=== PATIENT | male | born 1940 | race Caucasian/White ===

== ENCOUNTER 2022-03-28 17:33 | Emergency (ER) | payer MEDICAID, SELFPAY ==
--- NOTE | ~2022-03-28 | CT_ITS ---
EXAMINATION: CT HEAD WITHOUT CONTRAST (STROKE PROTOCOL) CLINICAL INFORMATION: Aphasia COMPARISON: None. TECHNIQUE: Contiguous axial imaging was performed from the skull base to vertex without intravenous administration of contrast. Coronal and sagittal reformatted images are performed at the CT scanner. [This CT examination was performed using dose optimization techniques as appropriate, variously including the following: *Automated exposure control *Adjustment of mA and/or kV according to patient size (this includes techniques or standardized protocols for targeted exams where dose is matched to indication/reason for exam; i.e. extremities or head) *Use of iterative reconstruction technique] DLP: 772 mGy-cm. FINDINGS: There is no evidence of acute intracranial hemorrhage or territorial infarction. No abnormal mass-effect or midline shift is seen. Quintanilla to white matter differentiation is well preserved. No extra-axial fluid collections are identified. There is generalized global volume loss. There is mild prominence of the ventricles and the sulci . There is mild hypodensity of the periventricular white matter due to chronic small vessel ischemic disease. There are vascular calcifications of the internal carotid arteries bilaterally. There is no osseous abnormality. The mastoid air cells and visualized portions of the paranasal sinuses are well-aerated. CT/CT head for stroke IMPRESSION: No acute intracranial pathology. This critical result was discussed with Dr Vero Cohen at 1748 hours on 03/28/2022. It was ascertained that the content and urgency of the report was understood at the time of direct communication.
--- NOTE | ~2022-03-28 | CT_ITS ---
EXAMINATION: CT ANGIOGRAM NECK WITH CONTRAST CT ANGIOGRAM BRAIN WITH CONTRAST CT CERVICAL SPINE WITHOUT CONTRAST CLINICAL INFORMATION: Stroke. Trauma. COMPARISON: None. TECHNIQUE: CT cervical spine was performed without contrast. Test bolus sequences followed by intravenous administration 100 mL of Omnipaque 350. Helical imaging was performed in the axial plane from the thoracic inlet to the skull vertex. Delayed postcontrast imaging of the head was also performed. The data was processed at the vascular technologist sonographer workstation for generation of MIP sequences. Angled MIPs and volume rendered reformatted images were also generated at an offline 3D workstation. Stenoses are assessed in accordance with NASCET criteria unless otherwise indicated. This CT examination was performed using dose optimization techniques as appropriate, variously including the following: *Automated exposure control *Adjustment of mA and/or kV according to patient size (this includes techniques or standardized protocols for targeted exams where dose is matched to indication/reason for exam; i.e. extremities or head) *Use of iterative reconstruction technique DLP: 2129 mGy-cm FINDINGS: Head CT: There is no intracranial hemorrhage, large acute infarction, or mass lesion. The ventricles are normal in size and configuration without evidence of hydrocephalus. No abnormal enhancement is seen. The dural venous sinuses are normally opacified. The visualized paranasal sinuses and mastoid air cells are clear. Neck CTA: Atheromatous changes are seen involving the aortic arch but without associated stenosis of the great vessel origins. The bilateral common carotid arteries are patent. There is intraluminal thrombus within the proximal left internal carotid artery as well as in the proximal left external carotid artery. Intraluminal clot results in severe stenosis of the proximal left internal carotid artery. More distally the cervical left ICA is patent. Mild atheromatous changes are seen at the right carotid bifurcation without significant stenosis. Both cervical ICAs demonstrate mildly beaded morphology which may represent underlying fibromuscular dysplasia. There is focal stenosis of the right and left vertebral artery origins. Atheromatous changes are seen along the cervical segment of left vertebral artery without high-grade narrowing. Head CTA: The intracranial ICAs are patent. There is focal occlusion of the proximal left M2 MCA segment the left-sided MCA collaterals are decreased compared with the contralateral side. The ACAs are patent. The right MCA is patent. The intradural vertebral arteries demonstrate significant atheromatous changes distally with moderate stenosis at the left vertebral basilar junction. There is origin of the right APPLE SORTER. Both hi lift operator are patent. No definite aneurysm is seen. Non-vascular findings: The cervical soft tissues are within normal limits. No consolidation is seen within the lungs. Cervical spine: The cervical vertebral bodies maintain normal heights and alignment. No fractures seen. The craniovertebral junction is intact. There is no significant osseous narrowing of the spinal canal. There is uncovertebral hypertrophy mildly narrowing the neural foramina. CT/CT angio head neck stroke IMPRESSION: CT HEAD: No intracranial hemorrhage or large acute infarction. 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 Intraluminal thrombus also seen within the proximal left external carotid artery. CTA HEAD: 1. Occlusion of the proximal left M2 MCA segment with decreased left MCA collaterals. Cervical spine: No fracture or malalignment. This critical result was discussed with Dr. Pham on 03/28/2022 6:24 PM, and it was ascertained that the content and urgency of the report was understood at the time of direct communication.
--- NOTE | ~2022-03-28 | CT_ITS ---
EXAMINATION: CT ANGIOGRAM NECK WITH CONTRAST CT ANGIOGRAM BRAIN WITH CONTRAST CT CERVICAL SPINE WITHOUT CONTRAST CLINICAL INFORMATION: Stroke. Trauma. COMPARISON: None. TECHNIQUE: CT cervical spine was performed without contrast. Test bolus sequences followed by intravenous administration 100 mL of Omnipaque 350. Helical imaging was performed in the axial plane from the thoracic inlet to the skull vertex. Delayed postcontrast imaging of the head was also performed. The data was processed at the fish technologist workstation for generation of MIP sequences. Angled MIPs and volume rendered reformatted images were also generated at an offline 3D workstation. Stenoses are assessed in accordance with NASCET criteria unless otherwise indicated. This CT examination was performed using dose optimization techniques as appropriate, variously including the following: *Automated exposure control *Adjustment of mA and/or kV according to patient size (this includes techniques or standardized protocols for targeted exams where dose is matched to indication/reason for exam; i.e. extremities or head) *Use of iterative reconstruction technique DLP: 2129 mGy-cm FINDINGS: Head CT: There is no intracranial hemorrhage, large acute infarction, or mass lesion. The ventricles are normal in size and configuration without evidence of hydrocephalus. No abnormal enhancement is seen. The dural venous sinuses are normally opacified. The visualized paranasal sinuses and mastoid air cells are clear. Neck CTA: Atheromatous changes are seen involving the aortic arch but without associated stenosis of the great vessel origins. The bilateral common carotid arteries are patent. There is intraluminal thrombus within the proximal left internal carotid artery as well as in the proximal left external carotid artery. Intraluminal clot results in severe stenosis of the proximal left internal carotid artery. More distally the cervical left ICA is patent. Mild atheromatous changes are seen at the right carotid bifurcation without significant stenosis. Both cervical ICAs demonstrate mildly beaded morphology which may represent underlying fibromuscular dysplasia. There is focal stenosis of the right and left vertebral artery origins. Atheromatous changes are seen along the cervical segment of left vertebral artery without high-grade narrowing. Head CTA: The intracranial ICAs are patent. There is focal occlusion of the proximal left M2 MCA segment the left-sided MCA collaterals are decreased compared with the contralateral side. The ACAs are patent. The right MCA is patent. The intradural vertebral arteries demonstrate significant atheromatous changes distally with moderate stenosis at the left vertebral basilar junction. There is origin of the right OPERATIONS SECTION MANAGER. Both emu farm worker are patent. No definite aneurysm is seen. Non-vascular findings: The cervical soft tissues are within normal limits. No consolidation is seen within the lungs. Cervical spine: The cervical vertebral bodies maintain normal heights and alignment. No fractures seen. The craniovertebral junction is intact. There is no significant osseous narrowing of the spinal canal. There is uncovertebral hypertrophy mildly narrowing the neural foramina. CT/CT cervical spine wo IV con IMPRESSION: CT HEAD: No intracranial hemorrhage or large acute infarction. 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 Intraluminal thrombus also seen within the proximal left external carotid artery. CTA HEAD: 1. Occlusion of the proximal left M2 MCA segment with decreased left MCA collaterals. Cervical spine: No fracture or malalignment. This critical result was discussed with Dr. Pham on 03/28/2022 6:24 PM, and it was ascertained that the content and urgency of the report was understood at the time of direct communication.
--- NOTE | 2022-03-28 17:37 | ECG_ITS ---
Test Reason : AMS Blood Pressure : / mmHG Vent. Rate : 069 BPM Atrial Rate : 069 BPM P-R Int : 152 ms QRS Dur : 104 ms QT Int : 440 ms P-R-T Axes : 064 000 137 degrees QTc Int : 471 ms Normal sinus rhythm with sinus arrhythmia Left ventricular hypertrophy with repolarization abnormality ( R in aVL , Sokolow-Lopez , Christiano product ) Inferior infarct , age undetermined Abnormal ECG No previous ECGs available Referred By: Noel Pahm Electronically Signed By:ELIZABETH SLOAN
[2022-03-28 17:43] VITALS: BMI 25.0
[2022-03-28 17:50] VITALS: BP 190/90; PULSE 54; RESP 16; O2SAT 96
[2022-03-28 17:50] LABS: MANUAL DIFF FLAG NO
--- NOTE | 2022-03-28 17:51 | ED.NEUROSD ---
HPI - Neuro Symptoms/Deficit General Chief Complaint: Stroke Stated Complaint: stroke alert Time Seen by Provider: 03/28/22 17:35 Source: family and EMS Mode of arrival: EMS History of Present Illness HPI Narrative: Pt was seen at arrival,hx taken by son with financial aid advisor (Socrates) per son since noon pt has been complaining of rt side numbness the fell 1/2 h ago sustaine head injury and frontal abrasion,he arrive with Ccollar aphasic at thsi time directed to ct Onset (ago): hour(s) (6 h ago (this was confermed by son)) Timing confirmed by: other (son ) Location: speech Severity: moderate Related Data Allergies Allergy/AdvReac Type Severity Reaction Status Date / Time Unable to Assess Allergy Unverified 03/28/22 17:35 Review of Systems Review of Systems: Yes Unobtainable due to mental condition PMFSH Past Medical History [facility] Narrative: HTN/CAD Social History Social History Advance Directives: No Advance Directives Information Provided: Yes Physical Exam Vital Signs: Vital Signs: Last Vital Signs Pulse 54 03/28/22 17:50 Resp 16 03/28/22 17:50 BP 201/86 H 03/28/22 18:26 Pulse Ox 96 03/28/22 17:50 O2 Del Method 03/28/22 17:50 BMI result Body Mass Index 25.0 Const: Other: aphasic ,abrasion in the nose Nutritional Appearance: average body habitus Orientation/consciousness: Other orientation findings (aphasic) HEENT: Head: Yes other (abrasion nose) Mouth: Normal oral and palatal mucosa present Eyes: General: appearance normal, both eyes and all related structures Neck: Other: c-collar on Chest: Chest palpation & inspection: normal inspection of the chest Resp: Effort & Inspection: normal respiratory effort Auscultation: clear to auscultation bilaterally Cardio: Jugular venous distension: no JVD Rate: regular rate Rhythm: regular rhythm GI: Inspection: Yes normal to inspection Palpation (GI): Soft to palpation, not firm and nontender Auscultation: normal bowel sounds Neuro: Other: He is aphasic he has a dense hemyplegia in the right side he moves the left side of the body okay unable to follow command fully he has a stroke scale calculated of about 23 Course Reevaluation(s) Reevaluation #1: spoke with neurologist Dr Wallace no TPA out of window Time: 18:00 Reevaluation #2: called to [facility] requested to speak to stroke team they will calll me back,cta showed MCA occlusion ,I was just notified by neuroradiologist Time: 18:32 Reevaluation #3: Spoke with [facility] accepted in transfer Medications Administered Discontinued Medications Generic Name Dose Route Start Last Admin Trade Name Kathy PRN Reason Stop Dose Admin Iohexol 100 ml 03/28/22 18:53 03/28/22 18:53 Iohexol 350 Mg/Ml 100 Ml Infus..Btl IV 03/28/22 18:54 70 ml ONCE ONE Administration Labetalol HCl 5 mg 03/28/22 18:41 03/28/22 18:52 Labetalol Hcl 100 Mg/20 Ml Vial IVPUSH 03/28/22 18:42 5 mg ONCE ONE Administration Medical Decision Making Medical Decision Making [facility] Narrative: This is a 81 years old man who presented with right hemispheric stroke, according to the son and the onset was 6 hours ago he was numb weak in the right side but got worse fell out of the bed. Because symptoms started and noon according to the son I do not think tPA is indicated, also there is a fall with an abrasion in the face. I did CT angiography if he has a large vessel occlusion will consider transfer to tertiary center Consult Healthcare Provider Management of the patient was discussed with: Keymodule Assembly Supervisor (neurologist Dr Mckinley) Lab Data Result Diagrams: 03/28/22 17:45 03/28/22 18:27 Labs: Lab Results 03/28/22 03/28/22 03/28/22 Range/Units 17:44 17:44 17:45 WBC 7.2 (4.8-10.8) X10*3/uL RBC 4.58 L (4.60-5.80) X10*6/uL Hgb 14.2 (14.0-18.0) g/dl Hct 41.0 L (42.0-52.0) % MCV 89.5 (80.0-98.0) fL MCH 31.0 (27.0-33.0) pg MCHC 34.6 (31.0-36.0) g/dl RDW 12.7 (11.0-16.0) % Plt Count 214 (160-400) X10*3/uL MPV 11.1 (9.4-12.4) fL Immature Gran % (Auto) 0.3 (0.0-0.4) % Neut % (Auto) 59.4 (45-73) % Lymph % (Auto) 29.2 (20-40) % Teller % (Auto) 6.5 (2-11) % Eos % (Auto) 4.3 H (0-4) % Baso % (Auto) 0.3 (0-2) % Lymph # (Auto) 2.1 (1.2-4.9) X10*3/uL Teller # (Auto) 0.5 (0.1-1.2) X10*3/uL Eos # (Auto) 0.3 (0.0-0.4) X10*3/uL Baso # (Auto) 0.0 (0.0-0.2) X10*3/uL Abs Immat Gran (auto) 0.02 (0.00-0.03) X10*3/uL Absolute Neuts (auto) 4.3 (2.0-8.3) x10*3/uL Absolute Nucleated RBC 0.000 (0.0-0.012) X10*3/uL Nucleated RBC % (auto) 0.0 (0.0-0.2) /100WBC PT (10.0-13.1) SEC Whole Blood PT 12.5 (11.1-13.5) sec INR (0.9-1.1) Whole Blood INR 1.0 (0.9-1.1) APTT (26.0-36.4) SEC Sodium (135-145) mmol/L Potassium (3.3-5.1) mmol/L Chloride (96-108) mmol/L Carbon Dioxide (22-29) mmol/L Anion Gap (12-20) BUN (9-16) mg/dL Creatinine (0.5-1.4) mg/dL Estim Creat Clear Calc Estimated GFR POC Glucose 146 H (60-115) mg/dL Random Glucose (60-115) mg/dL Calcium (8.4-10.2) mg/dL Total Bilirubin (0.0-1.0) mg/dL AST (5-37) U/L ALT (0-40) U/L Alkaline Phosphatase (39-117) U/L Troponin I High Sens (<3.5-35.0) ng/L Total Protein (6.5-8.0) g/dL Albumin (3.5-5.0) g/dL COVID-19 (CHARLES) (Negative) COVID-19 Clin Com 03/28/22 03/28/22 03/28/22 Range/Units 17:45 17:45 17:45 WBC (4.8-10.8) X10*3/uL RBC (4.60-5.80) X10*6/uL Hgb (14.0-18.0) g/dl Hct (42.0-52.0) % MCV (80.0-98.0) fL MCH (27.0-33.0) pg MCHC (31.0-36.0) g/dl RDW (11.0-16.0) % Plt Count (160-400) X10*3/uL MPV (9.4-12.4) fL Immature Gran % (Auto) (0.0-0.4) % Neut % (Auto) (45-73) % Lymph % (Auto) (20-40) % Teller % (Auto) (2-11) % Eos % (Auto) (0-4) % Baso % (Auto) (0-2) % Lymph # (Auto) (1.2-4.9) X10*3/uL Teller # (Auto) (0.1-1.2) X10*3/uL Eos # (Auto) (0.0-0.4) X10*3/uL Baso # (Auto) (0.0-0.2) X10*3/uL Abs Immat Gran (auto) (0.00-0.03) X10*3/uL Absolute Neuts (auto) (2.0-8.3) x10*3/uL Absolute Nucleated RBC (0.0-0.012) X10*3/uL Nucleated RBC % (auto) (0.0-0.2) /100WBC PT 11.9 (10.0-13.1) SEC Whole Blood PT (11.1-13.5) sec INR 1.0 (0.9-1.1) Whole Blood INR (0.9-1.1) APTT 29.2 Cancelled (26.0-36.4) SEC Sodium (135-145) mmol/L Potassium (3.3-5.1) mmol/L Chloride (96-108) mmol/L Carbon Dioxide (22-29) mmol/L Anion Gap (12-20) BUN (9-16) mg/dL Creatinine (0.5-1.4) mg/dL Estim Creat Clear Calc Estimated GFR POC Glucose (60-115) mg/dL Random Glucose (60-115) mg/dL Calcium (8.4-10.2) mg/dL Total Bilirubin (0.0-1.0) mg/dL AST (5-37) U/L ALT (0-40) U/L Alkaline Phosphatase (39-117) U/L Troponin I High Sens 232.0 H* (<3.5-35.0) ng/L Total Protein (6.5-8.0) g/dL Albumin (3.5-5.0) g/dL COVID-19 (CHARLES) (Negative) COVID-19 Clin Com 03/28/22 03/28/22 Range/Units 18:27 18:32 WBC (4.8-10.8) X10*3/uL RBC (4.60-5.80) X10*6/uL Hgb (14.0-18.0) g/dl Hct (42.0-52.0) % MCV (80.0-98.0) fL MCH (27.0-33.0) pg MCHC (31.0-36.0) g/dl RDW (11.0-16.0) % Plt Count (160-400) X10*3/uL MPV (9.4-12.4) fL Immature Gran % (Auto) (0.0-0.4) % Neut % (Auto) (45-73) % Lymph % (Auto) (20-40) % Teller % (Auto) (2-11) % Eos % (Auto) (0-4) % Baso % (Auto) (0-2) % Lymph # (Auto) (1.2-4.9) X10*3/uL Teller # (Auto) (0.1-1.2) X10*3/uL Eos # (Auto) (0.0-0.4) X10*3/uL Baso # (Auto) (0.0-0.2) X10*3/uL Abs Immat Gran (auto) (0.00-0.03) X10*3/uL Absolute Neuts (auto) (2.0-8.3) x10*3/uL Absolute Nucleated RBC (0.0-0.012) X10*3/uL Nucleated RBC % (auto) (0.0-0.2) /100WBC PT (10.0-13.1) SEC Whole Blood PT (11.1-13.5) sec INR (0.9-1.1) Whole Blood INR (0.9-1.1) APTT (26.0-36.4) SEC Sodium 135 (135-145) mmol/L Potassium 3.0 L (3.3-5.1) mmol/L Chloride 99 (96-108) mmol/L Carbon Dioxide 29 (22-29) mmol/L Anion Gap 10 L (12-20) BUN 19 H (9-16) mg/dL Creatinine 1.33 (0.5-1.4) mg/dL Estim Creat Clear Calc 42.1 Estimated GFR 52 POC Glucose (60-115) mg/dL Random Glucose 152 H (60-115) mg/dL Calcium 9.0 (8.4-10.2) mg/dL Total Bilirubin 1.4 H (0.0-1.0) mg/dL AST 17 (5-37) U/L ALT 16 (0-40) U/L Alkaline Phosphatase 81 (39-117) U/L Troponin I High Sens (<3.5-35.0) ng/L Total Protein 7.1 (6.5-8.0) g/dL Albumin 4.1 (3.5-5.0) g/dL COVID-19 (CHARLES) Negative (Negative) COVID-19 Clin Com See Note Critical Care Time Critical Care Time Critical Care Time: Yes Total Critical Care Time: 60 Attestation: Taking care of the patient, speaking with the family, speaking with our Neurology, speaking with the neurology a [facility] and the neuroradiologist [facility], arranging transfer Discharge Plan Discharge Clinical Impression: Cerebrovascular accident Patient Disposition: Xfer Acute Care Hospital Transfer Details: Transfer [facility] Interventions: Acute Care Transfer Worksheet (ED) Last Done: 03/28/22 19:12 Discharge Date/Time: 03/28/22 19:13
[2022-03-28 17:53] LABS: Basophils Percent Auto 0.3 % (0-2); Eosinophils Absolute Auto 0.3 X10*3/uL (0.0-0.4); Eosinophils Percent Auto 4.3 % (0-4); Hemoglobin 14.2 g/dl (14.0-18.0); Imm Gran Abs Auto 0.02 X10*3/uL (0.00-0.03); Imm Gran Pct Auto 0.3 % (0.0-0.4); Lymphocytes Absolute Auto 2.1 X10*3/uL (1.2-4.9); Lymphocytes Percent Auto 29.2 % (20-40); Mean Corpuscular HGB Conc 34.6 g/dl (31.0-36.0); Mean Corpuscular Volume 89.5 fL (80.0-98.0); Mean Platelet Volume 11.1 fL (9.4-12.4); Monocytes Absolute Auto 0.5 X10*3/uL (0.1-1.2); Monocytes Percent Auto 6.5 % (2-11); Neutrophils Absolute Auto 4.3 x10*3/uL (2.0-8.3); Neutrophils Percent Auto 59.4 % (45-73); Platelet Count 214 X10*3/uL (160-400); Red Blood Count 4.58 X10*6/uL (4.60-5.80); Red Cell Distribution Width 12.7 % (11.0-16.0); White Blood Count 7.2 X10*3/uL (4.8-10.8)
[2022-03-28 17:59] LABS: Prothrombin Time 11.9 SEC (10.0-13.1)
[2022-03-28 18:01] LABS: Partial Thromboplastin Time 29.2 SEC (26.0-36.4)
--- NOTE | 2022-03-28 18:06 | PC.NURSE ---
After talking with son Pt started having symptoms at 10am and noon. Symptoms worsened at 1730.
[2022-03-28 18:26] VITALS: BP 201/86
[2022-03-28 18:32] LABS: Prothrombin Time Whole Bld POC 12.5 sec (11.1-13.5)
[2022-03-28 18:33] LABS: Glucose, Whole Blood 146 mg/dL (60-115)
[2022-03-28 18:48] LABS: Alanine Aminotransferase 16 U/L (0-40); Albumin Level 4.1 g/dL (3.5-5.0); Alkaline Phosphatase 81 U/L (39-117); Anion Gap 10 (12-20); Aspartate Amino Transferase 17 U/L (5-37); Bilirubin Total 1.4 mg/dL (0.0-1.0); Blood Urea Nitrogen 19 mg/dL (9-16); Carbon Dioxide 29 mmol/L (22-29); Chloride 99 mmol/L (96-108); Creatinine Clr Calc Pharmacy 42.1; Estimated Glomerular Filt Rate 52; Glucose Random 152 mg/dL (60-115); Sodium 135 mmol/L (135-145); Total Protein 7.1 g/dL (6.5-8.0)
[2022-03-28] MEDS: Labetalol HCL 100 MG/20 ML VIAL IVPUSH (18:52)
[2022-03-28] MEDS: iohexoL 350 MG/ML 100 ML INFUS..BTL IV (18:53)
[2022-03-28 18:59] LABS: COVID-19 Test Negative (Negative)
--- NOTE | 2022-03-28 19:06 | MHC.EDTECH ---
At 183 was making a call to the Stroke transfer line. At 184 [facility] called and accepted the patient, to the ER.Radha called for a stat ALS at 1842 per .[facility] arrived at 1900 to transport patient.Davin green
== END 2022-03-28 19:13 | disposition short-term general hospital (02) ==
PROVIDERS: Emergency Provider Emergency Medicine; PCP Internal Medicine
DX: I63.9 Cerebral infarction, unspecified (principal); R20.0 Anesthesia of skin; Z20.822 Contact with and (suspected) exposure to COVID-19; Z79.899 Other long term (current) drug therapy
CPT/HCPCS: 36415; 70450; 70496; 70498; 72125; 80053; 82947; 84484; 85025; 85610; 85730; 87635; 93005; 96374; 99285; Q9967

== ENCOUNTER 2022-07-03 20:53 | Emergency (ER) | payer OTHER, SELFPAY ==
--- NOTE | ~2022-07-03 | XR_ITS ---
EXAMINATION: XR CHEST CLINICAL INFORMATION: Chest pain COMPARISON: None available. TECHNIQUE: Frontal view of the chest was obtained. FINDINGS: The lungs are hyperinflated but clear of acute process. Heart size is normal. Battery operated hardware likely recorder is noted overlying the left mid chest. Pulmonary vascularity is prominent suspicious of mild congestion. There is mild levoscoliosis of dorsal spine. XR/XR chest 1V IMPRESSION: Suspect mild pulmonary vascular congestion. No acute pneumonic process seen.
--- NOTE | 2022-07-03 20:57 | ECG_ITS ---
Test Reason : CP Blood Pressure : / mmHG Vent. Rate : 074 BPM Atrial Rate : 074 BPM P-R Int : 148 ms QRS Dur : 094 ms QT Int : 408 ms P-R-T Axes : 079 015 105 degrees QTc Int : 452 ms Poor data quality Normal sinus rhythm ST & T wave abnormality, consider lateral ischemia Possible Inferior infarct Abnormal ECG When compared to the previous EKG of No significant changes seen Referred By: Sarbjit Pitts Electronically Signed By:KARY STAFFORD MD
[2022-07-03 20:59] VITALS: BP 146/68; PULSE 70; RESP 18; TEMP 36.7; O2SAT 99; BMI 19.3
--- NOTE | 2022-07-03 21:01 | ED_ITS ---
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 comes here for sharp chest pain started at 20:00 lasted for 2 hours patient had cardiogram and 2 sets of troponin done prior to my evaluation which were normal no delta change in troponin pain was sharp in character lasting for few seconds no radiation of the pain no diaphoresis no shortness of breath <Kurtis Rojas MD - Last Filed: 07/04/22 01:08> Related Data Allergies/adverse reactions: Allergies Allergy/AdvReac Type Severity Reaction Status Date / Time No Known Allergies Allergy Verified 07/03/22 21:03 <Sarbjit Pitts - Last Filed: 07/03/22 21:03> Review of Systems Review of Systems: Yes all other systems are reviewed and are negative <Kurtis Rojas MD - Last Filed: 07/04/22 01:08> [facility] Social History Social History: Social History Advance Directives: No <Sarbjit Pitts - Last Filed: 07/03/22 21:03> Physical Exam ED Vital Signs: Vital Signs - 24 hr 07/03/22 20:59 07/04/22 00:35 Temperature 98.0 F 98.4 F Pulse Rate 70 78 Respiratory Rate 18 12 Blood Pressure 146/68 H 151/70 H Pulse Oximetry 99 99 Oxygen Delivery Method Room Air Room Air BMI result Body Mass Index 19.3 <Sarbjit Pitts - Last Filed: 07/03/22 21:03> Vital Signs - 24 hr 07/03/22 20:59 07/04/22 00:35 Temperature 98.0 F 98.4 F Pulse Rate 70 78 Respiratory Rate 18 12 Blood Pressure 146/68 H 151/70 H Pulse Oximetry 99 99 Oxygen Delivery Method Room Air Room Air BMI result Body Mass Index 19.3 <Kurtis Rojas MD - Last Filed: 07/04/22 01:08> Appearance: Alert. Oriented X3. No acute distress. ENT: Pharynx normal. Oral Mucosa moist Neck: Normal inspection. Neck supple. CVS: Normal heart rate and rhythm. Pulses normal. Respiratory: No respiratory distress. Equal air entry bilateral, no wheezing/rales/rhonchi Abdomen: Soft and nontender. Bowel sounds are present, Skin: Skin warm and dry. Normal skin color. Normal skin turgor. Extremities: No lower extremity edema. No calf tenderness Neuro: Oriented X 3. Expressive aphasia right hemiparesis <Kurtis Rojas MD - Last Filed: 07/04/22 01:08> Course Course Course Narrative: 81-year-old male who is primarily Serbian-speaking presents for evaluation of chest pain. He has a history of previous CVA. He has expressive aphasia at baseline that is unchanged per family. He has decreased range of motion of the right upper extremity which is also at baseline. The patient has had chest pain for the last 20 or 30 minutes. EKG, labs ordered. Chest x-ray also ordered. <Sarbjit Pitts - Last Filed: 07/03/22 21:03> Medical Decision Making Medical Decision Making [facility] Narrative: Patient with atypical chest pain and normal EKG no change in delta troponin patient has event monitor placed on his left chest which she pressed at the time of chest pain did not notice any palpitations will discharge patient home advised to follow up with lithographic proofer <Kurtis Rojas MD - Last Filed: 07/04/22 01:08> Lab Data [facility] Lab Attestation statement: I reviewed the patient's lab results. <Kurtis Rojas MD - Last Filed: 07/04/22 01:08> Result Diagrams: 07/03/22 21:17 07/03/22 21:17 <Sarbjit Pitts - Last Filed: 07/03/22 21:03> Labs: Lab Results 07/03/22 07/03/22 07/03/22 Range/Units 21:07 21:17 21:17 WBC 7.7 (4.8-10.8) X10*3/uL RBC 3.44 L D (4.60-5.80) X10*6/uL Hgb 10.9 L D (14.0-18.0) g/dl Hct 32.6 L D (42.0-52.0) % MCV 94.8 (80.0-98.0) fL MCH 31.7 (27.0-33.0) pg MCHC 33.4 (31.0-36.0) g/dl RDW 13.2 (11.0-16.0) % Plt Count 272 D (160-400) X10*3/uL MPV 10.8 (9.4-12.4) fL Immature Gran % (Auto) 0.3 (0.0-0.4) % Neut % (Auto) 60.4 (45-73) % Lymph % (Auto) 22.4 (20-40) % [place] % (Auto) 7.8 (2-11) % Eos % (Auto) 8.7 H (0-4) % Baso % (Auto) 0.4 (0-2) % Lymph # (Auto) 1.7 (1.2-4.9) X10*3/uL [place] # (Auto) 0.6 (0.1-1.2) X10*3/uL Eos # (Auto) 0.7 H (0.0-0.4) X10*3/uL Baso # (Auto) 0.0 (0.0-0.2) X10*3/uL Abs Immat Gran (auto) 0.02 (0.00-0.03) X10*3/uL Absolute Neuts (auto) 4.7 (2.0-8.3) x10*3/uL Absolute Nucleated RBC 0.000 (0.0-0.012) X10*3/uL Nucleated RBC % (auto) 0.0 (0.0-0.2) /100WBC PT 11.7 (10.0-13.1) SEC INR 1.0 (0.9-1.1) APTT 30.7 (26.0-36.4) SEC Sodium (135-145) mmol/L Potassium (3.3-5.1) mmol/L Chloride (96-108) mmol/L Carbon Dioxide (22-29) mmol/L Anion Gap (12-20) BUN (9-16) mg/dL Creatinine (0.5-1.4) mg/dL Estim Creat Clear Calc Estimated GFR Random Glucose (60-115) mg/dL Calcium (8.4-10.2) mg/dL Magnesium (1.6-2.6) mg/dL Total Bilirubin (0.0-1.0) mg/dL AST (5-37) U/L ALT (0-40) U/L Alkaline Phosphatase (39-117) U/L Troponin I High Sens (<3.5-35.0) ng/L Total Protein (6.5-8.0) g/dL Albumin (3.5-5.0) g/dL Lipase (8-78) U/L Influenza Type A (PCR) NEGATIVE (Negative) Influenza Type B (PCR) NEGATIVE (Negative) RSV RNA Qual (PCR) NEGATIVE (Negative) SARS-CoV-2 RNA (RT-PCR) NEGATIVE (Negative) 07/03/22 07/03/22 07/04/22 Range/Units 21:17 21:17 00:27 WBC (4.8-10.8) X10*3/uL RBC (4.60-5.80) X10*6/uL Hgb (14.0-18.0) g/dl Hct (42.0-52.0) % MCV (80.0-98.0) fL MCH (27.0-33.0) pg MCHC (31.0-36.0) g/dl RDW (11.0-16.0) % Plt Count (160-400) X10*3/uL MPV (9.4-12.4) fL Immature Gran % (Auto) (0.0-0.4) % Neut % (Auto) (45-73) % Lymph % (Auto) (20-40) % [place] % (Auto) (2-11) % Eos % (Auto) (0-4) % Baso % (Auto) (0-2) % Lymph # (Auto) (1.2-4.9) X10*3/uL [place] # (Auto) (0.1-1.2) X10*3/uL Eos # (Auto) (0.0-0.4) X10*3/uL Baso # (Auto) (0.0-0.2) X10*3/uL Abs Immat Gran (auto) (0.00-0.03) X10*3/uL Absolute Neuts (auto) (2.0-8.3) x10*3/uL Absolute Nucleated RBC (0.0-0.012) X10*3/uL Nucleated RBC % (auto) (0.0-0.2) /100WBC PT (10.0-13.1) SEC INR (0.9-1.1) APTT (26.0-36.4) SEC Sodium 138 (135-145) mmol/L Potassium 4.6 D (3.3-5.1) mmol/L Chloride 105 (96-108) mmol/L Carbon Dioxide 24 (22-29) mmol/L Anion Gap 14 (12-20) BUN 18 H (9-16) mg/dL Creatinine 1.22 (0.5-1.4) mg/dL Estim Creat Clear Calc 43.7 Estimated GFR 57 Random Glucose 144 H (60-115) mg/dL Calcium 9.1 (8.4-10.2) mg/dL Magnesium 1.9 (1.6-2.6) mg/dL Total Bilirubin 0.6 (0.0-1.0) mg/dL AST 19 (5-37) U/L ALT 20 (0-40) U/L Alkaline Phosphatase 87 (39-117) U/L Troponin I High Sens 6.4 D 6.7 (<3.5-35.0) ng/L Total Protein 7.3 (6.5-8.0) g/dL Albumin 4.2 (3.5-5.0) g/dL Lipase 72 (8-78) U/L Influenza Type A (PCR) (Negative) Influenza Type B (PCR) (Negative) RSV RNA Qual (PCR) (Negative) SARS-CoV-2 RNA (RT-PCR) (Negative) <Sarbjit Pitts - Last Filed: 07/03/22 21:03> Lab Results 07/03/22 07/03/22 07/03/22 Range/Units 21:07 21:17 21:17 WBC 7.7 (4.8-10.8) X10*3/uL RBC 3.44 L D (4.60-5.80) X10*6/uL Hgb 10.9 L D (14.0-18.0) g/dl Hct 32.6 L D (42.0-52.0) % MCV 94.8 (80.0-98.0) fL MCH 31.7 (27.0-33.0) pg MCHC 33.4 (31.0-36.0) g/dl RDW 13.2 (11.0-16.0) % Plt Count 272 D (160-400) X10*3/uL MPV 10.8 (9.4-12.4) fL Immature Gran % (Auto) 0.3 (0.0-0.4) % Neut % (Auto) 60.4 (45-73) % Lymph % (Auto) 22.4 (20-40) % [place] % (Auto) 7.8 (2-11) % Eos % (Auto) 8.7 H (0-4) % Baso % (Auto) 0.4 (0-2) % Lymph # (Auto) 1.7 (1.2-4.9) X10*3/uL [place] # (Auto) 0.6 (0.1-1.2) X10*3/uL Eos # (Auto) 0.7 H (0.0-0.4) X10*3/uL Baso # (Auto) 0.0 (0.0-0.2) X10*3/uL Abs Immat Gran (auto) 0.02 (0.00-0.03) X10*3/uL Absolute Neuts (auto) 4.7 (2.0-8.3) x10*3/uL Absolute Nucleated RBC 0.000 (0.0-0.012) X10*3/uL Nucleated RBC % (auto) 0.0 (0.0-0.2) /100WBC PT 11.7 (10.0-13.1) SEC INR 1.0 (0.9-1.1) APTT 30.7 (26.0-36.4) SEC Sodium (135-145) mmol/L Potassium (3.3-5.1) mmol/L Chloride (96-108) mmol/L Carbon Dioxide (22-29) mmol/L Anion Gap (12-20) BUN (9-16) mg/dL Creatinine (0.5-1.4) mg/dL Estim Creat Clear Calc Estimated GFR Random Glucose (60-115) mg/dL Calcium (8.4-10.2) mg/dL Magnesium (1.6-2.6) mg/dL Total Bilirubin (0.0-1.0) mg/dL AST (5-37) U/L ALT (0-40) U/L Alkaline Phosphatase (39-117) U/L Troponin I High Sens (<3.5-35.0) ng/L Total Protein (6.5-8.0) g/dL Albumin (3.5-5.0) g/dL Lipase (8-78) U/L Influenza Type A (PCR) NEGATIVE (Negative) Influenza Type B (PCR) NEGATIVE (Negative) RSV RNA Qual (PCR) NEGATIVE (Negative) SARS-CoV-2 RNA (RT-PCR) NEGATIVE (Negative) 07/03/22 07/03/22 07/04/22 Range/Units 21:17 21:17 00:27 WBC (4.8-10.8) X10*3/uL RBC (4.60-5.80) X10*6/uL Hgb (14.0-18.0) g/dl Hct (42.0-52.0) % MCV (80.0-98.0) fL MCH (27.0-33.0) pg MCHC (31.0-36.0) g/dl RDW (11.0-16.0) % Plt Count (160-400) X10*3/uL MPV (9.4-12.4) fL Immature Gran % (Auto) (0.0-0.4) % Neut % (Auto) (45-73) % Lymph % (Auto) (20-40) % [place] % (Auto) (2-11) % Eos % (Auto) (0-4) % Baso % (Auto) (0-2) % Lymph # (Auto) (1.2-4.9) X10*3/uL [place] # (Auto) (0.1-1.2) X10*3/uL Eos # (Auto) (0.0-0.4) X10*3/uL Baso # (Auto) (0.0-0.2) X10*3/uL Abs Immat Gran (auto) (0.00-0.03) X10*3/uL Absolute Neuts (auto) (2.0-8.3) x10*3/uL Absolute Nucleated RBC (0.0-0.012) X10*3/uL Nucleated RBC % (auto) (0.0-0.2) /100WBC PT (10.0-13.1) SEC INR (0.9-1.1) APTT (26.0-36.4) SEC Sodium 138 (135-145) mmol/L Potassium 4.6 D (3.3-5.1) mmol/L Chloride 105 (96-108) mmol/L Carbon Dioxide 24 (22-29) mmol/L Anion Gap 14 (12-20) BUN 18 H (9-16) mg/dL Creatinine 1.22 (0.5-1.4) mg/dL Estim Creat Clear Calc 43.7 Estimated GFR 57 Random Glucose 144 H (60-115) mg/dL Calcium 9.1 (8.4-10.2) mg/dL Magnesium 1.9 (1.6-2.6) mg/dL Total Bilirubin 0.6 (0.0-1.0) mg/dL AST 19 (5-37) U/L ALT 20 (0-40) U/L Alkaline Phosphatase 87 (39-117) U/L Troponin I High Sens 6.4 D 6.7 (<3.5-35.0) ng/L Total Protein 7.3 (6.5-8.0) g/dL Albumin 4.2 (3.5-5.0) g/dL Lipase 72 (8-78) U/L Influenza Type A (PCR) (Negative) Influenza Type B (PCR) (Negative) RSV RNA Qual (PCR) (Negative) SARS-CoV-2 RNA (RT-PCR) (Negative) <Kurtis Rojas MD - Last Filed: 07/04/22 01:08> Independent Interpretation I performed an independent interpretation of an: EKG <Kurtis Rojas MD - Last Filed: 07/04/22 01:08> Interpretation: Normal sinus rhythm LVH heart rate 74 beats per minute LV strain changes in the lateral leads as in the past EKG 04/04 no acute ischemia <Kurtis Rojas MD - Last Filed: 07/04/22 01:08> Discharge Plan Discharge Clinical Impression: Chest pain <Sarbjit Pitts - Last Filed: 07/03/22 21:03> Patient Disposition: Home, Self-Care <Sarbjit Pitts - Last Filed: 07/03/22 21:03> Instructions: Chest Pain (ED) <Sarbjit Pitts - Last Filed: 07/03/22 21:03> Additional Instructions: Continue aspirin and follow with lithographic proofer At this time there is no evidence of heart damage <Sarbjit Pitts - Last Filed: 07/03/22 21:03>
[2022-07-03 21:22] LABS: MANUAL DIFF FLAG NO
[2022-07-03 21:30] LABS: Basophils Percent Auto 0.4 % (0-2); Eosinophils Absolute Auto 0.7 X10*3/uL (0.0-0.4); Eosinophils Percent Auto 8.7 % (0-4); Hematocrit 32.6 % (42.0-52.0); Hemoglobin 10.9 g/dl (14.0-18.0); Imm Gran Abs Auto 0.02 X10*3/uL (0.00-0.03); Imm Gran Pct Auto 0.3 % (0.0-0.4); Lymphocytes Absolute Auto 1.7 X10*3/uL (1.2-4.9); Lymphocytes Percent Auto 22.4 % (20-40); Mean Corpuscular HGB Conc 33.4 g/dl (31.0-36.0); Mean Corpuscular Hemoglobin 31.7 pg (27.0-33.0); Mean Corpuscular Volume 94.8 fL (80.0-98.0); Mean Platelet Volume 10.8 fL (9.4-12.4); Monocytes Absolute Auto 0.6 X10*3/uL (0.1-1.2); Monocytes Percent Auto 7.8 % (2-11); Neutrophils Absolute Auto 4.7 x10*3/uL (2.0-8.3); Neutrophils Percent Auto 60.4 % (45-73); Platelet Count 272 X10*3/uL (160-400); Red Blood Count 3.44 X10*6/uL (4.60-5.80); Red Cell Distribution Width 13.2 % (11.0-16.0); White Blood Count 7.7 X10*3/uL (4.8-10.8)
[2022-07-03 21:31] LABS: Prothrombin Time 11.7 SEC (10.0-13.1)
[2022-07-03 21:34] LABS: Partial Thromboplastin Time 30.7 SEC (26.0-36.4)
[2022-07-03 21:42] LABS: Alanine Aminotransferase 20 U/L (0-40); Albumin Level 4.2 g/dL (3.5-5.0); Alkaline Phosphatase 87 U/L (39-117); Anion Gap 14 (12-20); Aspartate Amino Transferase 19 U/L (5-37); Bilirubin Total 0.6 mg/dL (0.0-1.0); Blood Urea Nitrogen 18 mg/dL (9-16); Calcium 9.1 mg/dL (8.4-10.2); Carbon Dioxide 24 mmol/L (22-29); Chloride 105 mmol/L (96-108); Creatinine Clr Calc Pharmacy 43.7; Estimated Glomerular Filt Rate 57; Glucose Random 144 mg/dL (60-115); Lipase 72 U/L (8-78); Magnesium 1.9 mg/dL (1.6-2.6); Potassium 4.6 mmol/L (3.3-5.1); Sodium 138 mmol/L (135-145); Total Protein 7.3 g/dL (6.5-8.0)
[2022-07-03 21:55] LABS: Troponin-I High Sensitivity 6.4 ng/L (<3.5-35.0)
[2022-07-03 22:03] LABS: Influenza A PCR NEGATIVE (Negative); Influenza B PCR NEGATIVE (Negative); Resp Syncy Virus RNA Qual PCR NEGATIVE (Negative); SARS COV2 PCR INHOUSE NEGATIVE (Negative)
[2022-07-04 00:35] VITALS: BP 151/70; PULSE 78; RESP 12; TEMP 36.9; O2SAT 99
--- NOTE | 2022-07-04 00:37 | PC.NURSE ---
Pt aox3 resting at the bedside in no apparent distress. Breaths are even, regular, and unlabored. Reports chest pain has resolved. Pending lab results. Pt aware of plan of care.
[2022-07-04 00:53] LABS: Troponin-I High Sensitivity 6.7 ng/L (<3.5-35.0)
--- NOTE | 2022-07-04 01:08 | PC.NURSE ---
Pt aox3 resting at the bedside. Report no pain. No apparent distress noted. Discharge instructions reviewed with pt. Pt verbalizes understanding. Wheelchair provided at discharge. Pt left with family member.
== END 2022-07-04 01:10 | disposition home or self-care (01) ==
PROVIDERS: Physician Assistant; Emergency Provider Internal Medicine
DX: R07.9 Chest pain, unspecified (principal); I69.951 Hemiplegia and hemiparesis following unspecified cerebrovascular disease affecting right dominant side; I69.920 Aphasia following unspecified cerebrovascular disease; Z20.822 Contact with and (suspected) exposure to COVID-19; Z20.828 Contact with and (suspected) exposure to other viral communicable diseases
CPT/HCPCS: 0241U; 36415; 71045; 80053; 83690; 83735; 84484; 85025; 85610; 85730; 93005; 99283; 99284

== ENCOUNTER 2022-08-15 12:59 | Outpatient (RCR) | payer OTHER, SELFPAY ==
[2022-08-15 13:11] VITALS: BP 133/67; PULSE 68
== END 2022-08-22 13:03 | disposition home or self-care (01) ==
LOC: HO.PT 12:59
PROVIDERS: PCP Pediatrics; Visit Provider Pediatrics
DX: I63.9 Cerebral infarction, unspecified (principal)
CPT/HCPCS: 97162

== ENCOUNTER 2022-10-01 16:59 | Emergency (ER) | payer OTHER, SELFPAY ==
--- NOTE | ~2022-10-01 | XR_ITS ---
EXAMINATION: XR CHEST CLINICAL INFORMATION: Chest pain. COMPARISON: Chest x-ray 07/03/2022 TECHNIQUE: 2 views of the chest were obtained. FINDINGS: Smooth bordered rounded 1 cm density over the right lower chest may be a nipple shadow or summation density versus a lung nodule. On chest x-ray 07/03/2022 in retrospect a suggestion of a similar nodular opacity over this area. Calcified right hilar lymph nodes. No acute airspace disease. No pulmonary vascular congestion. Heart size is normal. Cardiac mediastinal contours are normal. No pleural effusion. No pneumothorax. No acute osseous abnormality. XR/XR chest 2V IMPRESSION: 1. No acute airspace disease. 2. 1 cm smooth bordered rounded density over the right lower chest. Recommend a CT chest for follow-up.
--- NOTE | 2022-10-01 17:00 | ECG_ITS ---
Test Reason : pain Blood Pressure : / mmHG Vent. Rate : 079 BPM Atrial Rate : 079 BPM P-R Int : 140 ms QRS Dur : 088 ms QT Int : 378 ms P-R-T Axes : 071 034 115 degrees QTc Int : 433 ms Normal sinus rhythm Possible Left atrial enlargement Left ventricular hypertrophy with repolarization abnormality ( Sokolow-Lopez ) Possible Inferior infarct , age undetermined Abnormal ECG When compared with ECG of 03-JUL-2022 21:10, Borderline criteria for Inferior infarct are now Present Referred By: Sarbjit Pitts Electronically Signed By:ELIZABETH SLOAN
[2022-10-01 17:15] VITALS: BP 125/74; PULSE 81; RESP 16; TEMP 36.8; O2SAT 98; BMI 19.1
[2022-10-01 17:50] LABS: MANUAL DIFF FLAG NO
[2022-10-01 18:02] LABS: Basophils Percent Auto 0.2 % (0-2); Eosinophils Absolute Auto 0.2 X10*3/uL (0.0-0.4); Eosinophils Percent Auto 2.9 % (0-4); Hematocrit 37.7 % (42.0-52.0); Hemoglobin 12.7 g/dl (14.0-18.0); Imm Gran Abs Auto 0.01 X10*3/uL (0.00-0.03); Imm Gran Pct Auto 0.2 % (0.0-0.4); Lymphocytes Absolute Auto 0.6 X10*3/uL (1.2-4.9); Lymphocytes Percent Auto 8.7 % (20-40); Mean Corpuscular HGB Conc 33.7 g/dl (31.0-36.0); Mean Corpuscular Hemoglobin 30.2 pg (27.0-33.0); Mean Corpuscular Volume 89.8 fL (80.0-98.0); Mean Platelet Volume 11.2 fL (9.4-12.4); Monocytes Absolute Auto 0.3 X10*3/uL (0.1-1.2); Monocytes Percent Auto 3.9 % (2-11); Neutrophils Absolute Auto 5.6 x10*3/uL (2.0-8.3); Neutrophils Percent Auto 84.1 % (45-73); Platelet Count 212 X10*3/uL (160-400); Red Cell Distribution Width 13.8 % (11.0-16.0); White Blood Count 6.6 X10*3/uL (4.8-10.8)
[2022-10-01 18:07] LABS: Alanine Aminotransferase 20 U/L (0-40); Albumin Level 4.1 g/dL (3.5-5.0); Alkaline Phosphatase 92 U/L (39-117); Anion Gap 15 (12-20); Aspartate Amino Transferase 16 U/L (5-37); Bilirubin Total 1.5 mg/dL (0.0-1.0); Blood Urea Nitrogen 13 mg/dL (9-16); Calcium 9.7 mg/dL (8.4-10.2); Carbon Dioxide 24 mmol/L (22-29); Chloride 104 mmol/L (96-108); Estimated Glomerular Filt Rate > 60; Glucose Random 215 mg/dL (60-115); Lipase 36 U/L (8-78); Potassium 3.8 mmol/L (3.3-5.1); Sodium 139 mmol/L (135-145); Total Protein 7.8 g/dL (6.5-8.0)
[2022-10-01 18:10] LABS: Prothrombin Time 11.8 SEC (10.0-13.1)
[2022-10-01 18:13] LABS: Partial Thromboplastin Time 28.4 SEC (26.0-36.4)
[2022-10-01 18:15] LABS: Troponin-I High Sensitivity 4.4 ng/L (<3.5-35.0)
--- NOTE | 2022-10-01 19:55 | PC.NURSE ---
assumed care of patient at 1900 - ekg, labs, xray done. pt resting on stretcher on monitoring engineer. waiting to be seen by ED provider. ricardo contreras within reach. will CTM
[2022-10-01 20:00] VITALS: BP 142/70; PULSE 86; RESP 17; TEMP 38; O2SAT 98
[2022-10-01 20:56] VITALS: BP 157/76; PULSE 83; RESP 17; TEMP 38.1; O2SAT 96
[2022-10-01 21:15] LABS: Appearance Urine Clear; Color Urine Yellow; Glucose Urine UA Negative (Negative); Leukocyte Esterase Urine Moderate (2+) (Negative); Nitrite Urine Negative (Negative); Specific Gravity - Urine 1.015 (1.005-1.025); UMIC TRIGGER UACC YES; Urine Blood Negative (Negative); Urine Ketones Negative (Negative); Urine Protein 30 (1+) mg/dL (Neg-Trace)
--- NOTE | 2022-10-01 21:19 | PC.NURSE ---
vital signs updated. family at bedside. family and patient updated that we are still waiting for pt to be seen by ED provider. repeat troponin ordered, urinalysis sent, covid swab done as pt is now warm to touch, febrile at 100.6 . will alert ED provider. call contreras within reach. will CTM.
[2022-10-01 21:20] LABS: Bacteria Urine 4+ (None Seen); Hyaline Casts Urine 0-2 /LPF (0-2); RBC Urine 0-2 /HPF (0-2); Squamous Epithelial Cell Urine 0-2 /HPF (0-2); UACC Culture Trigger YES; WBC Urine >50 /HPF (0-5)
[2022-10-01 21:21] LABS: COVID-19 Test Negative (Negative); IDNOW Serial# BCCEAD1C
[2022-10-01 21:33] LABS: Troponin-I High Sensitivity 6.8 ng/L (<3.5-35.0)
[2022-10-01 22:00] VITALS: BP 149/72; PULSE 82; RESP 12; TEMP 38.1; O2SAT 96
--- NOTE | 2022-10-01 22:03 | ECG_ITS ---
Test Reason : REPEAT Blood Pressure : / mmHG Vent. Rate : 085 BPM Atrial Rate : 085 BPM P-R Int : 158 ms QRS Dur : 094 ms QT Int : 368 ms P-R-T Axes : 070 032 123 degrees QTc Int : 437 ms Sinus rhythm with frequent Premature ventricular complexes Possible Left atrial enlargement Left ventricular hypertrophy with repolarization abnormality ( Sokolow-Lopez ) Abnormal ECG When compared with ECG of 01-OCT-2022 17:02, Premature ventricular complexes are now Present Referred By: Kurtis Rojas Electronically Signed By:ELIZABETH SLOAN
--- NOTE | 2022-10-01 22:03 | ED.CHESTPAIN ---
HPI - Chest Pain General Chief Complaint: Chest Pain Stated Complaint: Chest pain/Dizziness Time Seen by Provider: 10/01/22 21:35 Source: patient Mode of arrival: ambulatory Limitations: no limitations History of Present Illness HPI narrative: Patient with history of stent placement 3 years ago had a stress test about 5 months ago which was negative and had Holter monitoring for frequent PVCs. Came here as he had left-sided chest pain started about 45 minutes prior to arrival by the time patient reach hospital pain was gone also patient complained of dizziness which was nonspecific. No chest pain at time of evaluation. Patient at 2 sets of cardiac enzyme which was negative EKG without any ischemic changes chest pain was pressure-like feeling in the left side of the chest lasted for about 45 minutes no diaphoresis no nausea no vomiting no palpitation Related Data Previous Rx's Medication Instructions Recorded cefuroxime axetil 250 mg tablet 250 mg PO BID 7 days #14 tabs 10/02/22 Allergies Allergy/AdvReac Type Severity Reaction Status Date / Time No Known Allergies Allergy Verified 10/01/22 17:17 Review of Systems Review of Systems: Yes all other systems are reviewed and are negative [facility] Social History Social History Advance Directives: No Advance Directives Information Provided: No Physical Exam Vital Signs: Vital Signs: Last Vital Signs Temp 101.7 F H 10/02/22 00:30 Pulse 86 10/01/22 23:50 Resp 15 10/01/22 23:50 BP 148/72 H 10/01/22 23:50 Pulse Ox 95 10/01/22 23:50 O2 Del Method Room Air 10/01/22 23:50 BMI result Body Mass Index 19.1 Appearance: Alert. Oriented X3. No acute distress. Eyes: No pallor or icterus ENT: Pharynx normal. Oral Mucosa moist Neck: Normal inspection. Neck supple. CVS: Normal heart rate and rhythm. Pulses normal. Respiratory: No respiratory distress. Equal air entry bilateral, no wheezing/rales/rhonchi Abdomen: Soft and nontender. Bowel sounds are present, no mass palpable, no CVA tenderness rectal: Nontender prostate normal size Skin: Skin warm and dry. Normal skin color. Normal skin turgor. Extremities: No lower extremity edema. No calf tenderness Neuro: Oriented X 3. Right arm in contracted posture No sensory deficit. Medications Administered Discontinued Medications Generic Name Dose Route Start Last Admin Trade Name Kathy PRN Reason Stop Dose Admin Cefuroxime Axetil 250 mg 10/01/22 23:35 10/01/22 23:48 Cefuroxime Axetil 250 Mg Tablet PO 10/01/22 23:36 250 mg ONCE ONE Administration Tramadol HCl 50 mg 10/01/22 23:45 10/01/22 23:48 Tramadol Hcl 50 Mg Tablet PO 10/01/22 23:46 50 mg ONCE ONE Administration Medical Decision Making Medical Decision Making [facility] Narrative: Patient's chest pain which lasted for about 45 minutes EKG without any ischemic change the 2 sets of cardiac enzymes negative patient did not have any chest pain since he had the stent placed 3 years ago will check the 3rd cardiac enzymes just to be sure to rule out ACS patient urine showed wbc's and leuko esterase positive with 4+ bacteria although patient is symptomatic will keep him Ceftin Third set of troponin I also without any significant delta change discharge patient home advised follow up with tax associate patient had aspirin which he took today Patient spiked temperature after arriving to the ER to 101.7 workup showed only UTI no signs of prostatitis labs are stable will give a dose of IV Rocephin Lab Data [facility] Lab Attestation statement: I reviewed the patient's lab results. 10/01/22 17:46 10/01/22 17:46 Labs: Lab Results 10/01/22 10/01/22 10/01/22 Range/Units 17:46 17:46 17:46 WBC 6.6 (4.8-10.8) X10*3/uL RBC 4.20 L D (4.60-5.80) X10*6/uL Hgb 12.7 L (14.0-18.0) g/dl Hct 37.7 L (42.0-52.0) % MCV 89.8 (80.0-98.0) fL MCH 30.2 (27.0-33.0) pg MCHC 33.7 (31.0-36.0) g/dl RDW 13.8 (11.0-16.0) % Plt Count 212 (160-400) X10*3/uL MPV 11.2 (9.4-12.4) fL Immature Gran % (Auto) 0.2 (0.0-0.4) % Neut % (Auto) 84.1 H (45-73) % Lymph % (Auto) 8.7 L (20-40) % [place] % (Auto) 3.9 (2-11) % Eos % (Auto) 2.9 (0-4) % Baso % (Auto) 0.2 (0-2) % Lymph # (Auto) 0.6 L (1.2-4.9) X10*3/uL [place] # (Auto) 0.3 (0.1-1.2) X10*3/uL Eos # (Auto) 0.2 (0.0-0.4) X10*3/uL Baso # (Auto) 0.0 (0.0-0.2) X10*3/uL Abs Immat Gran (auto) 0.01 (0.00-0.03) X10*3/uL Absolute Neuts (auto) 5.6 (2.0-8.3) x10*3/uL Absolute Nucleated RBC 0.000 (0.0-0.012) X10*3/uL Nucleated RBC % (auto) 0.0 (0.0-0.2) /100WBC PT 11.8 (10.0-13.1) SEC INR 1.0 (0.9-1.1) APTT 28.4 (26.0-36.4) SEC Sodium 139 (135-145) mmol/L Potassium 3.8 (3.3-5.1) mmol/L Chloride 104 (96-108) mmol/L Carbon Dioxide 24 (22-29) mmol/L Anion Gap 15 (12-20) BUN 13 (9-16) mg/dL Creatinine 1.16 (0.5-1.4) mg/dL Estim Creat Clear Calc 44.0 Estimated GFR > 60 Random Glucose 215 H (60-115) mg/dL Calcium 9.7 D (8.4-10.2) mg/dL Total Bilirubin 1.5 H (0.0-1.0) mg/dL AST 16 (5-37) U/L ALT 20 (0-40) U/L Alkaline Phosphatase 92 (39-117) U/L Troponin I High Sens (<3.5-35.0) ng/L Total Protein 7.8 (6.5-8.0) g/dL Albumin 4.1 (3.5-5.0) g/dL Lipase 36 (8-78) U/L Urine Color Urine Appearance Urine pH (5.0-9.0) Ur Specific [place] (1.005-1.025) Urine Protein (Neg-Trace) mg/dL Urine Glucose (UA) (Negative) mg/dL Urine Ketones (Negative) mg/dL Urine Blood (Negative) Urine Nitrite (Negative) Ur Leukocyte Esterase (Negative) Urine RBC (0-2) /HPF Urine WBC (0-5) /HPF Ur Squamous Epith Cells (0-2) /HPF Urine Bacteria (None Seen) Hyaline Casts (0-2) /LPF COVID-19 (CHARLES) (Negative) COVID-19 Clin Com 10/01/22 10/01/22 10/01/22 Range/Units 17:46 20:59 21:00 WBC (4.8-10.8) X10*3/uL RBC (4.60-5.80) X10*6/uL Hgb (14.0-18.0) g/dl Hct (42.0-52.0) % MCV (80.0-98.0) fL MCH (27.0-33.0) pg MCHC (31.0-36.0) g/dl RDW (11.0-16.0) % Plt Count (160-400) X10*3/uL MPV (9.4-12.4) fL Immature Gran % (Auto) (0.0-0.4) % Neut % (Auto) (45-73) % Lymph % (Auto) (20-40) % [place] % (Auto) (2-11) % Eos % (Auto) (0-4) % Baso % (Auto) (0-2) % Lymph # (Auto) (1.2-4.9) X10*3/uL [place] # (Auto) (0.1-1.2) X10*3/uL Eos # (Auto) (0.0-0.4) X10*3/uL Baso # (Auto) (0.0-0.2) X10*3/uL Abs Immat Gran (auto) (0.00-0.03) X10*3/uL Absolute Neuts (auto) (2.0-8.3) x10*3/uL Absolute Nucleated RBC (0.0-0.012) X10*3/uL Nucleated RBC % (auto) (0.0-0.2) /100WBC PT (10.0-13.1) SEC INR (0.9-1.1) APTT (26.0-36.4) SEC Sodium (135-145) mmol/L Potassium (3.3-5.1) mmol/L Chloride (96-108) mmol/L Carbon Dioxide (22-29) mmol/L Anion Gap (12-20) BUN (9-16) mg/dL Creatinine (0.5-1.4) mg/dL Estim Creat Clear Calc Estimated GFR Random Glucose (60-115) mg/dL Calcium (8.4-10.2) mg/dL Total Bilirubin (0.0-1.0) mg/dL AST (5-37) U/L ALT (0-40) U/L Alkaline Phosphatase (39-117) U/L Troponin I High Sens 4.4 6.8 D (<3.5-35.0) ng/L Total Protein (6.5-8.0) g/dL Albumin (3.5-5.0) g/dL Lipase (8-78) U/L Urine Color Urine Appearance Urine pH (5.0-9.0) Ur Specific [place] (1.005-1.025) Urine Protein (Neg-Trace) mg/dL Urine Glucose (UA) (Negative) mg/dL Urine Ketones (Negative) mg/dL Urine Blood (Negative) Urine Nitrite (Negative) Ur Leukocyte Esterase (Negative) Urine RBC (0-2) /HPF Urine WBC (0-5) /HPF Ur Squamous Epith Cells (0-2) /HPF Urine Bacteria (None Seen) Hyaline Casts (0-2) /LPF COVID-19 (CHARLES) Negative (Negative) COVID-19 Clin Com See Note 10/01/22 10/02/22 Range/Units 21:03 00:04 WBC (4.8-10.8) X10*3/uL RBC (4.60-5.80) X10*6/uL Hgb (14.0-18.0) g/dl Hct (42.0-52.0) % MCV (80.0-98.0) fL MCH (27.0-33.0) pg MCHC (31.0-36.0) g/dl RDW (11.0-16.0) % Plt Count (160-400) X10*3/uL MPV (9.4-12.4) fL Immature Gran % (Auto) (0.0-0.4) % Neut % (Auto) (45-73) % Lymph % (Auto) (20-40) % [place] % (Auto) (2-11) % Eos % (Auto) (0-4) % Baso % (Auto) (0-2) % Lymph # (Auto) (1.2-4.9) X10*3/uL [place] # (Auto) (0.1-1.2) X10*3/uL Eos # (Auto) (0.0-0.4) X10*3/uL Baso # (Auto) (0.0-0.2) X10*3/uL Abs Immat Gran (auto) (0.00-0.03) X10*3/uL Absolute Neuts (auto) (2.0-8.3) x10*3/uL Absolute Nucleated RBC (0.0-0.012) X10*3/uL Nucleated RBC % (auto) (0.0-0.2) /100WBC PT (10.0-13.1) SEC INR (0.9-1.1) APTT (26.0-36.4) SEC Sodium (135-145) mmol/L Potassium (3.3-5.1) mmol/L Chloride (96-108) mmol/L Carbon Dioxide (22-29) mmol/L Anion Gap (12-20) BUN (9-16) mg/dL Creatinine (0.5-1.4) mg/dL Estim Creat Clear Calc Estimated GFR Random Glucose (60-115) mg/dL Calcium (8.4-10.2) mg/dL Total Bilirubin (0.0-1.0) mg/dL AST (5-37) U/L ALT (0-40) U/L Alkaline Phosphatase (39-117) U/L Troponin I High Sens 7.8 (<3.5-35.0) ng/L Total Protein (6.5-8.0) g/dL Albumin (3.5-5.0) g/dL Lipase (8-78) U/L Urine Color Yellow Urine Appearance Clear Urine pH 6.0 (5.0-9.0) Ur Specific [place] 1.015 (1.005-1.025) Urine Protein 30 (1+) H (Neg-Trace) mg/dL Urine Glucose (UA) Negative (Negative) mg/dL Urine Ketones Negative (Negative) mg/dL Urine Blood Negative (Negative) Urine Nitrite Negative (Negative) Ur Leukocyte Esterase Moderate (2+) H (Negative) Urine RBC 0-2 (0-2) /HPF Urine WBC >50 H (0-5) /HPF Ur Squamous Epith Cells 0-2 (0-2) /HPF Urine Bacteria 4+ (None Seen) Hyaline Casts 0-2 (0-2) /LPF COVID-19 ([facility]) (Negative) COVID-19 Clin Com Independent Interpretation I performed an independent interpretation of an: EKG Interpretation: Normal sinus rhythm heart rate 85 beats per minute unifocal PVCs LVH no acute ST T wave changes no acute ischemia Discharge Plan Discharge Clinical Impression: Chest pain, Acute UTI Patient Disposition: Home, Self-Care Instructions: Chest Pain (ED), Urinary Tract Infection in Men (ED) Additional Instructions: Continue taking medication as prescribed by your PCP Antibiotic as advised for UTI Drink plenty of fluids Follow-up with PCP/tax associate for further evaluation Contin?e tomando los medicamentos seg?n lo prescrito por olivo PCP Antibi?vishnu seg?n lo recomendado para UTI Beber mucho l?quido Seguimiento con PCP/cardi?logo para evaluaci?n adicional Prescriptions: New cefuroxime axetil 250 mg tablet 250 mg PO BID 7 Days Qty: 14 0RF Print Language: French
[2022-10-01] MEDS: traMADoL HCL 50 MG TABLET PO (23:48)
[2022-10-01 23:50] VITALS: BP 148/72; PULSE 86; RESP 15; O2SAT 95
[2022-10-02 00:30] VITALS: TEMP 38.7
[2022-10-02 00:30] LABS: Troponin-I High Sensitivity 7.8 ng/L (<3.5-35.0)
[2022-10-02] MEDS: Acetaminophen 325 MG TABLET 650 MG PO (01:01)
[2022-10-02] MEDS: cefTRIAXone sodium 1 GM in 0.9 % Sodium Chloride 50 ML IV (01:01)
--- NOTE | 2022-10-02 01:09 | PC.NURSE ---
pt receiving iv rocephin for uti causing fevers. pt fever from 100.6 to 101.7. tylenol po administered. pt resting comfortably on stretcher. will D/C home after abx administration. sustainable systems analyst utilized and pt and son aware of plan.
== END 2022-10-02 01:31 | disposition home or self-care (01) ==
PROVIDERS: Physician Assistant; Emergency Provider Internal Medicine; PCP Pediatrics
DX: R07.89 Other chest pain (principal); N39.0 Urinary tract infection, site not specified; Z79.899 Other long term (current) drug therapy; Z20.822 Contact with and (suspected) exposure to COVID-19; Z20.828 Contact with and (suspected) exposure to other viral communicable diseases
CPT/HCPCS: 36415; 71046; 80053; 81001; 83690; 84484; 85025; 85610; 85730; 87086; 87088; 87186; 87635; 93005; 96365; 99284; 99285; J0696

== ENCOUNTER 2022-11-04 11:30 | Outpatient (RCR) | payer OTHER, SELFPAY | END 2022-11-04 14:15 | disposition home or self-care (01) | LOC: HO.OT 11:30 | PROVIDERS: PCP Pediatrics; Visit Provider Pediatrics | DX: I63.9 Cerebral infarction, unspecified (principal) | CPT/HCPCS: 97110; 97112; 97167; 97530 ==

== ENCOUNTER 2022-11-08 19:42 | Emergency (ER) | payer OTHER, SELFPAY ==
--- NOTE | ~2022-11-08 | XR_ITS ---
EXAMINATION: XR chest 2V CLINICAL INFORMATION: Reason for Exam chest pain COMPARISON: Prior chest x-ray 10/01/2022 TECHNIQUE: XR chest 2V Lungs and Dina: Hyperinflated lungs with flattening of the left hemidiaphragm suggesting air trapping disease COPD. Density projecting over the right parahilar region could be a lung nodule unchanged. This could be evaluated further with follow-up low-dose chest CT. Pleura: Normal. Costophrenic angles are sharp. No pneumothorax. Heart: The heart is normal in size. Mediastinum: The mediastinum is within normal limits.. Bones: Skeletal structures included are normal for patient's age. XR/XR chest 2V IMPRESSION: * Hyperinflated lungs suggesting air trapping disease COPD. * Redemonstration of Density projecting over the right parahilar region could be a lung nodule versus vascular unchanged. Consider follow-up further evaluation with low-dose chest CT.
--- NOTE | 2022-11-08 19:44 | ECG_ITS ---
Test Reason : chest pain Blood Pressure : / mmHG Vent. Rate : 062 BPM Atrial Rate : 062 BPM P-R Int : 162 ms QRS Dur : 096 ms QT Int : 428 ms P-R-T Axes : 080 014 086 degrees QTc Int : 434 ms Normal sinus rhythm Left ventricular hypertrophy with repolarization abnormality ( Sokolow-Lopez ) Inferior infarct , age undetermined Abnormal ECG When compared with ECG of 01-OCT-2022 22:17, Premature ventricular complexes are no longer Present Nonspecific T wave abnormality no longer evident in Inferior leads Referred By: Juliana Mcfarlane Electronically Signed By:KARY STAFFORD MD
[2022-11-08 19:50] VITALS: BP 159/70; PULSE 66; RESP 18; TEMP 36.2; O2SAT 99; BMI 20.1
--- NOTE | 2022-11-08 19:50 | ED.GENADULT ---
HPI - General Adult General Chief complaint: Chest Pain Stated complaint: chest pain Time Seen by Provider: 11/08/22 22:30 Source: patient and family Mode of arrival: EMS Limitations: language barrier ( Cymraes-speaking district medical examiner utilized) History of Present Illness HPI narrative: patient is a 81-year-old male presents emergency department for evaluation of left anterior chest pain. He reports onset of pain at 1930 while at rest, Unable to describe quality of pain, lasted approximately 2.5 hours before self-resolving. vague report of generalized weakness today, intermittent dizziness at baseline. Currently denying any headache, vision changes, neck pain, shortness of breath, difficulty breathing, nausea, vomiting, abdominal pain, numbness or tingling of the extremities, fevers, chills. Patient has already taken asked Related Data Previous Rx's Medication Instructions Recorded cefuroxime axetil 250 mg tablet 250 mg PO BID 7 days #14 tabs 10/02/22 Allergies Allergy/AdvReac Type Severity Reaction Status Date / Time No Known Allergies Allergy Verified 11/08/22 19:57 Review of Systems Review of Systems: Constitutional : No Weight loss, No Fever, No Chills ENT/Mouth :? No sore throat, No Rhinorrhea Eyes: No Eye Pain, No Swelling Cardiovascular : pos Chest Pain, no SOB, no Dyspnea on Exertion, No Orthopnea, No Edema, No Palpitations Respiratory : No Cough, No Sputum Gastrointestinal : no Nausea, No Vomiting, No Diarrhea, No abdominal Pain, No Hematochezia, No Melena Genitourinary : No Dysuria, No Urinary Frequency Musculoskeletal : No joint pain, No Myalgias, No Joint Swelling Skin : No Skin Lesions, No rash Neuro : No Weakness, No Numbness, No Dizziness, No Headache Psych : No Anxiety/Panic, No Depression Heme/Lymph: No Bruising, No Lymphadenopathy Endocrine : No Polyuria, No Polydipsia Yes all other systems are reviewed and are negative [facility] Past Medical History Attestation statement: The following information was validated with the patient. Source: old records reviewed Social History Social History Advance Directives: No Advance Directives Information Provided: Yes Physical Exam ED Vital Signs: Vital Signs - 24 hr 11/08/22 19:50 11/08/22 22:53 11/08/22 23:32 Temperature 97.2 F 98.4 F 97.8 F Pulse Rate 66 58 60 Respiratory Rate 18 12 15 Blood Pressure 159/70 H 155/70 H 149/70 H Pulse Oximetry 99 97 98 Oxygen Delivery Method Room Air Room Air Room Air BMI result Body Mass Index 20.1 Appearance: Alert.?Oriented to person, place and time. No acute distress.?Normal affect. Eyes: Pupils equal, round and reactive to light.? ENT: Pharynx normal.?? Neck: Normal inspection.? Neck supple.?? CVS: Heart sounds normal. Normal heart rate and rhythm.? Pulses normal.?? Respiratory: No respiratory distress.? Lung sounds clear to auscultation bilaterally?? Abdomen: Soft and non-tender. Normoactive bowel sounds. ?? Skin: Skin warm and dry.? Normal skin color.? Extremities: No lower extremity edema.? No calf ttp? Neuro: Moves all extremities spontaneously. Sensation intact bilaterally. CN II-XII intact. No focal neuro deficits. Ambulates with normal steady gait. Course Course Course Narrative: This is a rapid medical exam: Additional HPI, ROS, PE not included below will be deferred to primary provider. Patient is a 81-year-old male with history of HTN, CVA presenting to the emergency department with complaint of left chest pain for approximately 30 minutes as well as weakness since today. Reports dizziness at times. Denies blurred vision. Denies fevers. Plan: EKG, labs, CXR Medical Decision Making Medical Decision Making MDM Narrative: Patient is a 81-year-old male with reported past medical history of cardiac stenting 3 years ago, Hypertension, hyperlipidemia presenting to emergency department for evaluation of chest pain generalized weakness as per HPI. At this time he is asymptomatic. Upon review of medical record patient had a similar presentation to the emergency department September of 2022; ACS rule out with no significant delta change to troponin and he was discharged home advised outpatient follow-up with his project administrator. PERC Negative, unlikely pulmonary embolism. chest x-rays without evidence of acute cardiopulmonary abnormality, No pneumonia or pneumothorax.. reviewed serum labs obtained from rapid medical examination provider, no leukocytosis, baseline normocytic anemia, overall unremarkable CMP. Initial troponin 3.0, EKG revealing normal sinus rhythm with LVH, ventricular rate of 62, QTC 434, no ST elevation, ST depression, T-wave inversions in V5 - V6 which is seen on prior EKG. Delta troponin negative; 2.7, at this time low suspicion for ACS. at this time feel the patient stable for discharge home family, reviewed worrisome signs and symptoms that would warrant re-evaluation in the emergency department, advised outpatient follow-up with PCP/ Cardiology. Differential Diagnosis Differential Diagnoses: The differential diagnosis associated with the presentation includes Admission/Observation Consideration of admission/observation: Escalation of care including admission/observation considered ( I considered admission for chest pain, see narrative above for further detail) Lab Data MDM Lab Attestation statement: I reviewed the patient's lab results. ( as noted above) 11/08/22 20:06 11/08/22 20:07 Labs: Lab Results 11/08/22 11/08/22 11/08/22 Range/Units 20:06 20:06 20:07 WBC 5.9 (4.8-10.8) X10*3/uL RBC 3.97 L (4.60-5.80) X10*6/uL Hgb 12.1 L (14.0-18.0) g/dl Hct 36.3 L (42.0-52.0) % MCV 91.4 (80.0-98.0) fL MCH 30.5 (27.0-33.0) pg MCHC 33.3 (31.0-36.0) g/dl RDW 14.6 (11.0-16.0) % Plt Count 206 (160-400) X10*3/uL MPV 10.9 (9.4-12.4) fL Immature Gran % (Auto) 0.3 (0.0-0.4) % Neut % (Auto) 48.9 (45-73) % Lymph % (Auto) 33.1 (20-40) % [place] % (Auto) 8.0 (2-11) % Eos % (Auto) 9.4 H (0-4) % Baso % (Auto) 0.3 (0-2) % Lymph # (Auto) 1.9 (1.2-4.9) X10*3/uL [place] # (Auto) 0.5 (0.1-1.2) X10*3/uL Eos # (Auto) 0.6 H (0.0-0.4) X10*3/uL Baso # (Auto) 0.0 (0.0-0.2) X10*3/uL Abs Immat Gran (auto) 0.02 (0.00-0.03) X10*3/uL Absolute Neuts (auto) 2.9 (2.0-8.3) x10*3/uL Absolute Nucleated RBC 0.000 (0.0-0.012) X10*3/uL Nucleated RBC % (auto) 0.0 (0.0-0.2) /100WBC Sodium 137 (135-145) mmol/L Potassium 3.6 (3.3-5.1) mmol/L Chloride 105 (96-108) mmol/L Carbon Dioxide 22 (22-29) mmol/L Anion Gap 14 (12-20) BUN 14 (9-16) mg/dL Creatinine 1.16 (0.5-1.4) mg/dL Estim Creat Clear Calc 44.9 Estimated GFR > 60 Random Glucose 131 H (60-115) mg/dL Calcium 9.2 (8.4-10.2) mg/dL Total Bilirubin 1.1 H (0.0-1.0) mg/dL AST 27 (5-37) U/L ALT 38 (0-40) U/L Alkaline Phosphatase 89 (39-117) U/L Troponin I High Sens 3.0 D (<3.5-35.0) ng/L Total Protein 7.9 (6.5-8.0) g/dL Albumin 4.3 (3.5-5.0) g/dL Urine Color Urine Appearance Urine pH (5.0-9.0) Ur Specific [place] (1.005-1.025) Urine Protein (Neg-Trace) mg/dL Urine Glucose (UA) (Negative) mg/dL Urine Ketones (Negative) mg/dL Urine Blood (Negative) Urine Nitrite (Negative) Ur Leukocyte Esterase (Negative) Urine RBC (0-2) /HPF Urine WBC (0-5) /HPF Ur Squamous Epith Cells (0-2) /HPF Urine Bacteria (None Seen) Hyaline Casts (0-2) /LPF 11/09/22 11/09/22 Range/Units 00:07 00:07 WBC (4.8-10.8) X10*3/uL RBC (4.60-5.80) X10*6/uL Hgb (14.0-18.0) g/dl Hct (42.0-52.0) % MCV (80.0-98.0) fL MCH (27.0-33.0) pg MCHC (31.0-36.0) g/dl RDW (11.0-16.0) % Plt Count (160-400) X10*3/uL MPV (9.4-12.4) fL Immature Gran % (Auto) (0.0-0.4) % Neut % (Auto) (45-73) % Lymph % (Auto) (20-40) % [place] % (Auto) (2-11) % Eos % (Auto) (0-4) % Baso % (Auto) (0-2) % Lymph # (Auto) (1.2-4.9) X10*3/uL [place] # (Auto) (0.1-1.2) X10*3/uL Eos # (Auto) (0.0-0.4) X10*3/uL Baso # (Auto) (0.0-0.2) X10*3/uL Abs Immat Gran (auto) (0.00-0.03) X10*3/uL Absolute Neuts (auto) (2.0-8.3) x10*3/uL Absolute Nucleated RBC (0.0-0.012) X10*3/uL Nucleated RBC % (auto) (0.0-0.2) /100WBC Sodium (135-145) mmol/L Potassium (3.3-5.1) mmol/L Chloride (96-108) mmol/L Carbon Dioxide (22-29) mmol/L Anion Gap (12-20) BUN (9-16) mg/dL Creatinine (0.5-1.4) mg/dL Estim Creat Clear Calc Estimated GFR Random Glucose (60-115) mg/dL Calcium (8.4-10.2) mg/dL Total Bilirubin (0.0-1.0) mg/dL AST (5-37) U/L ALT (0-40) U/L Alkaline Phosphatase (39-117) U/L Troponin I High Sens 2.7 (<3.5-35.0) ng/L Total Protein (6.5-8.0) g/dL Albumin (3.5-5.0) g/dL Urine Color Yellow Urine Appearance Clear Urine pH 6.5 (5.0-9.0) Ur Specific [place] <= 1.005 (1.005-1.025) Urine Protein Negative (Neg-Trace) mg/dL Urine Glucose (UA) Negative (Negative) mg/dL Urine Ketones Negative (Negative) mg/dL Urine Blood Negative (Negative) Urine Nitrite Negative (Negative) Ur Leukocyte Esterase Small (1+) H (Negative) Urine RBC 0-2 (0-2) /HPF Urine WBC 6-10 H (0-5) /HPF Ur Squamous Epith Cells 0-2 (0-2) /HPF Urine Bacteria 4+ (None Seen) Hyaline Casts 0-2 (0-2) /LPF Independent Interpretation I performed an independent interpretation of an: Plain X-Ray (I personally interpreted chest x-ray and agree with radiologist impression, no evidence of pneumonia, pneumothorax, pulmonary congestion) Radiology Impression Discussion of test interpretation with radiology: I have reviewed the radiologist's reading. Radiologist Impression: XR/XR chest 2V IMPRESSION: ? *? Hyperinflated lungs suggesting air trapping disease COPD. ? *? Redemonstration of Density projecting over the right parahilar region could be a lung nodule versus vascular unchanged. Consider follow-up further evaluation with low-dose chest CT. ? External Record Review External record reviewed: Prior outpatient labs Prescription Management I considered prescription management with: Pain Medication ( asymptomatic, would defer any pain medication at this time.) Discharge Plan Discharge Clinical Impression: Chest pain Patient Disposition: Home, Self-Care Instructions: Chest Pain (ED) Additional Instructions: Continue taking all of your medications as prescribed. Contact your primary care provider/ project administrator for follow-up within 1-3 days. Return back to emergency department with any new or worsening symptoms or concerns. Prescriptions: No Action cefuroxime axetil 250 mg tablet 250 mg PO BID 7 Days Qty: 14 0RF Referrals: Physician,Unknown J [Primary Care Provider] - Print Language: Cymraes
[2022-11-08 20:14] LABS: MANUAL DIFF FLAG NO
[2022-11-08 20:16] LABS: Basophils Percent Auto 0.3 % (0-2); Eosinophils Absolute Auto 0.6 X10*3/uL (0.0-0.4); Eosinophils Percent Auto 9.4 % (0-4); Hematocrit 36.3 % (42.0-52.0); Hemoglobin 12.1 g/dl (14.0-18.0); Imm Gran Abs Auto 0.02 X10*3/uL (0.00-0.03); Imm Gran Pct Auto 0.3 % (0.0-0.4); Lymphocytes Absolute Auto 1.9 X10*3/uL (1.2-4.9); Lymphocytes Percent Auto 33.1 % (20-40); Mean Corpuscular HGB Conc 33.3 g/dl (31.0-36.0); Mean Corpuscular Hemoglobin 30.5 pg (27.0-33.0); Mean Corpuscular Volume 91.4 fL (80.0-98.0); Mean Platelet Volume 10.9 fL (9.4-12.4); Monocytes Absolute Auto 0.5 X10*3/uL (0.1-1.2); Neutrophils Absolute Auto 2.9 x10*3/uL (2.0-8.3); Neutrophils Percent Auto 48.9 % (45-73); Platelet Count 206 X10*3/uL (160-400); Red Blood Count 3.97 X10*6/uL (4.60-5.80); Red Cell Distribution Width 14.6 % (11.0-16.0); White Blood Count 5.9 X10*3/uL (4.8-10.8)
[2022-11-08 20:33] LABS: Alanine Aminotransferase 38 U/L (0-40); Albumin Level 4.3 g/dL (3.5-5.0); Alkaline Phosphatase 89 U/L (39-117); Anion Gap 14 (12-20); Aspartate Amino Transferase 27 U/L (5-37); Bilirubin Total 1.1 mg/dL (0.0-1.0); Blood Urea Nitrogen 14 mg/dL (9-16); Calcium 9.2 mg/dL (8.4-10.2); Carbon Dioxide 22 mmol/L (22-29); Chloride 105 mmol/L (96-108); Creatinine Clr Calc Pharmacy 44.9; Estimated Glomerular Filt Rate > 60; Glucose Random 131 mg/dL (60-115); Potassium 3.6 mmol/L (3.3-5.1); Sodium 137 mmol/L (135-145); Total Protein 7.9 g/dL (6.5-8.0)
[2022-11-08 22:53] VITALS: BP 155/70; PULSE 58; RESP 12; TEMP 36.9; O2SAT 97
[2022-11-08 22:59] VITALS: PULSE 56
[2022-11-08 23:32] VITALS: BP 149/70; PULSE 60; RESP 15; TEMP 36.6; O2SAT 98
--- NOTE | 2022-11-09 00:13 | MHC.EDTECH ---
PATIENT REPEATED TROP DRAWN AND URINE SAMPLE COLLECTED AND SENT TO LAB .
[2022-11-09 00:34] LABS: Appearance Urine Clear; Color Urine Yellow; Glucose Urine UA Negative (Negative); Leukocyte Esterase Urine Small (1+) (Negative); Nitrite Urine Negative (Negative); PH 6.5 (5.0-9.0); Specific Gravity - Urine <= 1.005 (1.005-1.025); UMIC TRIGGER UACC YES; Urine Blood Negative (Negative); Urine Ketones Negative (Negative); Urine Protein Negative (Neg-Trace)
[2022-11-09 00:35] LABS: Troponin-I High Sensitivity 2.7 ng/L (<3.5-35.0)
[2022-11-09 00:45] LABS: Bacteria Urine 4+ (None Seen); Hyaline Casts Urine 0-2 /LPF (0-2); RBC Urine 0-2 /HPF (0-2); Squamous Epithelial Cell Urine 0-2 /HPF (0-2); UACC Culture Trigger YES
[2022-11-09 01:31] VITALS: BP 148/73; PULSE 57; RESP 16; TEMP 36.3; O2SAT 98
== END 2022-11-09 02:25 | disposition home or self-care (01) ==
PROVIDERS: Nurse Practitioner Family; Registered Nurse Emergency; Emergency Provider Emergency Medicine
DX: R07.89 Other chest pain (principal); Z79.899 Other long term (current) drug therapy
CPT/HCPCS: 36415; 71046; 80053; 81001; 84484; 85025; 87086; 87088; 87186; 93005; 99283; 99285

== ENCOUNTER → 2022-11-08 19:44 | Outpatient (BNV) | payer OTHER, SELFPAY | PROVIDERS: Emergency Provider Emergency Medicine; Visit Provider Internal Medicine Cardiovascular Disease | DX: R07.9 Chest pain, unspecified (principal) | CPT/HCPCS: 93010 ==

== ENCOUNTER 2023-01-30 12:38 | Emergency (ER) | payer OTHER, SELFPAY ==
--- NOTE | ~2023-01-30 | CT_ITS ---
EXAMINATION: CT HEAD WITHOUT CONTRAST CLINICAL INFORMATION: History of stroke with residual right-sided deficits. COMPARISON: CT brain 03/28/2022 TECHNIQUE: Contiguous axial imaging was performed from the skull base to vertex without intravenous administration of contrast. This CT examination was performed using dose optimization techniques as appropriate, variously including the following: *Automated exposure control *Adjustment of mA and/or kV according to patient size (this includes techniques or standardized protocols for targeted exams where dose is matched to indication/reason for exam; i.e. extremities or head) *Use of iterative reconstruction technique DLP: 772 mGy-cm FINDINGS: There is a large area of left posterior parietal and lateral occipital lobe encephalomalacia with mild dilatation of left occipital horn lateral ventricle. There is no acute intra-axial, extra-axial bleed, collection or masses. There is mild ipsilateral shift to the left. There is no acute infarction in evolution. The chapman to white matter difference is maintained normal. Bone windows reveal no calvarial abnormality. Bilateral paranasal sinuses are well-aerated and clear. The mastoid sinuses are clear. No scalp soft tissue abnormality seen. CT/CT head/brain wo IV con IMPRESSION: 1. No acute intracranial process seen. 2. Large left posterior parietal and lateral occipital lobe encephalomalacia from old infarct.
[2023-01-30 12:49] VITALS: BP 162/75; PULSE 68; RESP 16; TEMP 37.1; O2SAT 99; BMI 22.6
--- NOTE | 2023-01-30 12:57 | ECG_ITS ---
Test Reason : DIZINESS Blood Pressure : / mmHG Vent. Rate : 068 BPM Atrial Rate : 068 BPM P-R Int : 148 ms QRS Dur : 090 ms QT Int : 416 ms P-R-T Axes : 070 007 091 degrees QTc Int : 442 ms Normal sinus rhythm Intra-ventricular conduction delay T wave abnormality, consider lateral ischemia Abnormal ECG When compared with ECG of 08-NOV-2022 20:02, No significant change was found Referred By: Annie Decker Electronically Signed By:DEREK PALUMBO MD
[2023-01-30 13:16] VITALS: BP 152/70; PULSE 64
[2023-01-30 13:18] VITALS: BP 160/75; PULSE 66
[2023-01-30 13:19] VITALS: BP 155/69; PULSE 73
[2023-01-30 13:34] LABS: MANUAL DIFF FLAG NO
[2023-01-30 13:39] LABS: Basophils Percent Auto 0.5 % (0-2); Eosinophils Absolute Auto 0.6 X10*3/uL (0.0-0.4); Eosinophils Percent Auto 6.5 % (0-4); Hemoglobin 13.4 g/dl (14.0-18.0); Imm Gran Abs Auto 0.02 X10*3/uL (0.00-0.03); Imm Gran Pct Auto 0.2 % (0.0-0.4); Lymphocytes Percent Auto 23.9 % (20-40); Mean Corpuscular HGB Conc 33.5 g/dl (31.0-36.0); Mean Corpuscular Hemoglobin 31.2 pg (27.0-33.0); Mean Platelet Volume 10.9 fL (9.4-12.4); Monocytes Absolute Auto 0.6 X10*3/uL (0.1-1.2); Monocytes Percent Auto 6.9 % (2-11); Neutrophils Absolute Auto 5.3 x10*3/uL (2.0-8.3); Platelet Count 244 X10*3/uL (160-400); Red Cell Distribution Width 13.4 % (11.0-16.0); White Blood Count 8.5 X10*3/uL (4.8-10.8)
--- NOTE | 2023-01-30 13:47 | ED.DIZZY ---
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 Patient denies any current dizziness even on lifting his head and denies any shortness of breath/chest pain/palpitations. Patient typically takes his blood pressure medication in the morning and denies any other GI or symptoms. Related Data Previous Rx's Medication Instructions Recorded cefuroxime axetil 250 mg tablet 250 mg PO BID 7 days #14 tabs 10/02/22 Allergies Allergy/AdvReac Type Severity Reaction Status Date / Time No Known Allergies Allergy Verified 11/08/22 19:57 Review of Systems Review of Systems: Pertinent positives and negatives as stated in HPI PMFSH Past Medical History Source: nursing notes reviewed Social History Social History Advance Directives: No Advance Directives Information Provided: Yes Physical Exam Vital Signs: Vital Signs: Last Vital Signs Temp 98.7 F 01/30/23 12:49 Pulse 73 01/30/23 13:19 Resp 16 01/30/23 12:49 BP 155/69 H 01/30/23 13:19 Pulse Ox 99 01/30/23 12:49 O2 Del Method Room Air 01/30/23 12:49 BMI result Body Mass Index 22.6 VITAL SIGNS: Reviewed. GENERAL: Well developed, well nourished, in no acute distress. HEAD: Normocephalic/atraumatic EYES: PERRLA, EOMI EARS: Ext canals without abnormality NOSE: Nares patent bilateral OROPHARYNX: no oral lesions noted, posterior pharynx clear NECK: Supple, no adenopathy LUNGS: Normal breath sounds. No adventitious sounds or accessory muscle use. SpO2<99> CARDIOVASCULAR: Regular rate and rhythm without noted murmurs ABDOMEN: Soft, non-tender, non-distended with bowel sounds. MUSCULOSKELETAL: No tenderness, deformities, or effusions noted on gross inspection. EXTREMITIES: No cyanosis, clubbing or edema. SKIN: Inspection of the skin reveals no rashes NEUROLOGIC: Alert and oriented x 4. Strength and sensation to light touch were grossly intact x 2, patient has known motor deficits to the right side, there is noted facial asymmetry to the right, otherwise no deficits noted on exam. Medical Decision Making Medical Decision Making [facility] Narrative: 1351: 82-year-old male with history and clinical presentation, DDX: Intracranial hemorrhage, very low clinical suspicion for additional intracranial ischemia, will evaluate for infection/anemia/electrolyte abnormalities. Patient is completely asymptomatic at present. I reviewed all investigations hematologic indices are grossly and chronically stable without leukocytosis or left shift, there is a stable normocytic anemia and no thrombocytopenia. Coagulation studies are within normal limits. Chemistry indices are grossly within normal limits without ELVIA and no electrolyte or liver enzyme abnormalities. Viral testing for COVID and influenza as well as RSV are negative. CT scan of the head without contrast does not demonstrate any intracranial hemorrhage and no acute changes from prior imaging studies. It is my interpretation that patient did have a transient episode of dizziness that may have been multifactorial a combination of high blood pressure as well as not having eaten breakfast. Blood pressure has significantly improved and I discussed with the family that it might be worthwhile to adjust patient's blood pressure medication cell that he does not wake up with a high blood pressure. Patient continues to be asymptomatic, alert and is otherwise discharged home. Differential Diagnosis Differential Diagnoses: The differential diagnosis associated with the presentation includes Please see the discussion above Admission/Observation Consideration of admission/observation: Escalation of care including admission/observation considered Please see the discussion above Lab Data [facility] Lab Attestation statement: I reviewed the patient's lab results. Please see the discussion above 01/30/23 13:29 01/30/23 13:29 Labs: Lab Results 01/30/23 Range/Units 13:29 WBC 8.5 (4.8-10.8) X10*3/uL RBC 4.30 L (4.60-5.80) X10*6/uL Hgb 13.4 L (14.0-18.0) g/dl Hct 40.0 L (42.0-52.0) % MCV 93.0 (80.0-98.0) fL MCH 31.2 (27.0-33.0) pg MCHC 33.5 (31.0-36.0) g/dl RDW 13.4 (11.0-16.0) % Plt Count 244 (160-400) X10*3/uL MPV 10.9 (9.4-12.4) fL Immature Gran % (Auto) 0.2 (0.0-0.4) % Neut % (Auto) 62.0 (45-73) % Lymph % (Auto) 23.9 (20-40) % [place] % (Auto) 6.9 (2-11) % Eos % (Auto) 6.5 H (0-4) % Baso % (Auto) 0.5 (0-2) % Lymph # (Auto) 2.0 (1.2-4.9) X10*3/uL [place] # (Auto) 0.6 (0.1-1.2) X10*3/uL Eos # (Auto) 0.6 H (0.0-0.4) X10*3/uL Baso # (Auto) 0.0 (0.0-0.2) X10*3/uL Abs Immat Gran (auto) 0.02 (0.00-0.03) X10*3/uL Absolute Neuts (auto) 5.3 (2.0-8.3) x10*3/uL Absolute Nucleated RBC 0.000 (0.0-0.012) X10*3/uL Nucleated RBC % (auto) 0.0 (0.0-0.2) /100WBC PT 11.1 (11.1-13.3) SEC INR 0.9 (0.9-1.1) APTT 30.4 (26.0-36.4) SEC Sodium 139 (135-145) mmol/L Potassium 4.1 (3.3-5.1) mmol/L Chloride 107 (96-108) mmol/L Carbon Dioxide 24 (22-29) mmol/L Anion Gap 12 (12-20) BUN 14 (9-16) mg/dL Creatinine 0.92 (0.5-1.4) mg/dL Estim Creat Clear Calc 59.4 Estimated GFR > 60 Random Glucose 104 (60-115) mg/dL Calcium 10.1 D (8.4-10.2) mg/dL Magnesium 2.2 (1.6-2.6) mg/dL Total Bilirubin 0.9 (0.0-1.0) mg/dL AST 22 (5-37) U/L ALT 31 (0-40) U/L Alkaline Phosphatase 98 (39-117) U/L Troponin I High Sens 3.0 (<3.5-35.0) ng/L Total Protein 8.4 H (6.5-8.0) g/dL Albumin 4.6 (3.5-5.0) g/dL Influenza Type A (PCR) NEGATIVE (Negative) Influenza Type B (PCR) NEGATIVE (Negative) RSV RNA Qual (PCR) NEGATIVE (Negative) SARS-CoV-2 RNA (RT-PCR) NEGATIVE (Negative) Independent Interpretation I performed an independent interpretation of an: EKG Interpretation: Normal sinus rhythm, HR-68, no STEMI, WI/QRS/QTC is within normal limits, there are chronically stable ST-T abnormalities in the lateral leads. Radiology Impression Discussion of test interpretation with radiology: I have reviewed the radiologist's reading. Radiologist Impression: Please see the discussion above External Record Review External record reviewed: Outpatient record, Prior outpatient labs and Prior outpatient radiology Chronic Conditions Patient?s care impacted by: Diabetes and Hypertension Critical Care Time Critical Care Time Critical Care Time: Yes Total Critical Care Time: 30 Attestation: I personally attest to this time spent taking care of the patient. Discharge Plan Discharge Clinical Impression: Dizziness, Hypertension Patient Disposition: Home, Self-Care Instructions: Hypertension (ED), Lightheadedness (ED) Additional Instructions: 1. Reanudar todos los medicamentos caseros seg?n lo recetado. Le recomiendo encarecidamente que hable sobre c?mo cambiar el horario de los medicamentos para la presi?n arterial para no despertarse con presi?n arterial palak. 2. Declan un seguimiento con olivo proveedor de atenci?n primaria llamando al consultorio a primera hora de la ma?karyna y programando javy tiffanie para javy reevaluaci?n. Regrese a la dulce maria de emergencias si los s?ntomas empeoran. 1. Resume all home medications as prescribed. I highly recommend that you discuss changing the blood pressure medication timing so that you do not wake up with high blood pressure. 2. Follow-up with your primary care provider by calling the office 1st thing in the morning and setting up an appointment for re-evaluation. Return to the ER for any worsening symptoms. Prescriptions: No Action cefuroxime axetil 250 mg tablet 250 mg PO BID 7 Days Qty: 14 0RF Referrals: Maria Luisa Briseno MD [Primary Care Provider] - Print Language: Namibian
[2023-01-30 13:55] LABS: Alanine Aminotransferase 31 U/L (0-40); Albumin Level 4.6 g/dL (3.5-5.0); Alkaline Phosphatase 98 U/L (39-117); Anion Gap 12 (12-20); Aspartate Amino Transferase 22 U/L (5-37); Bilirubin Total 0.9 mg/dL (0.0-1.0); Blood Urea Nitrogen 14 mg/dL (9-16); Calcium 10.1 mg/dL (8.4-10.2); Carbon Dioxide 24 mmol/L (22-29); Chloride 107 mmol/L (96-108); Creatinine Clr Calc Pharmacy 59.4; Estimated Glomerular Filt Rate > 60; Glucose Random 104 mg/dL (60-115); Magnesium 2.2 mg/dL (1.6-2.6); Potassium 4.1 mmol/L (3.3-5.1); Sodium 139 mmol/L (135-145); Total Protein 8.4 g/dL (6.5-8.0)
[2023-01-30 14:15] LABS: INTERNATIONAL NORM RATIO 0.9 (0.9-1.1); Prothrombin Time 11.1 SEC (11.1-13.3)
[2023-01-30 14:16] LABS: Influenza A PCR NEGATIVE (Negative); Influenza B PCR NEGATIVE (Negative); Resp Syncy Virus RNA Qual PCR NEGATIVE (Negative); SARS COV2 PCR INHOUSE NEGATIVE (Negative)
[2023-01-30 14:17] LABS: Partial Thromboplastin Time 30.4 SEC (26.0-36.4)
[2023-01-30 16:40] VITALS: BP 152/75; PULSE 71; RESP 16; O2SAT 97
== END 2023-01-30 16:50 | disposition home or self-care (01) ==
PROVIDERS: Physician Assistant Medical; Emergency Provider Student in an Organized Health Care Education/Training Program; PCP Pediatrics
DX: R42 Dizziness and giddiness (principal); I10 Essential (primary) hypertension; E11.9 Type 2 diabetes mellitus without complications; I69.351 Hemiplegia and hemiparesis following cerebral infarction affecting right dominant side; I69.398 Other sequelae of cerebral infarction; G93.89 Other specified disorders of brain; D64.9 Anemia, unspecified; Z20.822 Contact with and (suspected) exposure to COVID-19; Z20.828 Contact with and (suspected) exposure to other viral communicable diseases; Z79.899 Other long term (current) drug therapy
CPT/HCPCS: 0241U; 70450; 80053; 83735; 84484; 85025; 85610; 85730; 93005; 99284

== ENCOUNTER 2023-03-24 14:01 | Outpatient (AMB) | payer OTHER, SELFPAY ==
--- NOTE | 2023-03-24 14:03 | A.OFFVIS_ITS ---
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 Somewhat of a history. It seems that he underwent PCI in [place] about 3-4 years ago and they really do not know what happened. No information available. In March 2022, he had a left MCA stroke and that context, echocardiogram was performed and that showed a symmetric septal hypertrophy. It seems that he came to [place] for some the transferred to [facility] and eventually discharged home. He is a [employer] once but then would like to switch to [place]. Overall, he states he feels fine. No cardiac symptoms. He still has some right arm weakness and keeping his arm resting on his thigh. Son is also here for the appointment. [facility] Medical History (Updated 03/24/23 @ 14:27 by Waqas Real MD) Atherosclerotic cardiovascular disease Essential hypertension Stroke Surgical History (Updated 03/24/23 @ 14:07 by Nena Seals) Hx of cardiac catheterization Family History (Updated 03/24/23 @ 14:08 by Nena Seals) Mother No problems noted. Father Heart problem Social History (Updated 03/24/23 @ 14:08 by Nena Seals) Alcohol intake: never Patient Tobacco Use Status: Never used Tobacco Review of Systems Const All systems reviewed & are unremarkable except as noted in HPI and below Reports as per HPI and Reports no additional complaints Eyes Reports as per HPI and Denies no additional complaints ENT Denies no additional complaints and Reports as per HPI Card Reports as per HPI, Reports no additional complaints, Denies acrocyanosis, Denies chest pain, Denies leg edema, Denies lightheadedness, Denies palpitations and Denies dyspnea Resp Reports as per HPI, Denies no additional complaints and Denies dyspnea GI Reports as per HPI and Denies no additional complaints Reports no additional complaints and Reports as per HPI Musc Reports no additional complaints and Reports as per HPI Skin/Breast Reports system reviewed and no additional complaints, except as documented Neuro Reports no additional complaints and Reports as per HPI Psych Reports no additional complaints and Reports as per HPI Endo Reports no additional complaints, Reports as per HPI and Denies palpitations Codey/Lymph Reports no additional complaints and Reports as per HPI Aller/Immun Reports no additional complaints and Reports as per HPI Physical Exam Vital Signs: Last Vital Signs Pulse 69 03/24/23 14:05 BP 150/66 H 03/24/23 14:05 BMI result Body Mass Index 23.5 Const General: comfortable and no acute distress Orientation/consciousness: patient oriented x3 HEENT Other: Unremarkable Head: Yes normal to inspection Neck Neck: Yes normal visual inspection Chest Chest palpation & inspection: normal inspection of the chest Resp Auscultation: clear to auscultation bilaterally Cardio Palpation: normal PMI Heart sounds: S1 normal heart sound present, S2 normal heart sound present, no gallops, no murmurs and no rubs GI Palpation (GI): Soft to palpation Back/Spine/Pelvis Other: unremarkable Skin General skin exam: no rashes or lesions noted Neuro General: patient oriented x3 Extrem General: Yes normal to inspection Psych Mental Status: mental status grossly normal Assessment & Plan Assessment & Plan (1) Asymmetric septal hypertrophy: Code(s): I42.2 - Other hypertrophic cardiomyopathy (2) Stroke: Code(s): I63.9 - Cerebral infarction, unspecified (3) Essential hypertension: Code(s): I10 - Essential (primary) hypertension (4) Atherosclerotic cardiovascular disease: Code(s): I25.10 - Atherosclerotic heart disease of [place] coronary artery without angina pectoris Plan Recent EKG shows sinus rhythm at 68/Min, nonspecific interventricular conduction delay and lateral T inversions. Overall, unchanged and similar to prior. Per [facility] notes, there is mention of a symmetric septal hypertrophy and possibility of hypertrophic cardiomyopathy. No records available regarding coronary disease/PCI at [place]. Suggest that we repeat his echocardiogram for reassessment. If necessary, we can proceed with cardiac MRI. Otherwise, do Holter to look for atrial fibrillation. Other records regarding stroke will need to be retrieved from [facility] and reviewed. Blood pressure seems to be on the higher side and may need more meds. Discussed with son. broom bundler used. Orders: Orders CA echo transthoracic complete Today I25.10 - Atherosclerotic heart disease of [place] coronary artery without angina pectoris, I42.2 - Other hypertrophic cardiomyopathy ECG 14 day holter monitor Today I48.0 - Paroxysmal atrial fibrillation, I63.9 - Cerebral infarction, unspecified Coding Level of Care Code New Pt Level 4 (46618) Diagnoses Asymmetric septal hypertrophy I42.2 Stroke I63.9 Essential hypertension I10 Atherosclerotic cardiovascular disease I25.10
[2023-03-24 14:05] VITALS: BP 150/66; PULSE 69; BMI 23.5
== END 2023-03-24 14:54 | disposition home or self-care (01) ==
PROVIDERS: PCP Internal Medicine; Visit Provider Internal Medicine
DX: I42.2 Other hypertrophic cardiomyopathy (principal); I63.9 Cerebral infarction, unspecified; I10 Essential (primary) hypertension; I25.10 Atherosclerotic heart disease of native coronary artery without angina pectoris
CPT/HCPCS: 99214

== ENCOUNTER → 2023-03-24 14:01 | Outpatient (BNVA) | payer OTHER, SELFPAY | PROVIDERS: PCP Internal Medicine; Visit Provider Internal Medicine | DX: I42.2 Other hypertrophic cardiomyopathy (principal); I25.10 Atherosclerotic heart disease of native coronary artery without angina pectoris; I10 Essential (primary) hypertension; Z86.73 Personal history of transient ischemic attack (TIA), and cerebral infarction without residual deficits | CPT/HCPCS: 99212 ==

== ENCOUNTER → 2023-04-24 12:59 | Outpatient (REF) | payer OTHER, SELFPAY ==
--- NOTE | 2023-04-24 13:17 | HM_ITS ---
Conclusion: 1. Patient was monitored for total period of 30 days 2. Baseline was normal sinus with average heart of 65 beats per minute 3. Rare PACs and PVCs noted 4. Infrequent supraventricular tachycardia episode noted with longest episode of 9 beats at 141 beats per minute 5. One 6 beat run of nonsustained VT noted at 125 beats per minute 6. 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
--- NOTE | 2023-04-24 13:17 | CA_ITS ---
Transthoracic Echocardiogram Amended Patient (Last, First, Middle): Shaheed Larkin, Gender: Male Date of : 1940 Age: 82 Procedure Date: 04/24/2023 Procedure Type: Transthoracic Echocardiogram Location: OP Height: 170.18 cm Weight: 68.04 kg BSA: 1.79 m2 Heart Rate: 67 bpm BP: 148 / 64 mmHg Content Architect: SB Referring MD: Waqas Real MD Signal Timer: Laci Underwood MD Symptoms: I25.10 - Atherosclerotic heart disease of [place] coronary artery without... Study Quality: Adequate w contrast ECG Rhythm: Sinus Conclusions: - 1. Hyperdynamic LV ejection fraction of greater than 70% with mild LVH with impaired relaxation filling pattern 2. Normal cardiac valvular Doppler 3. Normal RVSP Findings Procedure Information Contrast agent, definity, is being given per protocol without apparent complications. Left Ventricle Normal left ventricular cavity size. There is mildly increased left ventricular wall thickness. The left ventricular systolic function is hyperdynamic. The visually estimated ejection fraction is >70%. Spectral Doppler is indicative of an impaired relaxation filling pattern. E/E prime ratio is between 8 and 15 consistent with indeterminate filling pressures. Right Ventricle Normal right ventricular cavity size and systolic function. Atria The left atrium is normal in size. Interatrial shunt cannot be excluded. The right atrium is normal in size. Aortic Valve There is mild calcification of the aortic valve. There is mild thickening of the aortic valve. There is no aortic valve stenosis. There is no aortic valve regurgitation. Mitral Valve There is mild anterior and posterior mitral leaflet thickening. There is trace mitral valve regurgitation. There is no mitral valve stenosis. Pulmonic Valve The pulmonic valve is likely normal. There is trace to mild pulmonic valve regurgitation. Tricuspid Valve Normal tricuspid valve structure. There is mild tricuspid valve regurgitation. The right ventricular systolic pressure is normal. The right ventricular systolic pressure is 25 mmHg. Normal right atrial pressure. There is no evidence of pulmonary hypertension. Great Vessels All visible segments of the aorta are normal in size. The pulmonary artery was not well visualized. There is no dilatation of the ascending aorta. Venous The inferior vena cava is normal in size and collapses greater than 50% with inspiration. Pericardium/Pleural There is no evidence of pericardial effusion. Measurements 2D Linear Measurements IVSd: 1.44 0.6-0.9/0.6-1.0 cm LVIDd: 3.97 3.9-5.3/4.2-5.9 cm LVIDd Index: 2.22 2.4-3.2/2.2-3.1 cm/m2 LVIDs: 2.17 2.0-3.6 cm LVPWd: 1.13 0.7-1.1 cm LA Diam: 3.50 2.7-3.8/3.0-4.0 cm LAIDs Index: 1.96 1.5-2.3 cm/m2 LV Mass: 225.84 67-162/88-224 g LV Mass Index: 126.17 43-95/49-115 g/m2 LVOT Diam: 2.00 3.0+(-)1.3 cm 2D Volumes LA Vol: 20.40 2D Systolic Function EF 4C: 58.90 >55% EF 2C: 83.10 >55% EF BiP: 74.20 >55% Mitral Valve MV Pk E: 0.62 MV PK A: 0.72 MV Decel Time: 282.00 E/A: 0.90 E'Lateral: 5.22 E'Medial: 5.22 E/E' Med: 11.80 E/E' Lat: 11.80 PHT: 83.00 MVA PHT: 2.65 Decel [place]: 2.19 Aortic Valve AoV Pk [place]: 1.01 AoV Pk Grad: 4.00 GLENDY: 3.17 LVOT LVOT Pk [place]: 1.00 LVOT Mn [place]: 0.82 LVOT VTI: 0.26 LVOT Pk Grad: 4.00 LVOT Mn Grad: 3.00 LVOT Diam: 2.00 LVOT Area: 3.14 Diastolic Function MV Pk E: 0.62 MV Pk A: 0.72 E/A: 0.90 E'Medial: 5.22 E/E' Med: 11.80 E' Laterial: 5.22 E/E' Lat: 11.80 Right Ventricle TAPSE (mm): 25.40 TVS' [place]: 12.10 Tricuspid Valve TR Pk [place]: 2.35 TR Pk Grad: 22.00 RA Press: 3.00 RVSP: 25.00 Great Vessels Aorta Sinus of Valsalva: 3.10 2.0-3.5 cm Ao Asc: 3.20 2.1-3.4 cm Pulmonary Veins Pulm Vein S/D 1.80 Pulmonary Valve PV Pk Shel[place]: 0.78 Peak PV Grad: 2.00 SD Pk Shel[place]: 1.51 Updated in Other Vendor System with Status of Final Laci Underwood MD electronically signed on 04/29/2023 8:36:22 AM with status of Final
== END ==
LOC: HO.CARD 12:59
PROVIDERS: PCP Internal Medicine; Visit Provider Internal Medicine
DX: I25.10 Atherosclerotic heart disease of native coronary artery without angina pectoris (principal); I42.2 Other hypertrophic cardiomyopathy; I63.9 Cerebral infarction, unspecified; I48.0 Paroxysmal atrial fibrillation; I10 Essential (primary) hypertension
CPT/HCPCS: 93246; 93306; Q9957

== ENCOUNTER → 2023-04-24 13:17 | Outpatient (BNV) | payer OTHER, SELFPAY | PROVIDERS: PCP Internal Medicine; Visit Provider Internal Medicine Cardiovascular Disease | DX: R00.0 Tachycardia, unspecified (principal) | CPT/HCPCS: 93248; 93306 ==

== ENCOUNTER 2023-12-02 01:03 | Emergency (ER) | payer OTHER, SELFPAY ==
--- NOTE | ~2023-12-02 | XR_ITS ---
EXAMINATION: XR CHEST CLINICAL INFORMATION: Pain. COMPARISON: Chest radiograph 11/08/2022. CT angiography neck 03/28/2022 TECHNIQUE: Frontal view of the chest was obtained. FINDINGS: Normal appearance of the cardiomediastinal structures. No focal pulmonary consolidation visualized. No effusions or pneumothoraces identified. Grossly normal pattern of pulmonary vasculature is identified. No suspicious osseous lesions identified. XR/XR chest 1V IMPRESSION: No acute cardiopulmonary abnormalities identified.
[2023-12-02 01:06] VITALS: BP 165/82; PULSE 78; O2SAT 97
--- NOTE | 2023-12-02 01:11 | ECG_ITS ---
Test Reason : CHEST PAIN Blood Pressure : / mmHG Vent. Rate : 072 BPM Atrial Rate : 072 BPM P-R Int : 154 ms QRS Dur : 092 ms QT Int : 406 ms P-R-T Axes : 068 004 100 degrees QTc Int : 444 ms Normal sinus rhythm Possible Anterior infarct (cited on or before 02-DEC-2023) T wave abnormality, consider lateral ischemia Abnormal ECG When compared with ECG of 30-JAN-2023 13:02, No significant change was found Referred By: Generic ED Physician Electronically Signed By:ALYSHA PORTILLO
[2023-12-02 01:23] VITALS: BP 157/73; PULSE 76; RESP 16; TEMP 37.2; O2SAT 97; BMI 24.4
[2023-12-02 01:36] LABS: MANUAL DIFF FLAG NO
[2023-12-02 01:37] LABS: Basophils Percent Auto 0.5 % (0-2); Eosinophils Absolute Auto 0.6 X10*3/uL (0.0-0.4); Eosinophils Percent Auto 8.9 % (0-4); Hematocrit 39.3 % (42.0-52.0); Hemoglobin 13.6 g/dl (14.0-18.0); Imm Gran Abs Auto 0.02 X10*3/uL (0.00-0.03); Imm Gran Pct Auto 0.3 % (0.0-0.4); Lymphocytes Absolute Auto 2.3 X10*3/uL (1.2-4.9); Lymphocytes Percent Auto 37.4 % (20-40); Mean Corpuscular HGB Conc 34.6 g/dl (31.0-36.0); Mean Corpuscular Hemoglobin 30.9 pg (27.0-33.0); Mean Corpuscular Volume 89.3 fL (80.0-98.0); Mean Platelet Volume 10.8 fL (9.4-12.4); Monocytes Absolute Auto 0.5 X10*3/uL (0.1-1.2); Monocytes Percent Auto 8.7 % (2-11); Neutrophils Absolute Auto 2.8 x10*3/uL (2.0-8.3); Neutrophils Percent Auto 44.2 % (45-73); Platelet Count 227 X10*3/uL (160-400); Red Cell Distribution Width 13.9 % (11.0-16.0); White Blood Count 6.2 X10*3/uL (4.8-10.8)
[2023-12-02 01:50] LABS: Anion Gap 14 (12-20); Blood Urea Nitrogen 12 mg/dL (9-16); Calcium 9.8 mg/dL (8.4-10.2); Carbon Dioxide 22 mmol/L (22-29); Chloride 110 mmol/L (96-108); Creatinine Clr Calc Pharmacy 50.7; Estimated Glomerular Filt Rate > 60; Glucose Random 107 mg/dL (60-115); Potassium 3.8 mmol/L (3.3-5.1); Sodium 142 mmol/L (135-145)
--- NOTE | 2023-12-02 01:53 | ED_ITS ---
HPI - Chest Pain General Chief Complaint: Chest Pain Stated Complaint: CP Time Seen by Provider: 12/02/23 01:16 Source: patient Mode of arrival: ambulatory Limitations: no limitations History of Present Illness ED Provider: JASON MAGALLON narrative: 82 yo male with PMH of HTN, CAD, CVA with R sided deficits and dysarthria, GERD, HLD here chest pain starting at rest at 10pm he feels a little dizzy too. No cough, dyspnea, nausea. He denies anything that make it worse. He reports feeling well today. 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 He denies any recent episodes of chest pain MD complaint: chest pain Onset (ago): hour(s) (10pm) Timing of current episode: other (improved) Prior episodes: Yes Onset: during rest Pain location: left chest Pain radiation: none Severity: moderate Quality: aching Relieving factors: nothing Exacerbating factors: nothing Associated symptoms: other (dizziness) Treatment prior to arrival: none Related Data Home Medications ?Medication ?Instructions ?Recorded ?Confirmed amlodipine 10 mg tablet 10 mg PO DAILY 03/24/23 03/24/23 aspirin 81 mg tablet,delayed 81 mg PO DAILY 03/24/23 03/24/23 release atorvastatin 80 mg tablet 80 mg PO DAILY 03/24/23 03/24/23 carvedilol 6.25 mg tablet mg PO BID 03/24/23 03/24/23 hydralazine 25 mg tablet 25 mg PO TID 03/24/23 03/24/23 mirtazapine 15 mg tablet 15 mg PO BEDTIME 03/24/23 03/24/23 pantoprazole 40 mg tablet,delayed 40 mg PO BID 03/24/23 03/24/23 release Allergies Allergy/AdvReac Type Severity Reaction Status Date / Time No Known Allergies Allergy Verified 12/02/23 01:26 Review of Systems 2 Review of Systems: Constitutional : No Weight loss, No Fever, No Chills ENT/Mouth : No sore throat, No Rhinorrhea Eyes: No Eye Pain, No Swelling Cardiovascular : pos Chest Pain, no SOB, no Dyspnea on Exertion, No Orthopnea, No Edema, No Palpitations Respiratory : No Cough, No Sputum Gastrointestinal : pos Nausea, No Vomiting, No Diarrhea, No abdominal Pain, No Hematochezia, No Melena Genitourinary : No Dysuria, No Urinary Frequency Musculoskeletal : No joint pain, No Myalgias, No Joint Swelling Skin : No Skin Lesions, No rash Neuro : No Weakness, No Numbness, pos Dizziness, No Headache All other systems reviewed and are negative [facility] Past Medical History Attestation statement: The following information was validated with the patient. Source: old records reviewed Medical History Atherosclerotic cardiovascular disease Essential hypertension Stroke Surgical History Hx of cardiac catheterization Family History Family History (Updated 03/24/23 @ 14:08 by Nena Seals) Mother No problems noted. Father Heart problem Social History Social History Alcohol intake: never Patient Tobacco Use Status: Never used Tobacco Advance Directives: No Advance Directives Information Provided: Yes Do you have a plan to hurt others: No Plan Physical Exam 2 Vital Signs: Vital Signs: Last Vital Signs Temp 97.4 F 12/02/23 03:12 Pulse 66 12/02/23 03:12 Resp 16 12/02/23 03:12 BP 132/66 12/02/23 03:12 Pulse Ox 96 12/02/23 03:12 O2 Del Method Room Air 12/02/23 03:12 BMI result Body Mass Index 24.4 Appearance: Alert. Oriented X3. No acute distress. Eyes: Pupils equal, round and reactive to light. ENT: Pharynx normal. Neck: Normal inspection. Neck supple. CVS: Normal heart rate and rhythm. Pulses normal. Respiratory: No respiratory distress. Breath sounds normal. Abdomen: Soft and non-tender. Skin: Skin warm and dry. Normal skin color. Normal skin turgor. Extremities: No lower extremity edema. Neuro: Oriented X 3. R sided deficits. No sensory deficit. Medical Decision Making Medical Decision Making MDM Narrative: 82 yo male with PMH of HTN, CAD, CVA with R sided deficits and dysarthria, GERD, HLD here with chest pain starting at 10pm and feeling slightly dizzy while at rest no other symptoms reported states he feels better now at this time he has no new deficits declines pain medications. He was given ASA in the field. He denies recent illness, fevers, URI symptoms, falls, trauma. Labs, troponin x 2, CXR Differential Diagnosis Differential Diagnoses: The differential diagnosis associated with the presentation includes atypical chest pain, anemia, dehydration at this time he declines pain medications he has no tachycardia hypoxia not pleuritic seems atypical for VTE Admission/Observation Consideration of admission/observation: Escalation of care including admission/observation considered repeat trop flat at 6 hr baylee has no symptoms feels better EKG unchanged CXR negative at this time stable for DC Lab Data MDM Lab Attestation statement: I reviewed the patient's lab results. 12/02/23 01:32 12/02/23 01:32 Labs: Lab Results 12/02/23 12/02/23 Range/Units 01:32 04:03 WBC 6.2 (4.8-10.8) X10*3/uL RBC 4.40 L (4.60-5.80) X10*6/uL Hgb 13.6 L (14.0-18.0) g/dl Hct 39.3 L (42.0-52.0) % MCV 89.3 (80.0-98.0) fL MCH 30.9 (27.0-33.0) pg MCHC 34.6 (31.0-36.0) g/dl RDW 13.9 (11.0-16.0) % Plt Count 227 (160-400) X10*3/uL MPV 10.8 (9.4-12.4) fL Immature Gran % (Auto) 0.3 (0.0-0.4) % Neut % (Auto) 44.2 L (45-73) % Lymph % (Auto) 37.4 (20-40) % [place] % (Auto) 8.7 (2-11) % Eos % (Auto) 8.9 H (0-4) % Baso % (Auto) 0.5 (0-2) % Lymph # (Auto) 2.3 (1.2-4.9) X10*3/uL [place] # (Auto) 0.5 (0.1-1.2) X10*3/uL Eos # (Auto) 0.6 H (0.0-0.4) X10*3/uL Baso # (Auto) 0.0 (0.0-0.2) X10*3/uL Abs Immat Gran (auto) 0.02 (0.00-0.03) X10*3/uL Absolute Neuts (auto) 2.8 (2.0-8.3) x10*3/uL Absolute Nucleated RBC 0.000 (0.0-0.012) X10*3/uL Nucleated RBC % (auto) 0.0 (0.0-0.2) /100WBC Sodium 142 (135-145) mmol/L Potassium 3.8 (3.3-5.1) mmol/L Chloride 110 H (96-108) mmol/L Carbon Dioxide 22 (22-29) mmol/L Anion Gap 14 (12-20) BUN 12 (9-16) mg/dL Creatinine 1.16 (0.5-1.4) mg/dL Estim Creat Clear Calc 50.7 Estimated GFR > 60 Random Glucose 107 (60-115) mg/dL Calcium 9.8 (8.4-10.2) mg/dL Troponin I High Sens 4.3 4.8 (<3.5-35.0) ng/L B-Natriuretic Peptide 31 (<100) pg/mL Independent Interpretation I performed an independent interpretation of an: EKG and Plain X-Ray (normal ) Interpretation: Rate: 72 Rhythm: NSR Nelson: left Normal P waves. Normal DARWIN. Normal QRS complex. ST T wave : inverted t waves I and aVL, V5-V6, no EDGARD qTC: 444 prior studies: no sig change from priors The study has been interpreted contemporaneously by me. . Radiology Impression Discussion of test interpretation with radiology: I have reviewed the radiologist's reading. Independent Historian Clinical information obtained from an independent historian. History obtained from or confirmed by: EMS External Record Review External record reviewed: Inpatient record Discharge Plan Discharge Clinical Impression: Atypical chest pain Patient Disposition: Home, Self-Care Instructions: Chest Pain (ED) Additional Instructions: EKG at baseline repeat blood tests for heart normal hemoglobin at baseline Chest xray normal return for any worsening symptoms or concerns follow up with your doctor Prescriptions: No Action hydralazine 25 mg tablet 25 mg PO TID mirtazapine 15 mg tablet 15 mg PO BEDTIME pantoprazole 40 mg tablet,delayed release (DR/EC) 40 mg PO BID amlodipine 10 mg tablet 10 mg PO DAILY carvedilol 6.25 mg tablet PO BID atorvastatin 80 mg tablet 80 mg PO DAILY aspirin 81 mg tablet,delayed release (DR/EC) 81 mg PO DAILY Print Language: Belarusian
[2023-12-02 01:56] LABS: B Type Natriuretic Peptide 31 pg/mL (<100)
[2023-12-02 01:58] LABS: Troponin-I High Sensitivity 4.3 ng/L (<3.5-35.0)
[2023-12-02 03:12] VITALS: BP 132/66; PULSE 66; RESP 16; TEMP 36.3; O2SAT 96
--- NOTE | 2023-12-02 04:04 | PC.NURSE ---
repeat troponin obtained/sent to lab by tech.
[2023-12-02 04:35] LABS: Troponin-I High Sensitivity 4.8 ng/L (<3.5-35.0)
[2023-12-02 05:29] VITALS: BP 132/66; PULSE 66; RESP 16; TEMP 36.3; O2SAT 96
--- OUTSIDE RECORDS SUMMARY | 2023-12-03 08:01 | XMS_ITS | Continuity of Care Document ---
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 Role Phone Not on Staff, PCP Primary Care Physician Unavail able Encounter [facility] Date(s): 07/23/22 - 11/20/22 [facility] [address] [place] [id number] Attending Physician: Alexander Rock MD Admitting Physician: Alexander Rock MD Referring Physician: Not on Staff, Referring MD Allergies, Adverse Reactions, Alerts No Known Allergies Medications (Vitamin D3) Cholecalciferol 400 CUSTODIAL units/mL oral syringe 1 mL = 10 mcg, By Mouth, Daily, 0 Refills, Maintenance, 03/31/22 18:59:00 EST, Partial fill upon patientrequest if the prescription is for a schedule II opioid drug. Start Date: 03/31/22 Status: Ordered amLODIPine 10 mg oral tablet 10 mg, 1, tablet, By Mouth, Daily, Refills 0, Maintenance, 04/22/22 8:46:00 EST, Partial fill upon patient request if the prescription is for a schedule II opioid drug. Start Date: 04/22/22 Status: Ordered Artificial Tears 1.4% 1 drop, Eye, Left, 3 times a day, PRN Other, Dryness., 0 Refills, Maintenance, 04/22/22 8:47:00 EST, Ophth Solution, Partial fill upon patient request if the prescription is for a schedule II opioid drug. Start Date: 04/22/22 Status: Ordered aspirin 81 mg oral delayed release tablet 81 mg, 1, tablet, By Mouth, Daily, # 30 tablet, Refills 10, Tot. Refills 10, Maintenance, 06/03/22 11:08:00 EST, Route to Pharmacy Electronically, [facility]/pharmacy #[id number], Partial fill upon patient request if the prescription is for a schedule II opioid drSophia. Start Date: 06/03/22 Status: Ordered atorvastatin 80 mg oral tablet 1 tablet = 80 mg, By Mouth, Daily at bedtime, 0 Refills, Maintenance, 04/22/22 8:46:00 EST, Tablet,Partial fill upon patient request if the prescription is for a schedule II opioid drug. Start Date: 04/22/22 Status: Ordered Coreg 12.5 mg oral tablet 12.5 mg, 1, tablet, By Mouth, 2 times a day, Refills 0, Maintenance, 04/22/22 8:46:00 EST, Partial fill upon patient request if the prescription is for a schedule II opioid drug. Start Date: 04/22/22 Status: Ordered Docusate/Senna Tablet 2 tablet, By Mouth, Daily, PRN Constipation, 0 Refills, Maintenance, 04/22/22 8:47:00 EST, Tablet, Partial fill upon patient request if the prescription is for a schedule II opioid drug. Start Date: 04/22/22 Status: Ordered hydrALAZINE 25 mg oral tablet 100 mg, 4, tablet, By Mouth, 3 times a day, Refills 0, Maintenance, 04/22/22 8:46:00 EST, Partial fill upon patient request if the prescription is for a schedule II opioid drug. Start Date: 04/22/22 Status: Ordered mirtazapine 15 mg oral tablet 1 tablet = 15 mg, By Mouth, Daily at bedtime, 0 Refills, Maintenance, 04/22/22 8:46:00 EST, Tablet,Partial fill upon patient request if the prescription is for a schedule II opioid drug. Start Date: 04/22/22 Status: Ordered oral supplement oral supplement, See Instructions, # 30 each, Refills 0, Tot. Refills 0, Maintenance, 0.7 KCal/ml high protein 1 bottle TID with meals. vanilla, 04/22/22 9:13:00 EST, Supply Start Date: 04/22/22 Status: Ordered thiamine 100 mg oral tablet 100 mg, 1, tablet, By Mouth, Daily, Refills 0, Maintenance, 04/22/22 8:47:00 EST, Partial fill uponpatient request if the prescription is for a schedule II opioid drug. Start Date: 04/22/22 Status: Ordered Problem List Condition Confirmation Course Effective Dates Status [facility] Informant COVID-19 Confirmed Active Patient Care team information Care Team Personnel Name: Anthony Dozier RN Position: [facility] RN Member Role: Primary Care Nurse Name: Travon Armas RN Position: [facility] RN Member Role: Primary Care Nurse Name: Rylee Reyes RN Position: [facility] RN Member Role: Primary Care Nurse Name: Hernán Pettit RN Position: [facility] RN Member Role: Primary Care Nurse Name: Salas Chaudhari RN Position: [facility] RN Member Role: Primary Care Nurse Name: Not on Staff, PCP Position: [facility] Physician (General Medicine) Member Role: PCP Name: Waylon Garay RN Position: [facility] RN Member Role: Primary Care Nurse Care Team Related Persons Name: FAUZIA HASSAN Address: [address] [address]
--- OUTSIDE RECORDS SUMMARY | 2023-12-03 08:01 | XMS_ITS | Continuity of Care Document ---
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 Role Phone Not on Staff, PCP Primary Care Physician Unavail able Encounter [facility] [place] Date(s): 06/03/22 - 07/03/22 [facility] [address], [place] [address] Attending Physician: Rebeca Rosas Admitting Physician: AdmRebeca arzola Referring Physician: Admtr, Ar8 Allergies, Adverse Reactions, Alerts No Known Allergies Medications (Vitamin D3) Cholecalciferol 400 LONGTERM units/mL oral syringe 1 mL = 10 [...] 06/03/22 11:08:00 EST, Route to Pharmacy Electronically, [facility]/pharmacy #[id number], Partial fill upon patient request if the prescription is for a schedule II opioid dr... Start Date: 06/03/22 Status: Ordered atorvastatin 80 [...] Team Personnel Name: Anthony Dozier RN Position: [facility] RN Member Role: Primary Care Nurse Name: Travon Armas RN Position: [facility] RN Member Role: Primary Care Nurse Name: Rylee Reyes RN Position: [facility] RN Member Role: Primary Care Nurse Name: Hernán Pettit RN Position: [facility] RN Member Role: Primary Care Nurse Name: Salas Chaudhari RN Position: [facility] RN Member Role: Primary Care Nurse Name: Not on Staff, PCP Position: [facility] Physician (General Medicine) Member Role: PCP Name: Waylon Garay RN Position: [facility] RN Member Role: Primary Care Nurse Care Team Related Persons Name: FAUZIA HASSAN Address: [address] [address]
--- OUTSIDE RECORDS SUMMARY | 2023-12-03 08:01 | XMS_ITS | Continuity of Care Document ---
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 Phone Not on Staff, PCP Primary Care Physician Unavail able En[place] [facility] [place] Date(s): 06/13/22 - 07/13/22 [facility] [address] [place] [address]- Attending Physician: Rebeac Rosas Admitting Physician: Rebeca Rosas Referring Physician: Rebeca Rosas Allergies, Adverse Reactions, Alerts No Known Allergies Medications (Vitamin D3) Cholecalciferol 400 SKILLED NURSING units/mL oral syringe 1 mL = 10 [...] 06/03/22 11:08:00 EST, Route to Pharmacy Electronically, [facility]/pharmacy #[id number], Partial fill upon patient request if the [...] high protein 1 bottle TID with meals. ray, 04/22/22 9:13:00 EST, Supply Start Date: 04/22/22 [...] Care team information Care Team Personnel Name: Jacoby SÁNCHEZ, Anthony Position: RN Member Role: Primary Care Nurse Name: Travon Armas RN Position: [facility] RN Member Role: Primary Care Nurse Name: Rylee Reyes RN Position: [facility] RN Member Role: Primary Care Nurse Name: Hernán Pettit RN Position: [facility] RN Member Role: Primary Care Nurse Name: Salas Chaudhari RN Position: [facility] RN Member Role: Primary Care Nurse Name: Not on Staff, PCP Position: [facility] Physician (General Medicine) Member Role: PCP Name: Waylon Garay RN Position: [facility] RN Member Role: Primary Care Nurse Care Team Related Persons Name: FAUZIA HASSAN Address: [address] [address]
--- OUTSIDE RECORDS SUMMARY | 2023-12-03 08:01 | XMS_ITS | Continuity of Care Document ---
Author Organization [facility] Address [address] [place] [address]- Care Team Providers Care Shoe Maker Name Role Phone Not on Staff, PCP Primary Care Physician Unavail able En[place] [facility] Date(s): 06/03/22 - 06/27/[address] [address]- Encounter Diagnosis Cerebral infarction, unspecified(Final) - Discharge Disposition: A-D/C Home Attending Physician: Nirali Cota MD Admitting Physician: Nirali Cota MD Referring Physician: Nirali Cota MD Allergies, Adverse Reactions, Alerts No Known Allergies Medications (Vitamin D3) Cholecalciferol 400 LONG-TERM units/mL oral syringe 1 mL = 10 [...] 06/03/22 11:08:00 EST, Route to Pharmacy Electronically, [facility]/pharmacy #[id number], Partial fill upon patient request if the [...] Team Personnel Name: Anthony Dozier RN Position: [facility] RN Member Role: Primary Care Nurse Name: Travon Armas RN Position: S RN Member Role: Primary Care Nurse Name: Rylee Reyes RN Position: S RN Member Role: Primary Care Nurse Name: Hernán Pettit RN Position: [facility] RN Member Role: Primary Care Nurse Name: Salas Chaudhari RN Position: [facility] RN Member Role: Primary Care Nurse Name: Not on Staff, PCP Position: [facility] Physician (General Medicine) Member Role: PCP Name: Waylon Garay RN Position: [facility] RN Member Role: Primary Care Nurse Care Team Related Persons Name: FAUZIA HASSAN Address: [address] [address]
--- OUTSIDE RECORDS SUMMARY | 2023-12-03 08:01 | XMS_ITS | Continuity of Care Document ---
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 rya, 04/22/22 9:13:00 EST, Supply Start Date: 04/22/22 [...] Team Personnel Name: Anthony Dozier RN Position: S RN Member Role: Primary Care Nurse Name: Travon Armas RN Position: [facility] RN Member Role: Primary Care Nurse Name: Rylee Reyes RN Position: S RN Member Role: Primary Care Nurse Name: Hernán Pettit RN Position: [facility] RN Member Role: Primary Care Nurse Name: Salas Chaudhari RN Position: [facility] RN Member Role: Primary Care Nurse Name: Not on Staff, PCP Position: [facility] Physician (General Medicine) Member Role: PCP Name: Waylon Garay RN Position: [facility] RN Member Role: Primary Care Nurse Care Team Related Persons Name: SONYAFAUZIA ARVIZU Address: [address] [address]
--- OUTSIDE RECORDS SUMMARY | 2023-12-03 08:01 | XMS_ITS | Continuity of Care Document ---
Author Organization [facility] Address [address] [place] [address]- Care Team Providers Care Liner Helper Name Role Phone Not on Staff, PCP Primary Care Physician Unavail able Encounter [facility] Date(s): 10/08/22 - 11/07/22 [facility] [address] [place] [address]- Attending Physician: Rebeca Rosas Admitting Physician: Rebeca Rosas Referring Physician: Rebeca Rosas Allergies, Adverse Reactions, Alerts No Known Allergies Medications (Vitamin D3) Cholecalciferol 400 [facility] units/mL oral syringe 1 mL = 10 [...] 06/03/22 11:08:00 EST, Route to Pharmacy Electronically, [facility]/pharmacy #[id number], Partial fill upon patient request if the [...] Team Personnel Name: Anthony Dozier RN Position: [facility] RN Member Role: Primary Care Nurse Name: Travon Armas RN Position: [facility] RN Member Role: Primary Care Nurse Name: Rylee Reyes RN Position: [facility] RN Member Role: Primary Care Nurse Name: Hernán Pettit RN Position: [facility] RN Member Role: Primary Care Nurse Name: Salas Chaudhari RN Position: [facility] RN Member Role: Primary Care Nurse Name: Not on Staff, PCP Position: [facility] Physician (General Medicine) Member Role: PCP Name: Waylon Garay RN Position: [facility] RN Member Role: Primary Care Nurse Care Team Related Persons Name: FAUZIA HASSAN Address: [address] [address]
--- OUTSIDE RECORDS SUMMARY | 2023-12-03 08:01 | XMS_ITS | Continuity of Care Document ---
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) - Discharge Disposition: A-D/C Home Attending Physician: Nirali Cota MD Admitting Physician: Nirali Cota MD Referring Physician: Nirali Cota MD Allergies, Adverse Reactions, Alerts No Known Allergies Medications (Vitamin D3) Cholecalciferol 400 CHCF units/mL oral syringe 1 mL = 10 [...] 06/03/22 11:08:00 EST, Route to Pharmacy Electronically, [facility]/pharmacy #[id number], Partial fill upon patient request if the [...] Team Personnel Name: Anthony Dozier RN Position: [facility] RN Member Role: Primary Care Nurse Name: Travon Armas RN Position: [facility] RN Member Role: Primary Care Nurse Name: Rylee Reyes RN Position: S RN Member Role: Primary Care Nurse Name: Hernán Pettit RN Position: [facility] RN Member Role: Primary Care Nurse Name: Salas Chaudhari RN Position: [facility] RN Member Role: Primary Care Nurse Name: Not on Staff, PCP Position: [facility] Physician (General Medicine) Member Role: PCP Name: Waylon Garay RN Position: [facility] RN Member Role: Primary Care Nurse Care Team Related Persons Name: FAUZIA HASSAN Address: [address] [address]
--- OUTSIDE RECORDS SUMMARY | 2023-12-03 08:01 | XMS_ITS | Continuity of Care Document ---
Author Organization [facility] Address [address] [place] [address]- Care Team Providers Care Dispatcher Street Department Name Role Phone Not on Staff, PCP Primary Care Physician Unavail able Encounter [facility] Date(s): 07/09/22 - 08/08/[address] [address] Attending Physician: Rebeca Rosas Admitting Physician: Rebeca Rosas Referring Physician: AdmtrRebeca Allergies, Adverse Reactions, Alerts No Known Allergies Medications (Vitamin D3) Cholecalciferol 400 [facility] units/mL oral syringe 1 mL = 10 [...] 06/03/22 11:08:00 EST, Route to Pharmacy Electronically, [facility]/pharmacy #[id number], Partial fill upon patient request if the prescription is for a schedule II opioid . Start Date: 06/03/22 Status: Ordered atorvastatin 80 [...] Team Personnel Name: Anthony Dozier RN Position: [facility] RN Member Role: Primary Care Nurse Name: Travon Armas RN Position: [facility] RN Member Role: Primary Care Nurse Name: Rylee Reyes RN Position: [facility] RN Member Role: Primary Care Nurse Name: Hernán Pettit RN Position: [facility] RN Member Role: Primary Care Nurse Name: Salas Chaudhari RN Position: [facility] RN Member Role: Primary Care Nurse Name: Not on Staff, PCP Position: [facility] Physician (General Medicine) Member Role: PCP Name: Waylon Garay RN Position: [facility] RN Member Role: Primary Care Nurse Care Team Related Persons Name: FAUZIA HASSAN Address: [address] [address]
--- OUTSIDE RECORDS SUMMARY | 2023-12-03 08:01 | XMS_ITS | Continuity of Care Document ---
Author Organization [facility] Address [address] [facility], [address] Floor, [address] [place] [address]- Care Team Providers Care Directional Bore Operator Name Role Phone Not on Staff, PCP Primary Care Physician Unavail able [place] [facility] [place] - 06/07/22 [facility] [address], [address], [address] [place] [address]- Attending Physician: Rebeca Rosas Admitting Physician: AdmRebeca arzola Referring Physician: AdmtrRebeca Allergies, Adverse Reactions, Alerts No Known Allergies Medications (Vitamin D3) Cholecalciferol 400 HALFWAY units/mL oral syringe 1 mL = 10 [...] 06/03/22 11:08:00 EST, Route to Pharmacy Electronically, [facility]/pharmacy #[id number], Partial fill upon patient request if the [...] Team Personnel Name: Anthony Dozier RN Position: [facility] RN Member Role: Primary Care Nurse Name: Travon Armas RN Position: [facility] RN Member Role: Primary Care Nurse Name: Rylee Reyes RN Position: [facility] RN Member Role: Primary Care Nurse Name: Hernán Pettit RN Position: [facility] RN Member Role: Primary Care Nurse Name: Salas Chaudhari RN Position: [facility] RN Member Role: Primary Care Nurse Name: Not on Staff, PCP Position: [facility] Physician (General Medicine) Member Role: PCP Name: Waylon Garay RN Position: [facility] RN Member Role: Primary Care Nurse Care Team Related Persons Name: SONYA FAUZIA Address: [address] [address]
--- OUTSIDE RECORDS SUMMARY | 2023-12-03 08:01 | XMS_ITS | Continuity of Care Document ---
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 Role Phone Not on Staff, PCP Primary Care Physician Unavail able Encounter [facility] Date(s): 04/02/22 - 06/28/22 [facility] [address], [address] Floor, [address] [place] [address] Attending Physician: Marybel Berman MD Admitting Physician: Marybel Berman MD Allergies, Adverse Reactions, Alerts No Known Allergies Medications (Vitamin D3) Cholecalciferol 400 [facility] units/mL oral syringe 1 mL = 10 [...] to Pharmacy Electronically, [facility]/pharmacy #[id number], Partial fill upon patient request if the [...] List Condition Confirmation Course Effective Dates Status [facility] Informant COVID-19 Confirmed Active Patient Care team information Care Team Personnel Name: Anthony Dozier RN Position: [facility] RN Member Role: Primary Care Nurse Name: Travon Armas RN Position: [facility] RN Member Role: Primary Care Nurse Name: Rylee Reyes RN Position: [facility] RN Member Role: Primary Care Nurse Name: Hernán Pettit RN Position: [facility] RN Member Role: Primary Care Nurse Name: Salas Chaduhari RN Position: [facility] RN Member Role: Primary Care Nurse Name: Not on Staff, PCP Position: [facility] Physician (General Medicine) Member Role: PCP Name: Waylon Garay RN Position: [facility] RN Member Role: Primary Care Nurse Care Team Related Persons Name: FAUZIA HASSAN Address: [address] [address]
--- OUTSIDE RECORDS SUMMARY | 2023-12-03 08:01 | XMS_ITS | Continuity of Care Document ---
Author Organization [facility] Address [address] [facility], [address] Floor, [address] [place] [address]- Care Team Providers Care Referral Management Liaison Name Role Phone Not on Staff, PCP Primary Care Physician Unavail able Encounter [facility] [place] Date(s): 04/02/22 - 06/07/22 [facility] [address], [address], [address] [place] [address]- Attending Physician: Marybel Berman MD Admitting Physician: Marybel Berman MD Allergies, Adverse Reactions, Alerts No Known Allergies Medications (Vitamin D3) Cholecalciferol 400 SHELTER units/mL oral syringe 1 mL = 10 [...] 06/03/22 11:08:00 EST, Route to Pharmacy Electronically, [facility]/pharmacy #[id number], Partial fill upon patient request if the prescription is for a schedule II opioid drJonathan.. Start Date: 06/03/22 Status: Ordered atorvastatin 80 [...] Team Personnel Name: Anthony Dozier RN Position: [facility] RN Member Role: Primary Care Nurse Name: Travon Armas RN Position: [facility] RN Member Role: Primary Care Nurse Name: Rylee Reyes RN Position: [facility] RN Member Role: Primary Care Nurse Name: Hernán Pettit RN Position: [facility] RN Member Role: Primary Care Nurse Name: Salas Chaudhari RN Position: [facility] RN Member Role: Primary Care Nurse Name: Not on Staff, PCP Position: [facility] Physician (General Medicine) Member Role: PCP Name: Waylon Garay RN Position: [facility] RN Member Role: Primary Care Nurse Care Team Related Persons Name: SONYA FAUZIA Address: [address] [address]
--- OUTSIDE RECORDS SUMMARY | 2023-12-03 08:01 | XMS_ITS | Continuity of Care Document ---
Author Organization [facility] ter Address [address] [place] [id number]- Care Team Providers Care [employer] Name Role Phone Not on Staff, PCP Primary Care Physician Unavail able Encounter [facility] Date(s): 03/28/22 - 05/01/[address] [address]- Encounter Diagnosis Acute right MCA stroke(Final) - 03/28/22 Discharge Disposition: Disch/Trans to IP Rehab or unit w/in Hos Attending Physician: Kostas Alfonso MD Admitting Physician: Camille Chappell MD Referring Physician: Not on Staff, Referring [...] By Mouth, Daily, # 30 tablet, Refills 0, Maintenance, 03/29/22 4:10:00 EST, Partial fill upon patient request if the prescription is for a schedule II opioid drug. Start Date: 03/29/22 Status: Ordered atorvastatin 80 mg oral tablet [...] [facility] Informant COVID-19 Confirmed Active Results Radiology Reports * Exam Date Time Procedure Performing Provider Status 04/16/22 6:57 AM Chest Portable An Henry; Mayda (Devon ified) Notes: (Chest Portable) Reason For Exam: Line Placement RESULT: Chest Portable Chest Portable Reason: Line Placement; Clinical Question(s): Line Placement COMPARISON: 04/12/2022 and 03/28/2022 FINDINGS: LINES AND TUBES: Enteric tube courses below the diaphragm and off of the image. LUNGS AND PLEURA: Right apical pleural opacity present. No other focal consolidation seen. Normal pulmonary vascularity. No pleural effusion. No pneumothorax. HEART, MEDIASTINUM AND MICHELLE: Heart is normal in size. Normal mediastinal and hilar contour. BONES AND SOFT TISSUES: No acute abnormality. IMPRESSION: Enteric tube courses below the diaphragm and off of the image. Stable right apical pleural opacity. No new focal consolidation. WSN: [id number] Ordering Physician: Sundar Mccartney Dictated By: Marika Quevedo MD Dictated Date/Time: 04/16/22 8:07 am Reviewed By: Marika Quevedo MD Signed By: Marika Quevedo MD Signed Date/Time: 04/16/22 8:07 am Transcribed By: ZOE Transcribed Date/Time: 04/16/22 7:58 am * Exam Date Time Procedure Performing Provider Status 04/12/22 5:09 PM Chest Portable Lonnie Heaton (Verified) Notes: (Chest Portable) Reason For Exam: Tube Placement RESULT: Chest Portable Chest Portable Reason: Tube Placement; Clinical Question(s): Tube Placement COMPARISON: X-ray from 03/28/2022 FINDINGS: LINES AND TUBES: NG tube tip and side port are in the stomach. LUNGS AND PLEURA: Clear lungs. Normal pulmonary vascularity. No pleural effusion. No pneumothorax. HEART, MEDIASTINUM AND MICHELLE: Heart is normal in size. Normal mediastinal and hilar contour. BONES AND SOFT TISSUES: No acute abnormality. IMPRESSION: No acute cardiopulmonary pathology. Well-positioned NG tube. WSN: [id number] Ordering Physician: Mata Villeda Dictated By: Camron Calderón MD Dictated Date/Time: 04/12/22 5:29 pm Reviewed By: Camron Calderón MD Signed By: Camron Calderón MD Signed Date/Time: 04/12/22 5:29 pm Transcribed By: ZOE Transcribed Date/Time: 04/12/22 5:28 pm * Exam Date Time Procedure Performing Provider Status 04/04/22 4:30 AM MRI Brain W/O Contrast Tray Hensleylucina carr; Auth (Verified) Notes: (MRI Brain W/O Contrast) Reason For Exam: extent of stroke;Hemiparesis RESULT: MRI Brain W/O Contrast MRI Brain W/O Contrast INDICATION: Reason: Hemiparesis; extent of stroke; Clinical Question(s): Infarction; Special Instructions: Patient is enrolled in VERIFY; please only do high res T1 ([id number] voxel size)- BOYCE sequence and DWI sequence.; Order Comment: Please see Reference Text for complete list of contraindications Infarction TECHNIQUE: MRI of the brain was performed without contrast utilizing sagittal T1, axial T2, axial FLAIR, axial SWAN, 3D axial T1 BOYCE, and axial DWI sequences. COMPARISON: Brain MRI 04/01/2022. FINDINGS: BRAIN and EXTRA-AXIAL SPACES: Acute infarct in the left MCA territory again demonstrated, with areas of intrinsic T1 shortening and susceptibility indicating combination of cortical laminar necrosis and petechial hemorrhages. This is similar to the previous exam. Local sulcal effacement and mild local mass effect with partial effacement of the left lateral ventricle and minimal rightward midline shift, unchanged. Scattered nonspecific T2/flair hyperintensities in the white matter are noted which most likely reflect chronic small vessel disease. Mild global prominence of the ventricles and sulci reflecting volume loss. No extra-axial collection. The major intracranial vascular flow voids are preserved. EXTRACRANIAL SOFT TISSUES: Orbits are unremarkable. Paranasal sinuses and mastoids are unremarkable. BONES: Marrow signal is preserved. IMPRESSION: Left MCA territory infarct again demonstrated with hemorrhagic conversion and cortical laminar necrosis. This is unchanged. WSN: [id number] Ordering Physician: Marybel Berman Dictated By: Janelle Briceño MD Dictated Date/Time: 04/04/22 8:00 am Reviewed By: Janelle Briceño MD Signed By: Janelle Briceño MD Signed Date/Time: 04/04/22 8:00 am Transcribed By: ZOE Transcribed Date/Time: 04/04/22 7:56 am * Exam Date Time Procedure Performing Provider Status 04/01/22 2:29 AM MRI Brain W/O Contrast Pooja Gilliam [facility] (Verified) Notes: (MRI Brain W/O Contrast) Reason For Exam: CVA;Other: RESULT: MRI Brain W/O Contrast MRI Brain W/O Contrast INDICATION: CVA; Clinical Question(s): Infarction; acute onset of right arm weakness and speech problems TECHNIQUE: MRI of the brain was performed without contrast utilizing sagittal T1, axial T2, axial FLAIR, axial SWAN, and axial DWI sequences. COMPARISON: CT of head on 03/29/2022 FINDINGS: BRAIN and EXTRA-AXIAL SPACES: There is a large irregular area of restricted diffusion involving thelateral aspect of the left posterior frontal, parietal, temporal and occipital lobes including the left posterior insula, consistent with an acute infarct of the left MCA territory. This is associated susceptibility artifacts in the left parieto-occipital lobes suggesting hemorrhagic conversion. These findings were present on the prior CT. Additional smaller areas of acute infarcts of various sizes are also seen involving the posterior medial aspect of the left frontal lobe, the left frontal white matter, the left basal ganglia and the left anterior medial temporal lobe. A small focal area ofsusceptibility artifact is seen in the left anterior temporal lobe. The left lateral ventricle is mildly effaced. No hydrocephalus. Minimal left to right midline shift. Mild bilateral white matter disease is nonspecific and could be due to chronic small vessel ischemic disease. There is mild generalized age-related atrophy. EXTRACRANIAL SOFT TISSUES: Orbits are unremarkable. Paranasal sinuses are unremarkable. Minimal mucosal thickening within the right mastoid. BONES: Marrow signal is preserved. IMPRESSION: Acute infarcts of various sizes within the left MCA territory, most significant at the left lateralparieto-occipital lobes where there are hemorrhagic conversions. WSN: [id number] Ordering Physician: Laci Cage Dictated By: Hosea Santiago MD Dictated Date/Time: 04/01/22 8:22 am Reviewed By: Hosea Santiago MD Signed By: Hosea Santiago MD Signed Date/Time: 04/01/22 8:22 am Transcribed By: ZOE Transcribed Date/Time: 04/01/22 8:22 am * Exam Date Time Procedure Performing Provider Status 03/29/22 3:[address] Head/Brain W/O Contrast Yaneli Li (Verified) Notes: (CT Head/Brain W/O Contrast) Reason For Exam: CVA follow up;Other: RESULT: CT Head/Brain W/O Contrast CT Head/Brain W/O Contrast INDICATION: CVA follow up; Clinical Question(s): Infarction TECHNIQUE: Noncontrast head CT using axial technique and reconstructed in axial and coronal planes.Iterative reconstruction techniques are used to optimize dose and image quality. CTDIvol Head: 47.10 mGy, DLP Head: 773 mGy*cm. COMPARISON: CT head 03/28/2022 (seen on ANH) and CT perfusion 03/28/2022 FINDINGS: Agent Licensing Clerk view findings, lines and tubes: None. BRAIN AND EXTRA-AXIAL SPACES: Interval development of defined hypodensity involving the cortical chapman matter with loss of chapman-white matter differentiation in the left MCA territory including the left frontoparietal region, with resultant mild mass effect and partial effacement of the atrium of the left lateral ventricle. In addition there are few irregular foci of hyperdensity, suggestive of hemorrhage within the infarcted regions in the left parietal lobe,. No midline shift noted. . Mild prominence of the ventricles and sulci consistent with parenchymal volume loss. Mild low-density white matter changes. No subarachnoid hemorrhage. No subdural or epidural collection. CALVARIUM, SKULL BASE, AND SOFT TISSUES: No fractures or suspicious bony lesions. Mild mucosal thickening of the right frontal sinus and right maxillary sinus. The other paranasal sinuses and mastoid air cells are clear. Visualized orbits and globes are intact. The extracranial soft tissues are unremarkable. IMPRESSION: Evolving left MCA territory infarct, with cytotoxic edema causing mild mass effect on the atrium ofthe left lateral ventricle. No midline shift. There is early hemorrhagic transformation of the infarct in the left parietal lobe.. A critical result message ([place]) has been communicated via the [employer] system on 03/29/2022 4:12 PM, Message ID [id number]. I have personally reviewed the images and I agree with this report. WSN: [id number] Ordering Physician: Laci Cage Dictated By: Yuridia Causey DO Dictated Date/Time: 03/29/22 4:12 pm Reviewed By: Marika Quevedo MD Signed By: Marika Quevedo MD Signed Date/Time: 03/29/22 4:17 pm Transcribed By: ZOE Transcribed Date/Time: 03/29/22 3:55 pm * Exam Date Time Procedure Performing Provider Status 03/28/22 8:[address] Perfusion Melissa Pemberton; Mayda (Varun jacobsen) Notes: (CT Perfusion) Reason For Exam: Intracranial vascular pathology;Other: RESULT: CT Perfusion CT Perfusion INDICATION/CLINICAL QUESTION: Right arm weakness. Aphasia. Intracranial vascular pathology; Clinical Question(s): Infarct / Infarct. TECHNIQUE: CT perfusion imaging of the head was performed during the administration of 70 mL Omnipaque 300 intravenous contrast. Data were set to RAPID for processing. CTDIvol Head: 94.40 mGy, DLP Head: 755 mGy*cm. COMPARISON: None. FINDINGS: There is a confluent region of delayed time to peak with T max greater than 6 seconds involving theleft parieto-occipital lobes in the left MCA territory. The calculated volume is 41 mL. The volume of tissue in this region with a cerebral blood flow of less than 30% is calculated at 15mL, involving the left parieto-occipital lobes. The area of tissue with cerebral blood volume less than 34% has a similar distribution, with volume calculated at 17 mL. The mismatch volume is 26 mL (mismatch ratio: 2.7). IMPRESSION: Abnormal perfusion in the setting of left distal MCA stenosis/occlusion, with perfusion mismatch volume 26 mL in the left parieto-occipital lobes. WSN: [id number] Ordering Physician: Laci Dougherty Dictated By: Hosea Santiago MD Dictated Date/Time: 03/29/22 8:02 am Reviewed By: Hosea Santiago MD Signed By: Hosea Santiago MD Signed Date/Time: 03/29/22 8:02 am Transcribed By: ZOE Transcribed Date/Time: 03/29/22 7:57 am * Exam Date Time Procedure Performing Provider Status 03/28/22 9:49 PM Chest 2 Views Frontal and Lat Jameel Pang; Mayda (Verified) Notes: (Chest 2 Views Frontal and Lat) Reason For Exam: Stroke;Other: RESULT: Chest 2 Views Frontal and Lat Chest 2 Views Frontal and Lat Reason: Stroke; Clinical Question(s): CHF COMPARISON: None. FINDINGS: LINES AND TUBES: None. LUNGS AND PLEURA: Increased pulmonary vascularity and obscuration of the left lung base suggestive of a small pleuraleffusion. No right pleural effusion. No pneumothorax. HEART, MEDIASTINUM AND MICHELLE: Heart is normal in size. Normal mediastinal and hilar contour. BONES AND SOFT TISSUES: No acute abnormality. IMPRESSION: Findings suggestive of mild pulmonary edema with a small left pleural effusion. I have personally reviewed the images and I agree with this report. WSN: [id number] Ordering Physician: Laci Dougherty Dictated By: Negro Ferrell DO Dictated Date/Time: 03/28/22 10:16 p Reviewed By: Carmelo Rosario MD Signed By: Carmelo Rosario MD Signed Date/Time: 03/28/22 10:21 pm Transcribed By: ZOE Transcribed Date/Time: 03/28/22 10:15 pm Vital Signs Most recent to oldest [Reference Range]: 1 2 3 Height 177.8 cm (05/01/22 8:01 AM) 177.8 cm (05/01/22 7:27 AM) 177.8 cm (05/01/22 6:31 AM) Weight 57.5 kg (04/24/22 12:58 PM) 67.4 kg (04/10/22 4:08 AM) 72.6 kg (03/29/22 3:17 AM) Oxygen Saturation [94-100 %] 97 % (05/01/22 8:01 AM) 99 % (05/01/22 7:27 AM) 99 % (05/01/22 6:31 AM) Pulse Rate [55-90 bpm] 78 bpm (05/01/22 8:01 AM) 76 bpm (05/01/22 7:27 AM) 73 bpm (05/01/22 6:31 AM) Blood Pressure [90-138/55-84 mm Hg] 116/55mm Hg (05/01/22 8:01 AM) 118/58mm Hg (05/01/22 7:27 AM) 136/58mm Hg (05/01/22 6:31 AM) Respiratory Rate [16-30 br/min] 18 br/min (05/01/22 8:01 AM) 16 br/min (05/01/22 7:27 AM) 16 br/min (05/01/22 6:31 AM) Temperature [96.8-100.4 DegF] 97.9 DegF (05/01/22 8:01 AM) 97.6 DegF (05/01/22 7:27 AM) 97.6 DegF (05/01/22 6:31 AM) Liters per Minute 0 L/min (04/08/22 9:13 PM) Mode of Delivery (Oxygen) Room air (05/01/22 8:01 AM) Room air (05/01/22 7:27 AM) Room air (05/01/22 6:31 AM) Blood pressure sites Arm, left (05/01/22 8:01 AM) Arm, left (05/01/22 7:27 AM) Arm, left (05/01/22 6:31 AM) Temperature Route Oral (05/01/22 8:01 AM) Oral (05/01/22 7:27 AM) Temporal (05/01/22 6:31 AM) Dry Weight 57.5 kg (04/24/22 12:59 PM) 72.6 kg (03/28/22 11:37 PM) Weight Obtained Via Bed scale (04/10/22 4:08 AM) Other: chart review (03/28/22 11:37 PM) Admission evaluation note * Janice LOPEZ, Mc: MODIFY, MODIFY, MODIFY, MODIFY, MODIFY, PERFORM Event Display: Admission Note Authored Date: Patient: ??ELDON LOWE ? Age:??81 Years?Sex:??Male?:??1940?? Chief Complaint/Reason for Consultation Tx from [facility] for stroke-like symptoms- numbness/weakness leading to a fall w/ ?head strike. C-spine cleared at [facility]. Now w/ increased R-sided weakness and aphasia. LKW ~10am, symptoms worsened ~1730 History of Present Illness 81 yo M w/ history of Hypertension, Hyperlipidemia, CAD s/p stent (unclear when, history obtained from patient's son Laci) who presented as a transfer from [facility]??after being found to have a??left MCA??stroke. ?? Vitals on presentation to the ED: Afebrile, heart rate 60, blood pressure 214/109, oxygen saturation 98% in room air. ?? History obtained from Fauzia and Laci patient's sons.?? Laci provide most of the history as he speaks [place]??and recommend fill in the gaps as he was present with his father??and witnessed??his symptoms.?? Laci states that his father??just arrived from [place] yesterday??to visit his family for??Kimberly.?? Fauzia states that??the patient woke up this morning with??right arm numbness??which??continued until around 11 AM??to 12 PM.?? Fauzia asked his father if he wanted to go the hospital but his father refused.?? The patient placed Bengay cream on his??right arm and??felt that it was improved.?? Around 5 PM,??Fauzia noticed that his father had right facial droop??and was unable to move his right upper extremity??or right??extremity.?? The patient tried to get up out of that??and fell face first hitting his nose.?? This is when his son Fauzia took him to [facility] to be evaluated.?? At [facility], he was noted to be aphasic with right hemiplegia and a stroke scale of 23. ??His CT imaging showed an MCA occlusion but he was out of the window for tPA. ??He was transferred to [facility] for possible neuro endovascular intervention ?? At [facility] ED, he was??alert but not answering questions at all. He had receptive as well as expressive aphasia.??Intermittently following commands.??He moves??his left arm and leg but does not movehis right arm or right leg at all. ??Does not hold his RUE or RLE up against gravity.?Has slightdrooping to the right side of his face. ?? At [facility], the patient had a CT perfusion scan and then was evaluated by Dr. Ruiz from neuro endovascular and Dr. Berman from neurology who??determined the patient not to be a thrombectomy candidate since risks might outweigh benefit and clot might be too distal. ??Dr. Schlaug recommended keeping the bed flat as this improved his symptoms, permissive hypertension up to 220 mmHg, full dose aspirin, and admission to the [facility]. ?? CBC showed mild anemia 13.6 hemoglobin, hematocrit 40. INR 1.0, PT 10.7, APTT 23.8.?? Review of Systems Unable to obtain complete ROS??due to patient's aphasia/mental status. Patient's son Laci reports no fevers, chills, sweats. No cough, congestion, rhinorrhea. No chest pain. No abdominal pain. No nausea. No vomiting. No diarrhea. No constipation. No diarrhea. No dysuria. No blood in stool + aphasia + RUE and RLE weakness Objective ? Vital Signs?? Temperature: 98.2 DegF (03/28/22 19:33:00) Temperature Route: Oral (03/28/22 19:33:00) Pulse Rate: 57 bpm (03/28/22 21:12:00) Respiratory Rate: 18 br/min (03/28/22 21:12:00) Systolic Blood Pressure:??193 mm Hg??High (03/28/22 21:12:00) Diastolic Blood Pressure:??92 mm Hg??High (03/28/22 21:12:00) Mean Arterial Pressure: 144 mm Hg (03/28/22 19:33:00) Pulse Pressure: 101 mm Hg (03/28/22 21:12:00) Oxygen Saturation: 97 % (03/28/22 21:12:00) Mode of Delivery (Oxygen): Room air (03/28/22 21:12:00) ? Pain Scores?? No qualifying data available. ? Physical Exam General:??Well-appearing. No acute distress HEENT:??Normocephalic. Atraumatic. PERRL. EOMI. Nares patent bilaterally.??Moist mucous membranes. Oropharynx is clear, without posterior erythema.?? Respiratory:??Lungs clear to auscultation bilaterally. No wheezes or crackles. Normal respiratory effort. Cardiovascular:??Regular rate and rhythm. S1, S2 normal. No murmurs. Peripheral pulses are 2+ bilaterally. Capillary refill is < 2 sec.?? Gastrointestinal:??Soft. Non-distended. Normoactive bowel sounds. Non-tender. No rebound or guarding.?? Musculoskeletal:??No LE edema. Pectus Excavatum. Skin:??Warm, dry. No rashes. Right supernumerary nipple. Neurological:??Alert, awake. Unable to move RUE and RLE 0/5 strength. Unable to assess sensation due to patient's mental status/aphasia. Patient speaking jumbled sounds, not intelligible to battery service technician or patient's son. Psych:??unable to assess mood, appropriate affect Assessment/Plan 81 yo M w/ history of Hypertension, Hyperlipidemia, CAD s/p stent (unclear when, history obtained from patient's son Laci) who presented as a transfer from [facility]??after being found to have a??left MCA??stroke. ?? Left MCA Stroke s/p aspirin 300mg CTA Head at [facility] showed occlusion of L M2 MCA Last known well 11am. He woke up with R arm numbness which seemed to have resolved around 11am - 12pm. Symptoms worsened acutely at 5 PM,??Fauzia noticed that his father had right facial droop??and wasunable to move his right upper extremity??or right??extremity.??The patient tried to get up out of that??and fell face first hitting his nose. Transferred to [facility] for possible thrombectomy. CT perfusion scan done at [facility] and patient was evaluated by Dr. Ruiz from neuro endovascular and Dr. Berman from neurology who??determined the patient is not a thrombectomy candidate sincerisks might outweigh benefit and clot might be too distal D-dimer low 0.71, Hgb A1c 6.1. Patient failed bedside swallow. Plan: Stroke Neurology following, recommendations??as below: - keep HOB flat and we will tolerated a SBP up to 220; - if SBP goes over 220, use Nicardipine drip - check fasting Lipid Panel - treat fever symptomatically and panculture when he develops fever - keep on Telemetry to rule out paroxysmal AFib - Echo ordered to rule out cardiac source of emboli - PMR consult, OT/PT/ST ?? Troponinemia High sensitivity Troponin 271. Patient aphasic and unable to express whether or not he has chest pain. Tronopin may be elevated in the setting of acute stroke, ELVIA,??or even blunt cardiac trauma from patient's fall, but due to the patient history of hypertension and hyperlipidemia and CAD s/p stent, there's concern for NSTEMI. EKG at [facility] was not concerning for ischemia. NSR Rate 63, LVH. QTc 472. Plan: - Trend Hs Troponin - Echo to check for any wall motion abnormalities - Cardiology Consult, f/u recs ?? Acute Kidney Injury Unclear baseline Cr a patient's patient's past medical history is limited May be prerenal in setting recent travel with poor PO intake. Plan: - Avoid nephrotoxic medications -??Continue??100cc/hr while NPO - F/u Urine Na+ - Bladder scan q8hrs to r/o obstruction ?? Hypokalemia K+ 3.5 on presentation Plan - replete K+ 20meq IV ?? Prediabetes Hgb A1c 6.1. Unclear if this is prediabetes vs well controlled Type II diabetes mellitu. Plan: - Hold off SSI while patient NPO ?? Medication reconciliation: Patient's children unsure of what medication patient's take, but state patient left box of pills at [facility]. [facility]Center called, no medications documented, and they state that the box of pills went back with the patient's family. ?? Diet: NPO DVT prophylaxis: Pneumatic compression boots for 24hrs, then SubQ heparin (neuro recs) Code Status: Full Code ?? Mc Camacho MD MedPeds PGY-2 [facility]??& [place] [phone] ?? Plan discussed with attending, ??Kelsey Chappell ?? (This note was dictated using UCAN software and is prone to errors during interpretation. Any typographical/grammatical errors were not deliberate and please contact me directly for clarifications via pager or Cortext) ? Histories Allergies Allergies ?(Active and Proposed Allergies Only) NKA? (Severity: Unknown severity, Onset: Unknown) ? Past Medical History/Problem List Hypertension Hyperlipidemia Coronary artery disease s/p stent ? Past Surgical History Unknown. ? Social History No alcohol, tobacco, or illicit drug use. ? Family History Unknown. ? Medications Home Medications Family do not know which medications patient takes. [facility] did not document medications. ? Results Recent Labs BLOOD COUNT & DIFF ?? WBC ?? 8.9 k/mm3 ()? 03/28/2022 19:45 ?? RBC ?? 4.33 m/mm3 (Low)? 03/28/2022 19:45 ?? Hgb ?? 13.6 Gm/dL (Low)? 03/28/2022 19:45 ?? Hct ?? 40.0 % (Low)? 03/28/2022 19:45 ?? MCV ?? 92.4 femtoliters ()? 03/28/2022 19:45 ?? MCH ?? 31.4 pg ()? 03/28/2022 19:45 ?? MCHC ?? 34.0 g/dL ()? 03/28/2022 19:45 ?? Platelet Count ?? 205 k/mm3 ()? 03/28/2022 19:45 ?? RDW-SD ?? 42.9 femtoliters ()? 03/28/2022 19:45 ?? MPV ?? 11.6 femtoliters ()? 03/28/2022 19:45 ?? Nucleated RBC (Automated) ?? 0.0 #/100 WBC'S ()? 03/28/2022 19:45 ?? Abs. NRBC ?? 0.0 k/mm3 ()? 03/28/2022 19:45 ?? Abs. Neut ?? 7.4 k/mm3 (High)? 03/28/2022 19:45 ?? Abs. Lymph ?? 0.7 k/mm3 (Low)? 03/28/2022 19:45 ?? Abs. Churchill ?? 0.5 k/mm3 ()? 03/28/2022 19:45 ?? Abs. Eo ?? 0.2 k/mm3 ()? 03/28/2022 19:45 ?? Abs. Baso ?? 0.0 k/mm3 ()? 03/28/2022 19:45 ?? Neut % ?? 83.0 % (High)? 03/28/2022 19:45 ?? Lymph % ?? 8.3 % (Low)? 03/28/2022 19:45 ?? Churchill % ?? 5.3 % ()? 03/28/2022 19:45 ?? Eos % ?? 2.6 % ()? 03/28/2022 19:45 ?? Baso % ?? 0.5 % ()? 03/28/2022 19:45 ?? Imm Gran ?? 0.3 % ()? 03/28/2022 19:45 ?? Abs. Imm Gran ?? 0.0 k/mm3 ()? 03/28/2022 19:45 ? COAG ?? INR ?? 1.0 ()? 03/28/2022 19:45 ?? Protime (PT) ?? 10.7 seconds ()? 03/28/2022 19:45 ?? APTT ?? 23.8 seconds (Low)? 03/28/2022 19:45 ? HEME OTHER ?? Hold Lavender Top ?? SPECIMEN DISCARDED AFTER 24 HOURS. ()? 03/28/2022 19:45 ?? Hold Blue Top ?? SPECIMEN DISCARDED AFTER 4 HOURS. ()? 03/28/2022 19:45 ? MISC. CHEMISTRY ?? Hold Green Top ?? SPECIMEN DISCARDED AFTER 1 WEEK ()? 03/28/2022 19:45 ? * Misti LOPEZ, Camille Barron: PERFORM Event Display: Admission Note Authored Date: [id number] Attending attestation.??Patient seen and examined on Mar 28. Reviewed FELIX MAGALLON. I have independently examined the patient and confirmed physical exam findings. Agree with assessment and plan as outlined in Dr. Camacho's note. ?? 81-year-old man with history of hypertension, CAD presents as a transfer from [facility] for stroke and potential thrombectomy. Last known well was 11 AM after which he developed right arm numbness that resolved within an hour however at 5 PM he was complaining of numbness in the right side of the face and right upper extremity and then fell to the ground hitting the right side of hisface. At [place] he was noted to be aphasic with right hemiplegia and NIHSS of 23. CT imaging showed MCA occlusion but he was out of the window for tPA. He was transferred here for possible neuro endovascular intervention. Upon presentation he was afebrile, blood pressure 214/109. Labs notable for normal white cell count with left shift. Hemoglobin 13.6, hematocrit 40. Rest of the labs pending. He was evaluated by neuro endovascular specialist and neurologist and was not determined to be a thrombectomy candidate after the patient underwent CT perfusion scan. He was felt not to be a thrombectomy candidate at this time as the area is too distal for intervention and the small mismatch volume is not worth the risk of intervention. Later on his HS Troponin came back elevated at 271. EKG with??T inv in lateral leads but also has LVH with repolarization changes. Cardiology consult. Echo??to assess both wall motion abnormalities and to evaluate for embolic source??for stroke.? EKG study * Event Display: ECG 12-Lead Authored Date: Please click on pdf link to open report * Event Display: ECG 12-Lead Authored Date: Ventricular Rate: 62 BPM Atrial Rate: 62 BPM P-R Interval: 166 ms QRS Duration: 106 ms Q-T Interval: 448 ms QTC Calculation(Bazett): 454 ms P Harrison: 68 degrees R Harrison: 11 degrees T Harrison: 157 degrees Normal sinus rhythm Left ventricular hypertrophy with repolarization abnormality Inferior infarct (cited on or before 28-MAR-2022) Abnormal ECG When compared with ECG of 28-MAR-2022 19:34, No significant change was found Confirmed by STACIE RODRIGUEZ ([id number]) on 04/01/2022 1:29:55 PM [place]: STACIE RODRIGUEZ * Event Display: ECG 12-Lead Authored Date: [id number] Please click on pdf link to open report * Event Display: ECG 12-Lead Authored Date: [id number] Ventricular Rate: 63 BPM Atrial Rate: 63 BPM P-R Interval: 150 ms QRS Duration: 112 ms Q-T Interval: 462 ms QTC Calculation(Bazett): 472 ms P Harrison: 74 degrees R Harrison: 1 degrees T Harrison: 118 degrees Normal sinus rhythm with sinus arrhythmia Left ventricular hypertrophy with repolarization abnormality ( R in aVL , Sokolow-Lopez , [place] product , Romhilt-Woodruff ) Inferior infarct , age undetermined Abnormal ECG No previous ECGs available Confirmed by SCOTT MARCOS MD ([id number]) on 03/29/2022 1:12:44 PM [place]: SCOTT MARCOS MD Heart * Event Display: Echocardiogram - Complete Authored Date: [id number] Transthoracic Echocardiography Report (TTE) Patient Demographics Patient Name MEL BUSTAMANTE, Date of Study 03/29/2022 ELDON Hodge Gender Male Facility Race Ethnicity or Date of 1940 Height: 69.69 inches Age 81 year(s) Weight: 160.94 pounds Accession Number [id number] BSA: 1.9 m2 Room Number D521 BMI: 23.3 kg/m2 Referring Physician Janice Bentley MD Interpreting Jameel Davis Physician Corporate Director Of Pharmacy Naya Lara RCS Indications CVA. Clinical History Hypertension. Hyperlipidemia. CAD. Previous stent. Study Data Type of Study TTE procedure:Echo Complete-Doppler, Colorflow, M-Mode. Study Date03/29/2022 Start Time: 06:45 AM Study Location: [facility] [place] Echo Study Status: ICU/CCU Patient Status: Routine Technical Quality: Fair Blood Pressure:183/92 mmHg EKG: Within normal limits HR: 82 bpm 2D Measurements LV Diastolic Dimension: 3.52 cm LV Systolic Dimension: 2.27 cm LV Septum Diastolic: 1.66 cm LV PW Diastolic: 1.4 cm AO Root Dimension: 3.2 cm LA Dimension: 3.2 cm LA ESV (BP):39.5 ml LVOT Stroke Volume: 77.89 ml LA ESV Index: 21 ml/m2 Stroke Volume Index40.99 ml/m2 LVOT: 2.1 cm Cardiac Index:3.36 l/min/m2 Ascending Aorta:3.1 cm Doppler Measurements AV Peak Velocity: 114 cm/s MV Peak E-Wave: 45.1 cm/s AV Peak Gradient: 5.2 mmHg MV Peak A-Wave: 93.9 cm/s AV Mean Gradient: 3 mmHg MV E/A Ratio: 0.48 AV VTI:23.3 cm LVOT Peak Velocity: 119 cm/s LVOT VTI22.5 cm MV Deceleration Time: 229 msec AV Area (Continuity):3.34 cm2 PV Peak Velocity: 117 cm/s PV Peak Gradient: 5.48 mmHg E' Septal Velocity: 5.44 cm/s E' Lateral Velocity: 5.44 cm/s E/Med E':8.884313 E/Lat E':8.999929 Cardiac Anatomy Left Ventricle/Interventricular Septum The left ventricle is small. There is severe asymmetric septal hypertrophy (18 mm) with mildly increased LV wall thickness elsewhere. Overall left ventricular systolic function is normal. LVEF 55-60%. There is abnormal septal motion consistent with conduction abnormality. Grade I diastolic dysfunction with normal left atrial pressure. Left Atrium/Interatrial Septum The left atrium is normal in size. Aortic Valve The aortic valve is poorly visualized. The aortic valve appears moderately calcified. No significant aortic stenosis or regurgitation. Mitral Valve The mitral valve is poorly visualized. No significant mitral stenosis or regurgitation. The posteromedial papillary muscle is hypertrophied. Aorta The ascending aorta and aortic root are normal in size. Right Ventricle The right ventricle is normal in size and systolic function. Right Atrium The right atrium is normal in size. Pulmonic Valve The pulmonic valve is poorly visualized. Tricuspid Valve The tricuspid valve is poorly visualized. Pumonary Artery Unable to estimate pulmonary artery systolic pressure. There is no evidence of pulmonary hypertension. Venous Structures The inferior vena cava size is normal with normal inspiratory collapse. The central venous pressure estimation is normal, 3mmHg. Pericardium/Extracardiac There is no significant pericardial effusion. Summary Technically difficult study. The left ventricle is small. There is severe asymmetric septal hypertrophy (18 mm) with mildly increased LV wall thickness elsewhere. Overall left ventricular systolic function is normal. LVEF 55-60%. There is abnormal septal motion consistent with conduction abnormality. Grade I diastolic dysfunction with normal left atrial pressure. The posteromedial papillary muscle is hypertrophied. The right ventricle is normal in size and systolic function. Normal biatrial size. No obvious valve dysfunction on available images. The central venous pressure estimation is normal, 3mmHg. There is no evidence of pulmonary hypertension. Impressions If clinical concern for hypertrophic (or infiltrative) cardiomyopathy, consider cardiac MRI. Comparison No prior study available for comparison. Signature * Event Display: Echocardiogram - Complete Authored Date: [id number] US.doppler Carotid arteries - bilateral * Event Display: VL Carotid Duplex Scan Bilat Authored Date: [id number] Status:Open Carotid Duplex Study Demographics Procedure Information Patient name: MEL COLÓN Procedure date: 04/03/2022 2:54 PM Corporate Proc. sub type: Cerebral: Carotid, Carotid Duplex Scan Bilateral. Gender: Male Accession No: [id number] Date of : 1940 Account No: [id number] Age: 81 year(s) Admit Status: Inpatient Facility: [facility] Procedure Staff Study location: [facility] Vascular Lab Ordering physician: Gopal ARMIJO Referring Physician: Gopal ARMIJO Procedure consent obtained: Not on Staff Referring MD No Admitting Physician: Camille Chappell MD Attending Physician: ADIA Alamo Corporate Director Of Pharmacy: Cinthia Cody RDPA RVT Interpreting physician: Arron Garay MD Indications CVA. Carotid Diagram Right Left The diagram is not intended for diagnosis. It is provided for reference only. Carotid Procedure Findings Right Left PSV EDV Angle Plaque PSV EDV Angle Plaque Location (cm/s) (cm/s) (Degree) Characteristics (cm/s) (cm/s) (Degree) Characteristics Prox CCA 78.4 14.8 58 86.4 23 60 Dist CCA 91.8 18.5 58 67.1 22.4 60 Bulb 58.1 18.3 62 Homogeneous 48.2 14.5 60 Homogeneous Prox ICA 60.4 24.6 60 Homogeneous 448 180 60 Homogeneous Mid ICA 105 41.3 60 122 25.9 60 Dist ICA 87.5 29.5 60 64.3 37.6 60 Prox ECA 93.4 60 Homogeneous 201 60 Heterogeneous Vertebral 77.6 17.7 60 60.9 15.7 60 Prox 136 60 150 58 Subclavian Right ICA/CCA ratio: 1.14 Right verterbral flow: Antegrade Left ICA/CCA ratio: 6.68 Left verterbralflow: Antegr Physician Conclusions Summary: Right Side: 1-49% stenosis in the Internal Carotid Artery. Antegrade flow in the Vertebral Artery. Biphasic flow is seen in the Subclavian Artery. Left Side: 70-99% stenosis in the Internal Carotid Artery. Antegrade flow in the Vertebral Artery. Biphasic flow is seen in the Subclavian Artery. Recommendations: A CTA for correlation could be performed if clinically indicated. * Event Display: VL Carotid Duplex Scan Bilat Authored Date: [id number] Note * Kasia Shankar RN: PERFORM Event Display: Discharge/Transfer Note Hospital Authored Date: [id number] Nursing Discharge Note Entered On: 05/01/2022 11:37 EST Performed On: 05/01/2022 11:36 EST by Kasia Shankar RN Nursing Discharge Note 2 Discharge Time : 05/01/2022 11:15 EST Discharge Level of Care at Discharge : Inpatient Rehab Facility/Unit Discharge Nursing Homes/Rehab Facilities : [facility] Patient Left Unit Via : Ambulance Patient Accompanied Off Unit with : Ambulance/Chair Van Personnel Handover Given to Transport Personnel : Yes DC Instructions Provided & Signed by Pt : No Patient Understands D/C Instructions : No Verbalized Understanding of D/C Plan By : Family Patient Instructions Discharge Signed : No Instructions for Discharge Comments : pt d/c to rehab Discharge Comments : pt d/c to rehab with izquierdo cath. No iv access on pt. Did Pt have Specialty Bed or Wound Vac : No Vonnie SÁNCHEZ, Kasia - 05/01/2022 11:36 EST * Naty LOPEZ, [facility]: PERFORM Event Display: Discharge/Transfer Note Hospital Authored Date: [id number] Patient: ??ELDON LOWE ? Age:??81 Years?Sex:??Male?:??1940?? Patient Information Discharge Location: D5A Primary Care Physician: Not on Staff, PCP Admit Date/Time: 03/28/22 21:23 Discharge Disposition Discharge Disposition: ?? 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 _ Discharge Medications Amlodipine (amLODIPine 10 mg oral tablet)?10?Milligram?1?tablet?By Mouth?Daily Aspirin (aspirin 81 mg oral delayed release tablet)?81?Milligram?1?tablet?By Mouth?Daily Atorvastatin (atorvastatin 80 mg oral tablet)?1?tab(s)?80?Milligram?By Mouth?Daily at bedtime Carvedilol (Coreg 12.5 mg oral tablet)?12.5?Milligram?1?tablet?By Mouth?2 times aday Cholecalciferol ((Vitamin D3) ??Cholecalciferol 400 HALFWAY units/mL oral syringe 1 mL)?10?Microgram?By Mouth?Daily Docusate-Senna (Docusate/Senna Tablet)?2?tab(s)?By Mouth?Daily?as needed?Constipation hydrALAZINE (hydrALAZINE 25 mg oral tablet)?100?Milligram?4?tablet?By Mouth?3 times a day Mirtazapine (mirtazapine 15 mg oral tablet)?1?tab(s)?15?Milligram?By Mouth?Daily at bedtime Miscellaneous Rx (oral supplement)?See Instructions?0.7 KCal/ml high protein1 bottle TID withmeals. vanilla Ocular Lubricant (Artificial Tears 1.4%)?1 drop?Eye, Left?3 times a day?as needed?Other?Dryness. Thiamine (thiamine 100 mg oral tablet)?100?Milligram?1?tablet?By Mouth?Daily ? Quality Measures Stroke Quality Measures:?Discharged on Antithrombotic Therapy:??Active Home Medication for Antithrombotic ?? Tobacco Use Treatment:? Medications Started Amlodipine (amLODIPine 10 mg oral tablet)?10?Milligram?1?tablet?By Mouth?Daily Aspirin (aspirin 81 mg oral delayed release tablet)?81?Milligram?1?tablet?By Mouth?Daily Atorvastatin (atorvastatin 80 mg oral tablet)?1?tab(s)?80?Milligram?By Mouth?Daily at bedtime Carvedilol (Coreg 12.5 mg oral tablet)?12.5?Milligram?1?tablet?By Mouth?2 times aday Cholecalciferol ((Vitamin D3) ??Cholecalciferol 400 HALFWAY units/mL oral syringe 1 mL)?10?Microgram?By Mouth?Daily Docusate-Senna (Docusate/Senna Tablet)?2?tab(s)?By Mouth?Daily?as needed?Constipation hydrALAZINE (hydrALAZINE 25 mg oral tablet)?100?Milligram?4?tablet?By Mouth?3 times a day Mirtazapine (mirtazapine 15 mg oral tablet)?1?tab(s)?15?Milligram?By Mouth?Daily at bedtime Miscellaneous Rx (oral supplement)?See Instructions?0.7 KCal/ml high protein1 bottle TID withmeals. vanilla Ocular Lubricant (Artificial Tears 1.4%)?1 drop?Eye, Left?3 times a day?as needed?Other?Dryness. Thiamine (thiamine 100 mg oral tablet)?100?Milligram?1?tablet?By Mouth?Daily Medications Discontinued Lisinpril Allergies Allergies ?(Active and Proposed Allergies Only) NKA? (Severity: Unknown severity, Onset: Unknown) ? PCP Follow-Up/Heads-Up Patient will need head CT??within 1 to 2 weeks Will need follow-up with neurology Last lab done??on 04/26, consider getting lab in few days Future Appointments Friday 12:30 PM EST ?? With: Antonella LOPEZ, Marybel Where: [facility] Neurology [address], [address] [place] [id number]- Friday 12:45 PM EST ?? With: Gregoria SORIA, Janie Where: [facility] Cardiology [address] [place] [address]- Hospital Course 81-year-old man with history of hypertension, CAD presents as a transfer from [facility] 03/28 for stroke and potential thrombectomy. He was reviewed by Neurology and it was decided to not pursue thrombectomy and he was admitted to the [facility]. His high sensitivity troponin was elevated which was felt to be related to his acute stroke He was found to have evolution of the MCA stroke and early hemorrhagic transformation of parietal stroke. Patient's hospital course has??been complicated by poor oral intake??requiring temporary NG tube feeds which is now improving His R sided motor strength??is beginning??to??improve and??he is now ready??to be transferred to rehab ? Left MCA Stroke hemorrhagic transformation CTA Head at [place] showed occlusion of L M2 MCA Last known well 11am on date of admission. He woke up with R arm numbness which seemed to have resolved around 11am - 12pm. Symptoms worsened acutely at 5 PM, Fauzia (son)??noticed that his father had right facial droop and was unable to move his right upper extremity or right extremity. The patient tried to get up out of that and fell face first hitting his nose. Transferred to [facility] for possible thrombectomy. CT perfusion scan done at [facility] and patient was evaluated by Dr. Ruiz from neuro endovascular and Dr. Berman from neurology who determined the patient is not a thrombectomy candidate since risks might outweigh benefit and clot might be too distal Follow-up CT 03/29 showing right MCA cytotoxic edema and early hemorrhagic transformation of parietal stroke 04/01: MRI stable 04/03: Bilateral Doppler performed, showing no clot, stable, no inpatient procedure recommended forpossible dissection, Neurology has signed off Patient has had some improving R sided weakness No atrial fibrillation on telemetry ?? -Continue hydralazine , Coreg, amlodipine aspirin -atorvastatin increased to??80mg daily -will need outpatient monitor - cardiology??to arrange zio patch -Follow-up with Neurology as outpatient - Dr Berman- sent neuro team in discharge to arrange a follow up -Neurology are recommending CTA head/neck in 4-6 weeks-??to be done wihin 1-2 w from discharge ?? Malnutrition Poor p.o. intake due to stroke At one point was requiring tube feeds -Continue??mirtazapine -Appetite has improved, especially when family bring in food from home -Continue oral supplements as recommended by regional flatbed truck driver ?? Troponinemia Related to his stroke Echo with normal EF -Seen by Cardiology - did not recommend ischemic work-up at this time -Consider outpatient work-up for ischemia -Continue aspirin, beta-naida, statin -lisinopril held for elevated k ?? Acute Kidney Injury: resolved. ?? COVID positive on 04/08- came off enhanced precautions on 04/18/22 Borderline hyperkalaemia: will hold lisinopril Prediabetes: Hgb A1c 6.1. patient has not been requiring any insulin ? Objective Vital Signs?? Temperature: 97.6 DegF (05/01/22 06:31:00) Temperature Route: Temporal (05/01/22 06:31:00) Pulse Rate: 73 bpm (05/01/22 06:31:00) Respiratory Rate: 16 br/min (05/01/22 06:31:00) Systolic Blood Pressure: 136 mm Hg (05/01/22 06:31:00) Diastolic Blood Pressure: 58 mm Hg (05/01/22 06:31:00) Blood pressure sites: Arm, left (05/01/22 06:31:00) Mean Arterial Pressure: 84 mm Hg (05/01/22 06:31:00) Pulse Pressure: 78 mm Hg (05/01/22 06:31:00) Oxygen Saturation: 99 % (05/01/22 06:31:00) Mode of Delivery (Oxygen): Room air (05/01/22 06:31:00) Early Warning Score: 2 (05/01/22 06:35:47) ? . Physical Exam General?NAD, AAO to person HEENT?PERRLA, oropharynx clear, moist mucus membranes Pulm?CTA bilaterally, no wheezes/rhonchi/rales CV?RRR, +S1/S2, no murmurs/rubs GI?Soft, nontender, nondistended, no organomegaly, bowel sounds are present Neuro?left upper extremity weakness??1/5, aphasia MS?no obvious deformity Psych?Mood appropriate to situation _ Pending Results Add On Lab Order ordered on 03/28/2022 COVID-19 (2019 Novel Coronavirus) PCR ordered on 04/08/2022 Patient Education Titles Stroke (Completed)?? Follow-Up Appointments Added Follow Up ?Time Frame ?Comments Marybelwilfredo Berman?05/08/2022 12:30 PCP Not on Staff Home Health Face to Face ^HomeHealthFTF Results Discharge Labs BLOOD BANK Blood Type B Positive ()?? 03/28/2022 20:34 Antibody Screen Negative ()?? 03/28/2022 20:34 ?? BLOOD COUNT & DIFF WBC 6.0 k/mm3 ()?? 04/24/2022 09:39 RBC 3.28 m/mm3 (Low)?? 04/24/2022 09:39 Hgb 10.3 Gm/dL (Low)?? 04/24/2022 09:39 Hct 30.9 % (Low)?? 04/24/2022 09:39 MCV 94.2 femtoliters (High)?? 04/24/2022 09:39 MCH 31.4 pg ()?? 04/24/2022 09:39 MCHC 33.3 g/dL ()?? 04/24/2022 09:39 Platelet Count 281 k/mm3 ()?? 04/24/2022 09:39 RDW-SD 44.8 femtoliters ()?? 04/24/2022 09:39 MPV 11.8 femtoliters ()?? 04/24/2022 09:39 Nucleated RBC (Automated) 0.0 #/100 WBC'S ()?? 04/24/2022 09:39 Abs. NRBC 0.0 k/mm3 ()?? 04/24/2022 09:39 Abs. Neut 6.3 k/mm3 ()?? 03/29/2022 04:47 Abs. Lymph 1.3 k/mm3 ()?? 03/29/2022 04:47 Abs. Churchill 0.6 k/mm3 ()?? 03/29/2022 04:47 Abs. Eo 0.2 k/mm3 ()?? 03/29/2022 04:47 Abs. Baso 0.0 k/mm3 ()?? 03/29/2022 04:47 Neut % 74.0 % ()?? 03/29/2022 04:47 Lymph % 15.6 % ()?? 03/29/2022 04:47 Churchill % 6.9 % ()?? 03/29/2022 04:47 Eos % 2.7 % ()?? 03/29/2022 04:47 Baso % 0.4 % ()?? 03/29/2022 04:47 Imm Gran 0.4 % ()?? 03/29/2022 04:47 Abs. Imm Gran 0.0 k/mm3 ()?? 03/29/2022 04:47 ?? CARDIAC High Sensitivity Troponin (HSTnT) 226 ng/L (Critical)?? 03/29/2022 04:47 ? CHEM GENERAL Sodium 136 mmol/L ()?? 04/26/2022 03:35 Potassium 4.6 mmol/L ()?? 04/26/2022 03:35 Chloride 101 mmol/L ()?? 04/26/2022 03:35 Bicarbonate Level 26 mmol/L ()?? 04/26/2022 03:35 Anion Gap 9 ()?? 04/26/2022 03:35 Glucose Level 92 mg/dL ()?? 04/26/2022 03:35 Glucose, POC 139 mg/dL (High)?? 04/28/2022 10:34 Hemoglobin A1C (Monitoring) 6.1 % (High)?? 03/28/2022 19:45 BUN 31 mg/dL (High)?? 04/26/2022 03:35 Creatinine-Blood 1.0 mg/dL ()?? 04/26/2022 03:35 Estimated GFR Creatinine 78 ML/MIN/1.73 M2 ()?? 04/26/2022 03:35 Calcium 9.5 mg/dL ()?? 04/26/2022 03:35 Calcium, Ionized pH Corrected 1.23 mmol/L ()?? 04/16/2022 01:17 Phosphorus 3.6 mg/dL ()?? 04/24/2022 09:39 Magnesium 2.2 mg/dL ()?? 04/24/2022 09:39 AST (SGOT) 19 units/L ()?? 03/28/2022 19:45 ?? COAG INR 1.0 ()?? 03/28/2022 19:45 Protime (PT) 10.7 seconds ()?? 03/28/2022 19:45 APTT 23.8 seconds (Low)?? 03/28/2022 19:45 D-Dimer 0.61 mg/L FEU ()?? 04/03/2022 13:23 ?? HEME OTHER Hold Lavender Top SPECIMEN DISCARDED AFTER 24 HOURS. ()?? 04/26/2022 03:35 Hold Blue Top SPECIMEN DISCARDED AFTER 4 HOURS. ()?? 03/28/2022 19:45 ?? LIPID STUDIES Cholesterol 138 mg/dL ()?? 03/29/2022 01:08 Triglycerides 93 mg/dL ()?? 03/29/2022 01:08 HDL Cholesterol 50 mg/dL ()?? 03/29/2022 01:08 LDL Cholesterol 69 mg/dL ()?? 03/29/2022 01:08 Non HDL Cholesterol 88 mg/dL ()?? 03/29/2022 01:08 ? MISC. CHEMISTRY Hold Green Top SPECIMEN DISCARDED AFTER 1 WEEK ()?? 03/28/2022 19:45 ? UA/URINALYSIS Appear/Color, Urine COLORLESS ()?? 03/30/2022 12:30 Specific [place], Urine 1.018 ()?? 03/30/2022 12:30 pH, Urine 7.0 ()?? 03/30/2022 12:30 Albumin, Urine TRACE (Abnormal)?? 03/30/2022 12:30 Glucose, Urine NEGATIVE ()?? 03/30/2022 12:30 Ketones, Urine NEGATIVE ()?? 03/30/2022 12:30 Bilirubin, Urine NEGATIVE ()?? 03/30/2022 12:30 Hemoglobin, Urine NEGATIVE ()?? 03/30/2022 12:30 Nitrite, Urine NEGATIVE ()?? 03/30/2022 12:30 Leukocyte, Urine NEGATIVE ()?? 03/30/2022 12:30 Urobilinogen NORMAL mg/dL ()?? 03/30/2022 12:30 WBC's, Urine NONE SEEN /HPF ()?? 03/30/2022 12:30 RBC's, Urine 2 /HPF ()?? 03/30/2022 12:30 Mucus SLIGHT /LPF ()?? 03/30/2022 12:30 Hold Urine Culture Testing available 48 hours from time of collection. ()?? 03/30/2022 12:30 ? URINE OTHER Sodium, Urine Random 166 mmol/L ()?? 03/30/2022 12:30 ? VIROLOGY COVID-19 PCR Specimen Source NASAL ()?? 04/08/2022 03:25 COVID-19 PCR Result POSITIVE (Abnormal)?? 04/08/2022 03:25 ? > 35 minutes spent on discharge * Vonnie SÁNCHEZ, Kasia: PERFORM Event Display: Patient Education/Instruction Authored Date: [id number] Inpatient Adult Discharge Instructions [place] [id number] Name: ELDON BUSTAMANTE : 1940 Visit: 03/28/2022 21:23:00 Current Date: 05/01/2022 08:49 Account: [id number] Inpatient Adult Discharge Instructions We would like to thank you for allowing us to assist you with your healthcare needs. The following includes patient education materials and information regarding your injury/illness. Our entire staffstrives to provide an excellent experience for our patients and their families. PLEASE ENSURE YOU FOLLOW-UP PER THE INSTRUCTIONS BELOW! ?? YOUR OPINION IS IMPORTANT TO US! Please complete the survey you may receive by mail or email. Your feedback will be used to make improvements to the healthcare experiences of our patients and their families. Surveys are administered by [employer] ?? If further treatment with your primary care physician or another doctor is recommended, it is important for you to keep the appointment. Call your primary care physician or return to the Emergency Department immediately if your condition worsens, fails to improve, or new symptoms develop. If you need to find a doctor, you can call [facility] for a referral at [phone] or toll free at [phone]) or log in to [email or web address] ?? You can view and manage your care through the patient portal or by using a health care marva of your choosing. [employer] is a website that allows you to securely view your medical information including your hospital discharge summary, office visit summaries, medications and follow-up visits. You can also request appointments, renew medications, and request access to your medical information using a health care marva of your choosing, or just ask a question. You can enroll at [email or web address] or register during your next office visit. You have been discharged from [facility], Patient Care Unit: S3. If you have any questions regarding these instructions after you leave, please call us and we will be happy to assist you. [facility] Your Care Team Attending Physician Naty LOPEZ, Kostas Consulting Providers Naty LOPEZ, Kostas; Antonella LOPEZ, Marybel; Ronal LOPEZ, Mata; Mike Cornejo MD, Clemente Denton;Nemesio LOPEZ, Vignesh; Gabriela LOPEZ, Farooq; Maxim LOPZE, Norman Diaz MD Discharging Providers Naty LOPEZ, Kostas Reason for Admission Tx from [facility] for stroke-like symptoms- numbness/weakness leading to a fall w/ ?head strike. C-spine cleared at [facility]. Now w/ increased R-sided weakness and aphasia. LKW ~10am, symptoms worsened ~1730 Your Diagnosis Acute right MCA stroke Hypertension, unspecified type Coronary artery disease involving [place] coronary artery of [place] heart without angina pectoris Troponin level elevated Impaired mobility and ADLs Other specified health status Dysarthria Aphasia Oropharyngeal dysphagia Right hemiplegia COVID-19 Tests Performed Below is a partial list of the tests performed during your hospitalization. You may have had other tests and procedures not included in this list. Please discuss all test results with your provider. AST Basic Metabolic Panel Blood Urea Nitrogen BUN Calcium Ionized CBC CBC w/ Differential Creatinine D Dimer Electrolytes GLUCOSE POC H + H Hemoglobin A1c, (Diagnostic) High??Sensitivity??Troponin T HOLD BLUE TUBE HOLD GREEN TUBE HOLD LAVENDER TUBE Lipid Panel Lipid Panel Non Fasting Lytes Magnesium Level Mg Level Phosphorus Level PT (INR) PTT Sodium Urine Troponin T, High Sensitivity Type and Screen Urinalysis w/hold for Urine Culture Brain CT W/O Contrast CT Perfusion MRI Brain W/O Contrast XR Chest 2 Views Frontal and Lat XR Chest Portable Primary Care Provider Not on Staff, PCP Advance Directive Health Care Proxy on File Yes - Health Care Proxy No qualifying data available. Discharge Vitals Temperature: 97.9 DegF Height: 177.8 cm Pulse Rate: 78 bpm Weight: 57.5 kg Respiratory Rate: 18 br/min ?? Systolic Blood Pressure: 116 mm Hg ?? Diastolic Blood Pressure: 55 mm Hg ?? Oxygen Saturation: 97 % ?? Studies Pending All tests and labs ordered during this hospital stay have been completed unless listed below. Please discuss all pending results with your provider listed above in these instructions. ?? Add On Lab Order COVID-19 (2019 Novel Coronavirus) PCR What to do next Instructions From Your Doctor Discharge Orders Scheduled Follow-Up Appointments Friday 12:30 PM EST ?? With: Marybel Berman MD Where: [facility] Neurology [address] [place] [id number]- Friday 12:45 PM EST ?? With: Janie Kinney NP Where: [facility] Cardiology [address] [place] [id number]- You Need to Schedule the Following Appointments Follow Up with??Marybel Berman When??05/08/2022 12:30 PM EST Where: [address] [place] [address], [address] [place] [phone]- Business (1) Follow Up with??PCP Not on Staff When??In 0 days Discharge Medications ELDON LOWE :1940 Visit Date:03/28/2022 Medications: Please continue your medications until treatment is completed or stopped by your provider. Medications not listed below should be discontinued. Discuss any questions related to medications with your provider. What How Much When Instructions Next Dose New Amlodipine (amLODIPine 10 mg oral tablet) 1 tab(s) Oral Daily 05/02 in am New Carvedilol (Coreg 12.5 mg oral tablet) 1 tab(s) Oral Twice a day 05/01 in pm New Docusate-Senna (Docusate/ Senna Tablet) 2 tab(s) Oral Daily as needed for Constipation as needed New hydrALAZINE (hydrALAZINE 25 mg oral tablet) 4 tab(s) Oral 3 times a day 05/01 at 3pm New Mirtazapine (mirtazapine 15 mg oral tablet) 1 tab(s) Oral Daily at Bedtime 05/01 in pm New Miscellaneous Rx (oral supplement) See instructions 0.7 KCal/ ml high protein 1 bottle TID with meals. vanilla ?? with meals New Ocular Lubricant (Artificial Tears 1.4%) 1 drop Left eye 3 times a day as needed for Other Dryness. ?? as needed New Thiamine (thiamine 100 mg oral tablet) 1 tab(s) Oral Daily 05/02 in am Changed Atorvastatin (atorvastatin 80 mg oral tablet) 1 tab(s) Oral Daily at Bedtime 05/01 in pm Unchanged Aspirin (aspirin 81 mg oral delayed release tablet) 1 tab(s) Oral Daily 05/02 in am Unchanged Cholecalciferol ((Vitamin D3) Cholecalciferol 400 HALFWAY units/ mL oral syringe 1 mL) 10 Microgram Oral Daily 05/02 in am ?? What How Much When Comments Stop Taking Hydrochlorothiazide (hydrochlorothiazide 25 mg oral tablet) 1 tab(s) Oral Daily Test Results Below is a partial list of the most recent Laboratory test results done prior to this discharge. You may have had other tests and procedures not included in this list. Please discuss all test resultswith your provider. AST (03/28/2022) ???AST (SGOT) - 19 units/L Basic Metabolic Panel (04/26/2022) ???Sodium - 136 mmol/L???Potassium - 4.6 mmol/L???Chloride - 101 mmol/L???Bicarbonate Level - 26 mmol/L???Anion Gap - 9???Glucose Level - 92 mg/dL???BUN - 31 mg/dL???Creatinine-Blood - 1.0 mg/dL???Estimated GFR Creatinine - 78 ML/MIN/1.73 M2???Calcium - 9.5 mg/dL Blood Urea Nitrogen (04/20/2022) ???BUN - 34 mg/dL BUN (04/11/2022) ???BUN - 38 mg/dL Calcium Ionized (04/16/2022) ???Calcium, Ionized pH Corrected - 1.23 mmol/L CBC (04/24/2022) ???WBC - 6.0 k/mm3???RBC - 3.28 m/mm3???Hgb - 10.3 Gm/dL???Hct - 30.9 %???MCV - 94.2 femtoliters???MCH - 31.4 pg???MCHC - 33.3 g/dL???Platelet Count - 281 k/mm3???RDW-SD - 44.8 femtoliters???MPV - 11.8 femtoliters???Nucleated RBC (Automated) - 0.0 #/100 WBC'S???Abs. NRBC - 0.0 k/mm3 CBC w/ Differential (03/29/2022) ???WBC - 8.5 k/mm3???RBC - 4.29 m/mm3???Hgb - 13.5 Gm/dL???Hct - 39.5 %???MCV - 92.1 femtoliters???MCH - 31.5 pg???MCHC - 34.2 g/dL???Platelet Count - 208 k/mm3???RDW-SD - 42.5 femtoliters???MPV - 11.5 femtoliters???Nucleated RBC (Automated) - 0.0 #/100 WBC'S???Abs. NRBC - 0.0 k/mm3???Abs. Neut - 6.3 k/mm3???Abs. Lymph - 1.3 k/mm3???Abs. Churchill - 0.6 k/mm3???Abs. Eo - 0.2 k/mm3???Abs. Baso - 0.0 k/mm3???Neut % - 74.0 %???Lymph % - 15.6 %???Churchill % - 6.9 %???Eos % - 2.7 %???Baso % - 0.4 %???Imm Gran - 0.4 %???Abs. Imm Gran - 0.0 k/mm3 Creatinine (04/20/2022) ???Creatinine-Blood - 1.2 mg/dL???Estimated GFR Creatinine - 65 ML/MIN/1.73 M2 D Dimer (04/03/2022) ???D-Dimer - 0.61 mg/L FEU Electrolytes (04/20/2022) ???Sodium - 132 mmol/L???Potassium - 5.2 mmol/L???Chloride - 96 mmol/L???Bicarbonate Level - 26 mmol/L???Anion Gap - 10 GLUCOSE POC (04/28/2022) ???Glucose, POC - 139 mg/dL H + H (04/15/2022) ???Hgb - 11.8 Gm/dL???Hct - 34.4 % Hemoglobin A1c, (Diagnostic) (03/28/2022) ???Hemoglobin A1C (Monitoring) - 6.1 % High??Sensitivity??Troponin T (03/28/2022) ???High Sensitivity Troponin (HSTnT) - 271 ng/L HOLD BLUE TUBE (03/28/2022) ???Hold Blue Top - SPECIMEN DISCARDED AFTER 4 HOURS. HOLD GREEN TUBE (03/28/2022) ???Hold Green Top - SPECIMEN DISCARDED AFTER 1 WEEK HOLD LAVENDER TUBE (04/26/2022) ???Hold Lavender Top - SPECIMEN DISCARDED AFTER 24 HOURS. Lipid Panel (03/29/2022) ???Cholesterol - 138 mg/dL???Triglycerides - 93 mg/dL???HDL Cholesterol - 50 mg/dL???LDL Cholesterol - 69 mg/dL???Non HDL Cholesterol - 88 mg/dL Lipid Panel Non Fasting (03/28/2022) ???Cholesterol - 137 mg/dL???HDL Cholesterol - 48 mg/dL???Non HDL Cholesterol - 89 mg/dL Lytes (04/14/2022) ???Sodium - 134 mmol/L???Potassium - 4.7 mmol/L???Chloride - 99 mmol/L???Bicarbonate Level - 28 mmol/L???Anion Gap - 7 Magnesium Level (04/17/2022) ???Magnesium - 2.4 mg/dL Mg Level (04/24/2022) ???Magnesium - 2.2 mg/dL Phosphorus Level (04/24/2022) ???Phosphorus - 3.6 mg/dL PT (INR) (03/28/2022) ???INR - 1.0???Protime (PT) - 10.7 seconds PTT (03/28/2022) ???APTT - 23.8 seconds Sodium Urine (03/30/2022) ???Sodium, Urine Random - 166 mmol/L Troponin T, High Sensitivity (03/29/2022) ???High Sensitivity Troponin (HSTnT) - 226 ng/L Type and Screen (03/28/2022) ???Blood Type - B Positive???Antibody Screen - Negative Urinalysis w/hold for Urine Culture (03/30/2022) ???Appear/Color, Urine - COLORLESS???Specific [place], Urine - 1.018???pH, Urine - 7.0???Albumin, Urine - TRACE???Glucose, Urine - NEGATIVE???Ketones, Urine - NEGATIVE???Bilirubin, Urine - NEGATIVE???Hemoglobin, Urine - NEGATIVE???Nitrite, Urine - NEGATIVE???Leukocyte, Urine - NEGATIVE???Urobilinogen - NORMAL???WBC's, Urine - NONE SEEN???RBC's, Urine - 2 /HPF???Mucus - SLIGHT???Hold Urine Culture- Testing available 48 hours from time of collection. Allergies (NKA means No Known Allergies) NKA Problems Active Problems??(1) COVID-19?? Education Materials Below is the list of Educational Leaflet Providered with your Discharge Instructions. Stroke (Completed)?? Valuables and Belongings I fully understand and agree that [facility] accepts no responsibility for all my personal property including clothing, toilet articles, radios, jewelry, dentures, hearing aids, rings, money, or any other property that is in my possession or is brought to me after admission. I understand certain valuables may be placed in a hospital safe for a short period of time. I understand that the hospital is not liable for loss or damage due to accident, fire, or other natural occurrence while said property is in the safe. I accept full responsibility for any personal property that I keep with me, and will not hold the hospital responsible in case of loss or disappearance. I acknowledge that i have been encouraged to send valuables and belongings home. ?? No Valuables/Belongings: No valuables/belongings present Review of Valuable and Belonging List: With patient Date for Pt to Sign Valuables/Belongings: 05/01/22 08:01:00 ?? Other Discharge Information ? Case Management Discharge Plan?? Discharge Plan?? Discharge Agency Information?? Discharge Level of Care at Discharge: Inpatient Rehab Facility/Unit Service Start Date and Time #1: 05/01/22 11:00:00 Discharge Transportation Arranged: [facility] [address] [facility] [phone] Service Categories #1: Occupational Therapy, Physical Therapy, Halfway, Speech Therapy Mode of Transportation Arranged: Ambulance Name of Person Notified of Transfer: The pt's HCP are aware amd agree with this plan Discharge Arranged Transport Date/Time: 05/01/22 11:00:00 Name of Receiving Clinician/Provider: Dr Nirali Cota is one of the covering physicains at this location Discharge Nursing Homes/Rehab Facilities: [facility] Re[facility] ? Pulmonary Rehab Status?? Pulmonary Rehab Discharge Status?? Respiratory Rate: 18 br/min ? Common Emergency Awareness Tips IS IT A STROKE? Act FAST and Check for these signs: FACE Does the face look uneven? ARM Does one arm drift down? SPEECH Does their speech sound strange? TIME Call at any sign of stroke ?? Heart Attack Signs Chest discomfort: Most heart attacks involve discomfort in the center of the chest and lasts more than a few minutes, or goes away and comes back. It can feel like uncomfortable pressure, squeezing, fullness or pain. Discomfort in upper body: Symptoms can include pain or discomfort in one or both arms, back, neck, jaw or stomach. Shortness of breath: With or without discomfort. Other signs: Breaking out in a cold sweat, nausea, or lightheaded. Remember, MINUTES DO MATTER. If you experience any of these heart attack warning signs, call to get immediate medical attention! ?? Smoking can increase your chances of developing chronic health problems and can cause harmful effects to other family members in your house. If you smoke, you are strongly encouraged to quit. Please call [facility] at [phone] or [phone] ([phone]) or log in to [email or web address] for referrals to smoking cessation programs. ?? The National Suicide Prevention Hotline is available 04/11 if you or someone you know needs to find a reason to keep living. By calling 5-599-349-[place] (2030) you'll be connected to a skilled, trained counselor at a crisis center in your area. INPATIENT DISCHARGE INSTRUCTIONS SIGNATURE PAGE MEL BUSTAMANTE ELDON Location:[facility] Registration Date and Time:03/28/2022 21:23 EST Primary Care Physician: Not on Staff, PCP ELDON FLORES, have received the above patient education materials/instructions and have verbalized understanding. If ambulance or transport services are being used I further acknowledgebeing given a choice of service. ?? If you need to contact me, please call me at this number: . Patient/Rn Sane Name: Patient/Rn Sane Signature: Relationship to Patient: Witness Name/Signature: Date: * Kierra Mcgovern RN: VERIFY, PERFORM, SIGN Event Display: Case Management Discharge Plan Authored Date: [id number] Patient: ELDON LOWE Age: 81 years Sex: Male : 1940 Associated Diagnoses: None Author: Kierra Mcgovern RN Discharge Plan Case Management Discharge Plan : Case Management Discharge Plan Data 04/30/2022 16:14 EST Discharge Level of Care at Discharge Inpatient Rehab Facility/Unit Discharge Nursing Homes/Rehab Facilities [facility] [place] Discharge Transportation Arranged [facility] [address] [facility] [phone] Discharge Arranged Transport Date/Time 05/01/2022 11:00 Mode of Transportation Arranged Ambulance Service Categories #1 Occupational Therapy, Physical Therapy, Halfway, Speech Therapy Service Start Date and Time #1 05/01/2022 11:00 Name of Person Notified of Transfer The pt's HCP are aware amd agree with this plan Name of Receiving Clinician/Provider Dr Nirali Cota is one of the covering physicains at this location * Bib LOPEZ, Sundar Ventura: PERFORM, MODIFY, MODIFY Event Display: Discharge/Transfer Note Hospital Authored Date: Patient: ??ELDON LOWE ? Age:??81 Years?Sex:??Male?:??1940?? 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 _ Discharge Medications Amlodipine (amLODIPine 10 mg oral tablet)?10?Milligram?1?tablet?By Mouth?Daily Aspirin (aspirin 81 mg oral delayed release tablet)?81?Milligram?1?tablet?By Mouth?Daily Atorvastatin (atorvastatin 80 mg oral tablet)?1?tab(s)?80?Milligram?By Mouth?Daily at bedtime Carvedilol (Coreg 12.5 mg oral tablet)?12.5?Milligram?1?tablet?By Mouth?2 times aday Cholecalciferol ((Vitamin D3) ??Cholecalciferol 400 HALFWAY units/mL oral syringe 1 mL)?10?Microgram?By Mouth?Daily Docusate-Senna (Docusate/Senna Tablet)?2?tab(s)?By Mouth?Daily?as needed?Constipation hydrALAZINE (hydrALAZINE 25 mg oral tablet)?100?Milligram?4?tablet?By Mouth?3 times a day Mirtazapine (mirtazapine 15 mg oral tablet)?1?tab(s)?15?Milligram?By Mouth?Daily at bedtime Miscellaneous Rx (oral supplement)?See Instructions?0.7 KCal/ml high protein1 bottle TID withmeals. vanilla Ocular Lubricant (Artificial Tears 1.4%)?1 drop?Eye, Left?3 times a day?as needed?Other?Dryness. Thiamine (thiamine 100 mg oral tablet)?100?Milligram?1?tablet?By Mouth?Daily ? Medications Started amlodipine carvedilol hydralazine docusate-senna mirtazapine artifical tears thiamine oral supplement Medications Discontinued HCTZ Doses Changed atorvastatin PCP Follow-Up/Heads-Up please ensure that patient follows up with neurology and cardiology he will need a CTA of head and neck in 4-6 weeks please ensure that patch monitor is placed to review for atrial fibrillation Future Appointments Friday 12:30 PM EST ?? With: Antonella LOPEZ, Marybel Where: [facility] Neurology [address] [place] [address] [address] Floor, [address] [place] [address]- Friday 12:45 PM EST ?? With: Gregoria SORIA, Janie Where: [facility] Cardiology [address] [place] [address]- Objective Assessment and Plan Assessment:??81-year-old man with history of hypertension, CAD presents as a transfer from [facility] 03/28 for stroke and potential thrombectomy. He was reviewed by Neurology and it was decided to not pursue thrombectomy and he was admitted to the [facility]. His high sensitivity troponin was elevated which was felt to be related to his acute stroke He was found to have evolution of the MCA stroke and early hemorrhagic transformation of parietal stroke. Patient's hospital course has??been complicated by poor oral intake??requiring temporary NG tube feeds which is now improving His R sided motor strength??is beginning??to??improve and??he is now ready??to be transferred to rehab ? Left MCA Stroke hemorrhagic transformation CTA Head at [facility] showed occlusion of L M2 MCA Last known well 11am on date of admission. He woke up with R arm numbness which seemed to have resolved around 11am - 12pm. Symptoms worsened acutely at 5 PM, Fauzia (son)??noticed that his father had right facial droop and was unable to move his right upper extremity or right extremity. The patient tried to get up out of that and fell face first hitting his nose. Transferred to [facility] for possible thrombectomy. CT perfusion scan done at [facility] and patient was evaluated by Dr. Ruiz from neuro endovascular and Dr. Berman from neurology who determined the patient is not a thrombectomy candidate since risks might outweigh benefit and clot might be too distal Follow-up CT 03/29 showing right MCA cytotoxic edema and early hemorrhagic transformation of parietal stroke 04/01: MRI stable 04/03: Bilateral Doppler performed, showing no clot, stable, no inpatient procedure recommended forpossible dissection, Neurology has signed off Patient has had some improving R sided weakness No atrial fibrillation on telemetry Recs ??-Continue hydralazine , Coreg, amlodipine aspirin ??-atorvastatin increased to??80mg daily ??-will need outpatient monitor - cardiology??to arrange zio patch ??-PT/OT board and recommended for rehab ??-started on mirtazepine 7.5 mg PO daily??to improve his appetite as recommended by PM&R team -??now increased??to 15mg ??-Follow-up with Neurology as outpatient - Dr Berman ??-Neurology are recommending CTA head/neck in 4-6 weeks ?? Protein calorie malnutrition: Poor p.o. intake due to stroke At one point was requiring tube feeds He was commenced on mirtazapine per PM&R recs with dose increased to 15mg Appetite has improved, especially when family bring in food from home continue oral supplements as recommended by regional flatbed truck driver ?? COVID positive ??patient COVID swab came back positive on 04/08 ??No URI symptoms noted and saturating well in the room air. ??Placed enhanced respiratory precautions and will monitor oxygen saturations. ??Not a candidate for dexamethasone or remdesivir at the moment given by saturating well in the room air and asymptomatic. ??patient??came off enhanced precautions on 04/18/22 ?? Troponinemia ??related to his stroke ??Cardiology on board saw patient and did not recommend ischemic work-up at this time ??Echo with normal EF ??Consider outpatient work-up for ischemia ??Continue aspirin, beta-naida, statin, lisinopril ?? Acute Kidney Injury: resolved. s/p IV fluid. Avoid nephrotoxic medications encourage oral intake? Borderline hyperkalaemia will hold lisinopril ? Prediabetes Hgb A1c 6.1. patient has not been requiring any insulin please monitor as outpatient ? Full code Family updated on 04/21/22 ? Vital Signs?? Temperature: 97.5 DegF (04/23/22 07:20:00) Temperature Route: Temporal (04/23/22 07:20:00) Pulse Rate: 63 bpm (04/23/22 09:52:00) Respiratory Rate: 20 br/min (04/23/22 07:20:00) Systolic Blood Pressure: 120 mm Hg (04/23/22 09:52:00) Diastolic Blood Pressure: 59 mm Hg (04/23/22 09:52:00) Blood pressure sites: Arm, right (04/23/22 07:20:00) Mean Arterial Pressure: 79 mm Hg (04/23/22 07:20:00) Pulse Pressure: 61 mm Hg (04/23/22 07:20:00) Oxygen Saturation: 98 % (04/23/22 07:20:00) Mode of Delivery (Oxygen): Room air (04/23/22 07:20:00) Early Warning Score: 2 (04/23/22 09:58:40) ? . Physical Exam Gen: comfortable, well: HEENT: normocephalic, atraumatic, moist mucous membranes Chest: CTA, no wheeze/crackles CVS: no M/G/R, no JVD Abdo: soft, non-tender Ext: no oedema, no cyanosis or clubbing Neuro: unable to assess orientation. power 5/5 on L. power improved on R 3-4/5 to RUE, 4/5 to RLE Psych: WNL Pending Results Add On Lab Order ordered on 03/28/2022 COVID-19 (2019 Novel Coronavirus) PCR ordered on 04/08/2022 Patient Education Titles Stroke (Completed)?? Follow-Up Appointments Added Follow Up ?Time Frame ?Comments Marybel Schlaug?05/08/2022 12:30 PCP Not on Staff Home Health Face to Face ^HomeHealthFTF Results Discharge Labs BLOOD BANK Blood Type B Positive ()?? 03/28/2022 20:34 Antibody Screen Negative ()?? 03/28/2022 20:34 ?? BLOOD COUNT & DIFF WBC 10.2 k/mm3 ()?? 04/17/2022 03:00 RBC 3.52 m/mm3 (Low)?? 04/17/2022 03:00 Hgb 11.0 Gm/dL (Low)?? 04/17/2022 03:00 Hct 33.6 % (Low)?? 04/17/2022 03:00 MCV 95.5 femtoliters (High)?? 04/17/2022 03:00 MCH 31.3 pg ()?? 04/17/2022 03:00 MCHC 32.7 g/dL (Low)?? 04/17/2022 03:00 Platelet Count 285 k/mm3 ()?? 04/17/2022 03:00 RDW-SD 45.1 femtoliters ()?? 04/17/2022 03:00 MPV 12.1 femtoliters ()?? 04/17/2022 03:00 Nucleated RBC (Automated) 0.0 #/100 WBC'S ()?? 04/17/2022 03:00 Abs. NRBC 0.0 k/mm3 ()?? 04/17/2022 03:00 Abs. Neut 6.3 k/mm3 ()?? 03/29/2022 04:47 Abs. Lymph 1.3 k/mm3 ()?? 03/29/2022 04:47 Abs. Churchill 0.6 k/mm3 ()?? 03/29/2022 04:47 Abs. Eo 0.2 k/mm3 ()?? 03/29/2022 04:47 Abs. Baso 0.0 k/mm3 ()?? 03/29/2022 04:47 Neut % 74.0 % ()?? 03/29/2022 04:47 Lymph % 15.6 % ()?? 03/29/2022 04:47 Churchill % 6.9 % ()?? 03/29/2022 04:47 Eos % 2.7 % ()?? 03/29/2022 04:47 Baso % 0.4 % ()?? 03/29/2022 04:47 Imm Gran 0.4 % ()?? 03/29/2022 04:47 Abs. Imm Gran 0.0 k/mm3 ()?? 03/29/2022 04:47 ?? CARDIAC High Sensitivity Troponin (HSTnT) 226 ng/L (Critical)?? 03/29/2022 04:47 ? CHEM GENERAL Sodium 132 mmol/L (Low)?? 04/20/2022 01:12 Potassium 5.2 mmol/L ()?? 04/20/2022 01:12 Chloride 96 mmol/L (Low)?? 04/20/2022 01:12 Bicarbonate Level 26 mmol/L ()?? 04/20/2022 01:12 Anion Gap 10 ()?? 04/20/2022 01:12 Glucose Level 117 mg/dL (High)?? 04/06/2022 03:21 Glucose, POC 111 mg/dL (High)?? 04/22/2022 06:37 Hemoglobin A1C (Monitoring) 6.1 % (High)?? 03/28/2022 19:45 BUN 34 mg/dL (High)?? 04/20/2022 01:12 Creatinine-Blood 1.2 mg/dL ()?? 04/20/2022 01:12 Estimated GFR Creatinine 65 ML/MIN/1.73 M2 ()?? 04/20/2022 01:12 Calcium 9.8 mg/dL ()?? 04/06/2022 03:21 Calcium, Ionized pH Corrected 1.23 mmol/L ()?? 04/16/2022 01:17 Phosphorus 3.1 mg/dL ()?? 04/16/2022 01:17 Magnesium 2.4 mg/dL (High)?? 04/17/2022 03:00 AST (SGOT) 19 units/L ()?? 03/28/2022 19:45 ?? COAG INR 1.0 ()?? 03/28/2022 19:45 Protime (PT) 10.7 seconds ()?? 03/28/2022 19:45 APTT 23.8 seconds (Low)?? 03/28/2022 19:45 D-Dimer 0.61 mg/L FEU ()?? 04/03/2022 13:23 ?? HEME OTHER Hold Lavender Top SPECIMEN DISCARDED AFTER 24 HOURS. ()?? 04/19/2022 06:14 Hold Blue Top SPECIMEN DISCARDED AFTER 4 HOURS. ()?? 03/28/2022 19:45 ?? LIPID STUDIES Cholesterol 138 mg/dL ()?? 03/29/2022 01:08 Triglycerides 93 mg/dL ()?? 03/29/2022 01:08 HDL Cholesterol 50 mg/dL ()?? 03/29/2022 01:08 LDL Cholesterol 69 mg/dL ()?? 03/29/2022 01:08 Non HDL Cholesterol 88 mg/dL ()?? 03/29/2022 01:08 ? MISC. CHEMISTRY Hold Green Top SPECIMEN DISCARDED AFTER 1 WEEK ()?? 03/28/2022 19:45 ? UA/URINALYSIS Appear/Color, Urine COLORLESS ()?? 03/30/2022 12:30 Specific [place], Urine 1.018 ()?? 03/30/2022 12:30 pH, Urine 7.0 ()?? 03/30/2022 12:30 Albumin, Urine TRACE (Abnormal)?? 03/30/2022 12:30 Glucose, Urine NEGATIVE ()?? 03/30/2022 12:30 Ketones, Urine NEGATIVE ()?? 03/30/2022 12:30 Bilirubin, Urine NEGATIVE ()?? 03/30/2022 12:30 Hemoglobin, Urine NEGATIVE ()?? 03/30/2022 12:30 Nitrite, Urine NEGATIVE ()?? 03/30/2022 12:30 Leukocyte, Urine NEGATIVE ()?? 03/30/2022 12:30 Urobilinogen NORMAL mg/dL ()?? 03/30/2022 12:30 WBC's, Urine NONE SEEN /HPF ()?? 03/30/2022 12:30 RBC's, Urine 2 /HPF ()?? 03/30/2022 12:30 Mucus SLIGHT /LPF ()?? 03/30/2022 12:30 Hold Urine Culture Testing available 48 hours from time of collection. ()?? 03/30/2022 12:30 ? URINE OTHER Sodium, Urine Random 166 mmol/L ()?? 03/30/2022 12:30 ? VIROLOGY COVID-19 PCR Specimen Source NASAL ()?? 04/08/2022 03:25 COVID-19 PCR Result POSITIVE (Abnormal)?? 04/08/2022 03:25 ? Imaging(s) ?CT Head/Brain W/O Contrast ?? 03/29/2022 15:11??by Marika Quevedo MD ? FINDINGS: ?? Agent Licensing Clerk view findings, lines and tubes: None. ?? BRAIN AND EXTRA-AXIAL SPACES: ?? Interval development of defined hypodensity involving the cortical chapman matter with loss of chapman-white matter differentiation in the left MCA territory including the left frontoparietal region, with resultant mild mass effect and partial effacement of the atrium of the left lateral ventricle. In addition there are few irregular foci of hyperdensity, suggestive of hemorrhage within the infarcted regions in the left parietal lobe,. No midline shift noted. . ?? Mild prominence of the ventricles and sulci consistent with parenchymal volume loss. ?? Mild low-density white matter changes. ?? No subarachnoid hemorrhage. No subdural or epidural collection. ?? CALVARIUM, SKULL BASE, AND SOFT TISSUES: No fractures or suspicious bony lesions. ?? Mild mucosal thickening of the right frontal sinus and right maxillary sinus. The other paranasal sinuses and mastoid air cells are clear. ?? Visualized orbits and globes are intact. ?? The extracranial soft tissues are unremarkable. ?? IMPRESSION: ?? Evolving left MCA territory infarct, with cytotoxic edema causing mild mass effect on the atrium ofthe left lateral ventricle. No midline shift. There is early hemorrhagic transformation of the infarct in the left parietal lobe.. ?MRI Brain W/O Contrast ?? 04/04/2022 04:30??by Navarro LOPEZ, Janelle Elias ? IMPRESSION: ?? Left MCA territory infarct again demonstrated with hemorrhagic conversion and cortical laminar necrosis. This is unchanged. WSN: [id number] ?MRI Brain W/O Contrast ?? 04/01/2022 02:29??by Pamela LOPEZ, Hosea ? IMPRESSION: ?? Acute infarcts of various sizes within the left MCA territory, most significant at the left lateralparieto-occipital lobes where there are hemorrhagic conversions. WSN: [id number] ?Chest 2 Views Frontal and Lat ?? 03/28/2022 21:49??by Carmelo Rosario MD ? IMPRESSION: ?? Findings suggestive of mild pulmonary edema with a small left pleural effusion. ?Echocardiogram - Complete ?? 03/29/2022 06:45??by Jameel Davis MD ?Summary ??Technically difficult study. ??The left ventricle is small. There is severe asymmetric septal hypertrophy ??(18 mm) with mildly increased LV wall thickness elsewhere. Overall left ??ventricular systolic function is normal. LVEF 55-60%. There is abnormal ??septal motion consistent with conduction abnormality. Grade I diastolic ??dysfunction with normal left atrial pressure. The posteromedial papillary ??muscle is hypertrophied. ??The right ventricle is normal in size and systolic function. ??Normal biatrial size. ??No obvious valve dysfunction on available images. ??The central venous pressure estimation is normal, 3mmHg. ??There is no evidence of pulmonary hypertension. ?? Impressions ??If clinical concern for hypertrophic (or infiltrative) cardiomyopathy, ??consider cardiac MRI. ?? Comparison ??No prior study available for comparison. ?VL Carotid Duplex Scan Bilat ?? 04/03/2022 14:54??by Arron Garay MD ?Summary: Right Side: 1-49% stenosis in the Internal Carotid Artery. Antegrade flow in the Vertebral Artery. Biphasic flow is seen in the Subclavian Artery. ?? Left Side: 70-99% stenosis in the Internal Carotid Artery. Antegrade flow in the Vertebral Artery. Biphasic flow is seen in the Subclavian Artery. Recommendations: A CTA for correlation could be performed if clinically indicated. ?CT Perfusion ?? 03/28/2022 20:18??by Pamela LOPEZ, Hosea ? IMPRESSION: ?? Abnormal perfusion in the setting of left distal MCA stenosis/occlusion, with perfusion mismatch volume 26 mL in the left parieto-occipital lobes. ? Consults(s) ?Consultation Note ?? 04/02/2022 16:00??by Antonella LOPEZ, Marybel ?Neurology ?Consultation Note ?? 03/29/2022 12:20??by Norman Colmenares MD ?PM&R ?Consultation Note ?? 03/29/2022 04:49??by Kailee Romero MD ?Cardiology ? 28_ minutes spent on discharge * Sundar Mccartney MD: PERFORM Event Display: Discharge/Transfer Note Hospital Authored Date: no rehab bed for patient today - this note to act as progress note * Sundar Mccartney MD: PERFORM Event Display: Patient Education Leaflets Authored Date: [id number] Stroke (Completed) ?? [id number] Accidente cerebrovascular (completo) Usted valle sufrido un derrame o un accidente cerebrovascular (ACV). [place] se debe a javy p??rdida del flujo sangu??mayda a javy parte del cerebro. Los accidentes cerebrovasculares de tipo isqu??donna pueden ocurrir cuando se forma un co??gulo de jennifer en la arteria car??tida (la arteria principal que va del coraz??n al cerebro) o en el interior del coraz??n y viaja al cerebro para alojarse en un vaso sangu??mayda y obstruir (bloquear) el flujo de jennifer. Otra causa isqu??rosas com??n de un accidente cerebrovascular es el estrechamiento gradual de las arterias en el cerebro debido a la acumulaci??n de dep??sitos grasos (placa). En carol estrechamiento, se puede producir la formaci??n de un co??gulo. Con lucila frecuencia, el accidente cerebrovascular isqu??donna puede deberse a javy infecci??n o un c??ncer. Javy enfermedad autoinmunitaria puede provocar inflamaci??n en los vasos sangu??neos y esto tambi??n puede producir un accidente cerebrovascular. Tambi??n existe el accidente cerebrovascular hemorr ??gico. Carol se produce cuando se rompe un vaso sangu??mayda y se interrumpe el flujo de jennifer a alguna parte del cerebro. S??ntomas La obstrucci??n del flujo sangu??mayda en diferentes zonas del cerebro puede causar diversos s??ntomas. Si ya valle sufrido un accidente cerebrovascular, es posible que rashawn nuevo sea diferente. Un ayuda memoria para recordar los s??ntomas comunes de un accidente cerebrovascular es la sigla en ingl??s F.A .S.T. F.A.S.T. ??? F de ???face drooping?? , que significa ca??da de la charmaine o entumecimiento repentino en un lado. [place] puede ser m??s notable cuando le pide a la persona afectada que sonr??a. ??? A de ???arm weakness?? , que significa debilidad o adormecimiento de un brazo. La persona afectada puede tener dificultades para usar o levantar un brazo. ??? S de ???speech difficulty?? , que significa dificultad para hablar. Puede hablar arrastrando las palabras o no hablar grupo. La persona afectada tambi??n puede utilizar mal las palabras. ??? T de ???time to call 911?? , que significa que es el momento de llamar al 911. El tiempo es cr??vishnu en el tratamiento de un accidente cerebrovascular. Llame al 911 apenas sospeche que se produjo un accidente cerebrovascular, incluso rashawn leve. Cuanto antes comience el tratamiento mejor, incluso si los s??ntomas desaparecen. Otros s??ntomas comunes de un accidente cerebrovascular incluyen los siguientes: ??? Dificultad para decir las palabras adecuadas ??? Debilidad en javy pierna ??? Entumecimiento en un lado ??? Dificultad para caminar ??? Problemas para coordinar ??? Problemas para devon ??? Dolor de allyssa intenso ???Confusi??n ??? Mareos ?? Tratamiento Javy vez que haya tenido un accidente cerebrovascular, corre riesgo de tener otro. Aseg??rese de hacer un seguimiento con el proveedor de atenci??n m??dica para que lo eval??e y le d?? un tratamiento.Si se encuentran problemas, olivo proveedor de atenci??n m??dica le recomendar?? un tratamiento con medicamentos, con procedimientos o ambos. Es posible que le receten medicamentos para reducir brianna probabilidades de experimentar otro accidente cerebrovascular. Estos incluyen medicamentos para prevenir co??gulos sangu??neos, malia medicamentos anticoagulantes y antiagregantes plaquetarios. Algunas afecciones card??acas se pueden tratar con cirug??a para reducir el riesgo de tener m??s accidentes cerebrovasculares. La cirug??a para desobstruir la arteria car??tida (endarterectom??a) tambi??n puede reducir el riesgo de tener accidentes cerebrovasculares en el futuro. Es posible que necesite fisioterapia junto con terapia del habla y terapia ocupacional, si corresponde. [place] se puede hacer en oliov casa, en un consultorio externo o en un centro de rehabilitaci??n. Laubicaci??n depender?? de brianna necesidades y posibilidades. ?? Cuidados en el hogar ??? Descanse en olivo casa y evite los esfuerzos y actividades fatigosas marixa los pr??ximos d??as. ??? Si olivo proveedor de atenci??n m??dica le recet?? medicamentos, t??melos comole indiquen. ?? Visitas de control Asista a los controles con olivo proveedor de atenci??n m??dica seg??n le hayan indicado. Saad vez sea necesario que le adina pruebas adicionales. Si le hicieron radiograf??as, javy tomograf??a computarizada, javy resonancia magn??fabien o un electrocardiograma, los resultados ser??n examinados por un especialista. Se le notificar?? cualquier nuevo resultado que pueda afectar olivo atenci??n. ?? Cu??ndo llamar al 911 Llame al 911 si ocurre algo de lo siguiente: ??? Empeoramiento de cualquiera de brianna s??ntomas de accidente cerebrovascular ??? Nuevos problemas repentinos para??hablar, devon, caminar; confusi??n, falta de coordinaci??n, par??lisis facial, debilidad o adormecimiento en un lado del cuerpo ??? Dolor de allyssa intenso, desmayos, mareos o convulsiones ??? Dolor de pecho o falta de aliento Recuerde la ayuda memoria F.A.S.T. (que se describi?? antes). Si nota s??ntomas y signos de advertencia de un accidente cerebrovascular, llame de inmediato al 911 . La persona que tenga estos s??ntomas no debe conducir. Tampoco traslade a javy persona que tenga loss??ntomas. La ambulancia puede alertar al hospital y empezar el tratamiento. ?? Last Reviewed Date: 2019 ?? [id number] [employer]. Todos los derechos reservados. Esta informaci??n no pretende sustituir la atenci??n m??dica profesional. S??lo olivo m??dico puede diagnosticar y tratar un problema de doug. ?? * Event Display: Cardiac Rhythm Strips Authored Date: * EASTONSPowersclukasz , CIS S: TRANSCHosea Pereira MD: VERIFY Event Display: Result: Authored Date: CT Perfusion INDICATION/CLINICAL QUESTION: Right arm weakness. Aphasia. Intracranial vascular pathology; Clinical Question(s): Infarct / Infarct. TECHNIQUE: CT perfusion imaging of the head was performed during the administration of 70 mL Omnipaque 300 intravenous contrast. Data were set to RAPID for processing. CTDIvol Head: 94.40 mGy, DLP Head: 755 mGy*cm. COMPARISON: None. FINDINGS: There is a confluent region of delayed time to peak with T max greater than 6 seconds involving theleft parieto-occipital lobes in the left MCA territory. The calculated volume is 41 mL. The volume of tissue in this region with a cerebral blood flow of less than 30% is calculated at 15mL, involving the left parieto-occipital lobes. The area of tissue with cerebral blood volume less than 34% has a similar distribution, with volume calculated at 17 mL. The mismatch volume is 26 mL (mismatch ratio: 2.7). IMPRESSION: Abnormal perfusion in the setting of left distal MCA stenosis/occlusion, with perfusion mismatch volume 26 mL in the left parieto-occipital lobes. WSN: [id number] Ordering Physician: aLci Dougherty Dictated By: Hosea Santiago MD Dictated Date/Time: 03/29/22 8:02 am Reviewed By: Hosea Santiago MD Signed By: Hosea Santiago MD Signed Date/Time: 03/29/22 8:02 am Transcribed By: ZOE Transcribed Date/Time: 03/29/22 7:57 am * BHSPowerscribe , CIS S: TRANSCRIBE Carmelo Rosario MD: VERIFY Negro Ferrell DO: SIGN Event Display: Result: Authored Date: [id number] Chest 2 Views Frontal and Lat Reason: Stroke; Clinical Question(s): CHF COMPARISON: None. FINDINGS: LINES AND TUBES: None. LUNGS AND PLEURA: Increased pulmonary vascularity and obscuration of the left lung base suggestive of a small pleuraleffusion. No right pleural effusion. No pneumothorax. HEART, MEDIASTINUM AND MICHELLE: Heart is normal in size. Normal mediastinal and hilar contour. BONES AND SOFT TISSUES: No acute abnormality. IMPRESSION: Findings suggestive of mild pulmonary edema with a small left pleural effusion. I have personally reviewed the images and I agree with this report. WSN: [id number] Ordering Physician: Laci Dougherty Dictated By: Negro Ferrell DO Dictated Date/Time: 03/28/22 10:16 p Reviewed By: Carmelo Rosario MD Signed By: Carmelo Rosario MD Signed Date/Time: 03/28/22 10:21 pm Transcribed By: ZOE Transcribed Date/Time: 03/28/22 10:15 pm Hospital Progress note * Kasia Shankar RN: PERFORM, SIGN, VERIFY Event Display: Progress Note Hospital Authored Date: Patient: ELDON LOWE Age: 81 years Sex: Male : 1940 Associated Diagnoses: None Author: Kasia Shankar RN Findings Evaluation Pt arrived to [facility] DC unit this am. Pt pleasantly confused. Persian speaking only. VSS. Pt denies anypain or discomfort. F/C draining c/y/u. Plan: d/c to rehab today at 11am by ambulance. Will continue to monitor. Pt has no iv access. . * Nahed Covington: VERIFY, PERFORM, SIGN Event Display: Progress Note Hospital Authored Date: [id number] Patient: ELDON LOWE Age: 81 years Sex: Male : 1940 Associated Diagnoses: None Author: Nahed Covington Findings Problem Related to Alteration in Neurological : Alteration in Neurological Function/new 04/30/2022 20:00 EST Alteration in Neuro status Related to Acute Stroke (CVA) Goals & Outcomes, Neurological Lab studies/diagnostic tests within pt specific limits, Pt is safe with transfers & activities, Pt will be hemodynamically stable, Pt will be Neurologically stable, Pt will maintain intact skin integrity, Pt will remain free from injury, Pt will resume/maintain adequate cardiac output, Pt/caregiver will state strategies to reduce risk factors, Pt/caregiver will state understanding aspiration precautions, Pt/caregiver will state understanding of plan/goals of care, Pt will demonstrate safe transfers, Pt will demonstrate use of adaptive equipment, Pt will be without signs of aspiration, Pt/caregiver will be able to describe s/s of TIA/Stroke Interventions, Neurological Assess/monitor for increased Intracranial Pressure, Assess/monitor neurologic status, Assess/monitor VS per unit standards & prn, Call/Report variances in assessments to provider, Collaborate w/ provider to implement appropriate guidelines, Collaborate with Nutrition, Collaborate with provider re: medication regime, Identify psychosocial issues related to diagnosis/illness, If no bowel movement in 3 days activate bowel regime, [place] alternate means of communication, Keep patient's head & body in good alignment, Maintain patient safety if unsteady gait, Maintain strict intake & output, Monitor Fluid & Electrolytes, Serum Osmolarity, Monitor forheadaches, nausea, vomiting, Monitor speech fluency, aphasia, word finding difficulty, Physical assessment per unit standards, Provide emotional support to Pt/caregiver BH Goals/Interventions, Neurological Yes Neurological, Problem Start 03/30/2022 6:33 Reviewed plan with, Neurological Patient Patient Progression, Neurological Pt progressing according to plan . Nursing Data Neurological Data. : Neurological Data. 04/30/2022 23:00 EST Neurological Symptoms Alteration in level of consciousness, Lack of coordination, Memory loss, Unsteady gait/Ataxia, Weakness or loss of muscle strength Level of Consciousness Confusion Orientated to person, place, time Person, Place Facial Symmetry Intact Characteristics of Speech Slurred Swallowing Difficulty None Pupil description, left Regular Pupil description, right Regular Pupil reaction, left Brisk Pupil reaction, right Brisk Pupil Size, Left 3 mm Pupil Size, Right 3 mm Strength LUE 4-Active movement against gravity & some resistance Strength RUE 3-Active movement against gravity Strength LLE 4-Active movement against gravity & some resistance Strength RLE 3-Active movement against gravity Tone LUE Normal Tone RUE Normal Tone LLE Normal Tone RLE Normal Sensation LUE Intact Sensation RUE Intact Sensation LLE Intact Sensation RLE Intact Movement LUE Spontaneous, To command Movement RUE Spontaneous, To command Movement LLE Spontaneous, To command Movement RLE Spontaneous, To command Gait Unsteady, Unable to assess Response Eye Opening Spontaneously Motor Response-Adult Obeys commands Verbal Response-Adult Disoriented and converses Bradshaw Coma Score 14 Neuro WNL except Corneal/Blink Reflex Intact right, Intact left Eyes and Movements Conjugate gaze: Move in same direction at same speed Memory Short term loss Swallow - Neuro Normal . Evaluation Pt Persian speaking, an flight operations specialist used for assessment, pt Alert to self, follows simple commands,moves right upper and lower extremities 3/5, left upper and lowers 4/5, unable to assess gait. Lungs sounds clear/dim, denies SOB/chest pain, active bowel sound, flat and non-tender. Last BM 04/28, take pills whole, patent izquierdo in place,- continue to monitor . Discharge Information Case Management Discharge Plan : Case Management Discharge Plan Data 04/30/2022 16:14 EST Discharge Level of Care at Discharge Inpatient Rehab Facility/Unit Discharge Nursing Homes/Rehab Facilities [facility] Discharge Transportation Arranged [facility] [address] [place] [address] T[place] [id number] [phone] Discharge Arranged Transport Date/Time 05/01/2022 11:00 Mode of Transportation Arranged Ambulance Service Categories #1 Occupational Therapy, Physical Therapy, Halfway, Speech Therapy Service Start Date and Time #1 05/01/2022 11:00 Name of Person Notified of Transfer The pt's HCP are aware amd agree with this plan Name of Receiving Clinician/Provider Dr Nirali Cota is one of the covering physicains at this location Rehabilitation Discharge : Rehab Discharge Index 04/30/2022 12:39 EST Walker: distance 20-50 * Naty LOPEZ, Kostas: PERFORM Event Display: Progress Note Hospital Authored Date: [id number] Patient: ??ELDON LOWE ? Age:??81 Years?Sex:??Male?:??1940?? Subjective No events overnight?? seen at bedside, lab and vitals reviewed?? No chest pain or SOB?? Review of Systems All review of systems negative except above Objective Measurements?? Height: 177.8 cm (04/30/22) Weight: 57.5 kg (04/24/22) Dry Weight: 57.5 kg (04/24/22) ? Vital Signs?? Temperature: 98.4 DegF (04/30/22 11:40:00) Temperature Route: Oral (04/30/22 11:40:00) Pulse Rate: 73 bpm (04/30/22 11:40:00) Respiratory Rate: 18 br/min (04/30/22 11:40:00) Systolic Blood Pressure: 131 mm Hg (04/30/22 11:40:00) Diastolic Blood Pressure: 63 mm Hg (04/30/22 11:40:00) Blood pressure sites: Arm, left (04/30/22 11:40:00) Mean Arterial Pressure: 86 mm Hg (04/30/22 11:40:00) Pulse Pressure: 68 mm Hg (04/30/22 11:40:00) Oxygen Saturation: 100 % (04/30/22 11:40:00) Mode of Delivery (Oxygen): Room air (04/30/22 11:40:00) Early Warning Score: 0 (04/30/22 11:41:55) ? Intake/Output? 03/28 21:23 04/30 07:00 04/29 07:00 04/28 07:00 04/27 07:00 ?? 04/30 13:04 04/30 13:04 04/30 06:59 04/29 06:59 04/28 06:59 Intake ?39864.1 ?460 ?680 ?240 ?597 Output ?44114 ?750 ?500 ?950 ? 1025 Net Total ? -86225.9 ? -290 ?180 ? -710 ? -428 ? Urine Count ?1 ?0 ?0 ?0 ?0 ? Physical Exam General?NAD, AAO to person HEENT?PERRLA, oropharynx clear, moist mucus membranes Pulm?CTA bilaterally, no wheezes/rhonchi/rales CV?RRR, +S1/S2, no murmurs/rubs GI?Soft, nontender, nondistended, no organomegaly, bowel sounds are present Neuro?left upper extremity weakness??1/5, aphasia MS?no obvious deformity Psych?Mood appropriate to situation _ Inpatient Medications Medications (18) Active SCHEDULED: (12) Amlodipine 10 mg Tablet (amLODIPine 10 mg oral tablet) ??10 mg, By Mouth, Daily Aspirin 81 mg Chew Tablet (aspirin 81 mg oral tablet, chewable) ??81 mg, By Mouth, Daily Atorvastatin 80 mg Tablet (Atorvastatin Tablet) ??80 mg, By Mouth, Daily at bedtime Carvedilol 12.5 mg Tablet (Coreg 12.5 mg oral tablet) ??12.5 mg, By Mouth, 2 times a day Docusate Sodium 100 mg Capsule (Colace sodium 100 mg oral capsule) ??100 mg 1 capsule, By Mouth, 2 times a day Enoxaparin 40 mg Inj (Enoxaparin Inj) ??40 mg 0.4 mL, Subcutaneous Injection, Daily hydrALAZINE 25 mg Tablet (hydrALAZINE 25 mg oral tablet) ??100 mg, By Mouth, 3 times a day Mirtazapine 15 mg Tablet (mirtazapine 15 mg oral tablet) ??15 mg, By Mouth, Daily at bedtime Multivitamin Therapeutic / Minerals Tablet (Multivit Therapeutic/Minerals Tablet) ??1 tablet, By Mouth, Daily Nystatin Powder ??1 application, Topically, 2 times a day Senna Tablet (Senna 8.6 mg oral tablet) ??8.6 mg 1 tablet, By Mouth, Daily Thiamine 100 mg Tablet (thiamine 100 mg oral tablet) ??100 mg, By Mouth, Daily CONTINUOUS: (0) PRN: (6) Acetaminophen 325 mg Tablet (acetaminophen 325 mg oral tablet) ??650 mg, By Mouth, Every 4 hours Bisacodyl 10 mg Suppository (Bisacodyl Supp) ??10 mg 1 supp, Rectally, Daily Dextrose Inj Syringe (Dextrose 50% Inj Syringe (25Gm)) ??12.5 Gm, IV Push Slowly, Every 20 minutes Glucose 40% Gel (15 Gm) (Glucose Gel) ??15 Gm, By Mouth, Every 20 minutes Polyvinyl Alcohol 1.4% Opthalmic Solution/Artificial Tears (Artificial Tears 1.4%) ??2 drops, Eye, Left, Every 8 hours Senna 8.6 mg / Docusate 50 mg tablet (Docusate/Senna Tablet) ??2 tablet, By Mouth, Daily ? Results Abnormal Labs No lab data available. ?? Assessment/Plan 81-year-old man with history of hypertension, CAD presents as a transfer from [facility] 03/28 for stroke and potential thrombectomy. He was reviewed by Neurology and it was decided to not pursue thrombectomy and he was admitted to the [facility]. His high sensitivity troponin was elevated which was felt to be related to his acute stroke He was found to have evolution of the MCA stroke and early hemorrhagic transformation of parietal stroke. Patient's hospital course has??been complicated by poor oral intake??requiring temporary NG tube feeds which is now improving His R sided motor strength??is beginning??to??improve and??he is now ready??to be transferred to rehab ? Left MCA Stroke hemorrhagic transformation CTA Head at [place] showed occlusion of L M2 MCA Last known well 11am on date of admission. He woke up with R arm numbness which seemed to have resolved around 11am - 12pm. Symptoms worsened acutely at 5 PM, Fauzia (son)??noticed that his father had right facial droop and was unable to move his right upper extremity or right extremity. The patient tried to get up out of that and fell face first hitting his nose. Transferred to [facility] for possible thrombectomy. CT perfusion scan done at [facility] and patient was evaluated by Dr. Ruiz from neuro endovascular and Dr. Berman from neurology who determined the patient is not a thrombectomy candidate since risks might outweigh benefit and clot might be too distal Follow-up CT 03/29 showing right MCA cytotoxic edema and early hemorrhagic transformation of parietal stroke 04/01: MRI stable 04/03: Bilateral Doppler performed, showing no clot, stable, no inpatient procedure recommended forpossible dissection, Neurology has signed off Patient has had some improving R sided weakness No atrial fibrillation on telemetry ?? -Continue hydralazine , Coreg, amlodipine aspirin -atorvastatin increased to??80mg daily -will need outpatient monitor - cardiology??to arrange zio patch -Follow-up with Neurology as outpatient - Dr Berman -Neurology are recommending CTA head/neck in 4-6 weeks ?? Malnutrition: Poor p.o. intake due to stroke At one point was requiring tube feeds -Continue??mirtazapine -Appetite has improved, especially when family bring in food from home -Continue oral supplements as recommended by regional flatbed truck driver ?? Troponinemia Related to his stroke Echo with normal EF -Cardiology on board saw patient and did not recommend ischemic work-up at this time -Consider outpatient work-up for ischemia -Continue aspirin, beta-naida, statin -lisinopril held for elevated k ?? Acute Kidney Injury: resolved. ?? COVID positive on 04/08- came off enhanced precautions on 1/5/23 Borderline hyperkalaemia: will hold lisinopril Prediabetes: Hgb A1c 6.1. patient has not been requiring any insulin ? Full code ?? Pending placement ?? CT Head WO contrast * BHSPowerscribe , CIS S: TRANSCRIBE Emy LOPEZ, Marika: VERIFY Yuridia Causey DO F: SIGN Event Display: Result: Authored Date: CT Head/Brain W/O Contrast INDICATION: CVA follow up; Clinical Question(s): Infarction TECHNIQUE: Noncontrast head CT using axial technique and reconstructed in axial and coronal planes.Iterative reconstruction techniques are used to optimize dose and image quality. CTDIvol Head: 47.10 mGy, DLP Head: 773 mGy*cm. COMPARISON: CT head 03/28/2022 (seen on ANH) and CT perfusion 03/28/2022 FINDINGS: Agent Licensing Clerk view findings, lines and tubes: None. BRAIN AND EXTRA-AXIAL SPACES: Interval development of defined hypodensity involving the cortical chapman matter with loss of chapman-white matter differentiation in the left MCA territory including the left frontoparietal region, with resultant mild mass effect and partial effacement of the atrium of the left lateral ventricle. In addition there are few irregular foci of hyperdensity, suggestive of hemorrhage within the infarcted regions in the left parietal lobe,. No midline shift noted. . Mild prominence of the ventricles and sulci consistent with parenchymal volume loss. Mild low-density white matter changes. No subarachnoid hemorrhage. No subdural or epidural collection. CALVARIUM, SKULL BASE, AND SOFT TISSUES: No fractures or suspicious bony lesions. Mild mucosal thickening of the right frontal sinus and right maxillary sinus. The other paranasal sinuses and mastoid air cells are clear. Visualized orbits and globes are intact. The extracranial soft tissues are unremarkable. IMPRESSION: Evolving left MCA territory infarct, with cytotoxic edema causing mild mass effect on the atrium ofthe left lateral ventricle. No midline shift. There is early hemorrhagic transformation of the infarct in the left parietal lobe.. A critical result message ([place]) has been communicated via the [employer] system on 03/29/2022 4:12 PM, Message ID [id number]. I have personally reviewed the images and I agree with this report. WSN: [id number] Ordering Physician: Laci Cage Dictated By: Yuridia Causey DO Dictated Date/Time: 03/29/22 4:12 pm Reviewed By: Marika Quevedo MD Signed By: Marika Quevedo MD Signed Date/Time: 03/29/22 4:17 pm Transcribed By: ZOE Transcribed Date/Time: 03/29/22 3:55 pm MR Brain WO contrast * BHSPowerscribe , CIS S: TRANSCRIBE Janelle Briceño MD: VERIFY Event Display: Result: Authored Date: [id number] MRI Brain W/O Contrast INDICATION: Reason: Hemiparesis; extent of stroke; Clinical Question(s): Infarction; Special Instructions: Patient is enrolled in VERIFY; please only do high res T1 ([id number] voxel size)- BOYCE sequence and DWI sequence.; Order Comment: Please see Reference Text for complete list of contraindications Infarction TECHNIQUE: MRI of the brain was performed without contrast utilizing sagittal T1, axial T2, axial FLAIR, axial SWAN, 3D axial T1 BOYCE, and axial DWI sequences. COMPARISON: Brain MRI 04/01/2022. FINDINGS: BRAIN and EXTRA-AXIAL SPACES: Acute infarct in the left MCA territory again demonstrated, with areas of intrinsic T1 shortening and susceptibility indicating combination of cortical laminar necrosis and petechial hemorrhages. This is similar to the previous exam. Local sulcal effacement and mild local mass effect with partial effacement of the left lateral ventricle and minimal rightward midline shift, unchanged. Scattered nonspecific T2/flair hyperintensities in the white matter are noted which most likely reflect chronic small vessel disease. Mild global prominence of the ventricles and sulci reflecting volume loss. No extra-axial collection. The major intracranial vascular flow voids are preserved. EXTRACRANIAL SOFT TISSUES: Orbits are unremarkable. Paranasal sinuses and mastoids are unremarkable. BONES: Marrow signal is preserved. IMPRESSION: Left MCA territory infarct again demonstrated with hemorrhagic conversion and cortical laminar necrosis. This is unchanged. WSN: [id number] Ordering Physician: Marybel Berman Dictated By: Janelle Briceño MD Dictated Date/Time: 04/04/22 8:00 am Reviewed By: Janelle Briceño MD Signed By: Janelle Briceño MD Signed Date/Time: 04/04/22 8:00 am Transcribed By: ZOE Transcribed Date/Time: 04/04/22 7:56 am * JOSE LUIS Haskins S: TRANSCHosea Pereira MD: VERIFY Event Display: Result: Authored Date: [id number] MRI Brain W/O Contrast INDICATION: CVA; Clinical Question(s): Infarction; acute onset of right arm weakness and speech problems TECHNIQUE: MRI of the brain was performed without contrast utilizing sagittal T1, axial T2, axial FLAIR, axial SWAN, and axial DWI sequences. COMPARISON: CT of head on 03/29/2022 FINDINGS: BRAIN and EXTRA-AXIAL SPACES: There is a large irregular area of restricted diffusion involving thelateral aspect of the left posterior frontal, parietal, temporal and occipital lobes including the left posterior insula, consistent with an acute infarct of the left MCA territory. This is associated susceptibility artifacts in the left parieto-occipital lobes suggesting hemorrhagic conversion. These findings were present on the prior CT. Additional smaller areas of acute infarcts of various sizes are also seen involving the posterior medial aspect of the left frontal lobe, the left frontal white matter, the left basal ganglia and the left anterior medial temporal lobe. A small focal area ofsusceptibility artifact is seen in the left anterior temporal lobe. The left lateral ventricle is mildly effaced. No hydrocephalus. Minimal left to right midline shift. Mild bilateral white matter disease is nonspecific and could be due to chronic small vessel ischemic disease. There is mild generalized age-related atrophy. EXTRACRANIAL SOFT TISSUES: Orbits are unremarkable. Paranasal sinuses are unremarkable. Minimal mucosal thickening within the right mastoid. BONES: Marrow signal is preserved. IMPRESSION: Acute infarcts of various sizes within the left MCA territory, most significant at the left lateralparieto-occipital lobes where there are hemorrhagic conversions. WSN: [id number] Ordering Physician: Laci Cage Dictated By: Hosea Santiago MD Dictated Date/Time: 04/01/22 8:22 am Reviewed By: Hosea Santiago MD Signed By: Hosea Santiago MD Signed Date/Time: 04/01/22 8:22 am Transcribed By: ZOE Transcribed Date/Time: 04/01/22 8:22 am Portable XR Chest Views * JOSE LUIS Haskins S: TRANSCRIMarika Schwartz MD: VERIFY Event Display: Result: Authored Date: [id number] Chest Portable Reason: Line Placement; Clinical Question(s): Line Placement COMPARISON: 04/12/2022 and 03/28/2022 FINDINGS: LINES AND TUBES: Enteric tube courses below the diaphragm and off of the image. LUNGS AND PLEURA: Right apical pleural opacity present. No other focal consolidation seen. Normal pulmonary vascularity. No pleural effusion. No pneumothorax. HEART, MEDIASTINUM AND MICHELLE: Heart is normal in size. Normal mediastinal and hilar contour. BONES AND SOFT TISSUES: No acute abnormality. IMPRESSION: Enteric tube courses below the diaphragm and off of the image. Stable right apical pleural opacity. No new focal consolidation. WSN: [id number] Ordering Physician: Sundar Mccartney Dictated By: Marika Quevedo MD Dictated Date/Time: 04/16/22 8:07 am Reviewed By: Marika Quevedo MD Signed By: Marika Quevedo MD Signed Date/Time: 04/16/22 8:07 am Transcribed By: ZOE Transcribed Date/Time: 04/16/22 7:58 am * BHSPowerscribe , CIS S: TRANSCRIBE Camron Calderón MD: VERIFY Event Display: Result: Authored Date: [id number] Chest Portable Reason: Tube Placement; Clinical Question(s): Tube Placement COMPARISON: X-ray from 03/28/2022 FINDINGS: LINES AND TUBES: NG tube tip and side port are in the stomach. LUNGS AND PLEURA: Clear lungs. Normal pulmonary vascularity. No pleural effusion. No pneumothorax. HEART, MEDIASTINUM AND MICHELLE: Heart is normal in size. Normal mediastinal and hilar contour. BONES AND SOFT TISSUES: No acute abnormality. IMPRESSION: No acute cardiopulmonary pathology. Well-positioned NG tube. WSN: [id number] Ordering Physician: Mata Villeda Dictated By: Camron Calderón MD Dictated Date/Time: 04/12/22 5:29 pm Reviewed By: Camron Calderón MD Signed By: Camron Calderón MD Signed Date/Time: 04/12/22 5:29 pm Transcribed By: ZOE Transcribed Date/Time: 04/12/22 5:28 pm Patient Care team information Care Team Personnel Name: Anthony Dozier RN Position: [facility] RN Member Role: Primary Care Nurse Name: Travon Armas RN Position: [facility] RN Member Role: Primary Care Nurse Name: Rylee Reyes RN Position: [facility] RN Member Role: Primary Care Nurse Name: Hernán Pettit RN Position: [facility] RN Member Role: Primary Care Nurse Name: Salas Chaudhari RN Position: [facility] RN Member Role: Primary Care Nurse Name: Not on Staff, PCP Position: [facility] Physician (General Medicine) Member Role: PCP Name: Waylon Garay RN Position: [facility] RN Member Role: Primary Care Nurse Name: BernabeAditya Evans Attending Position: [facility] ED Medicine MD Name: Meron Treadwell Position: [facility] ED OA Charge Member Role: ED Associate Care Team Related Persons Name: FAUZIA CODY Address: [address] [address]
--- OUTSIDE RECORDS SUMMARY | 2023-12-03 08:01 | XMS_ITS | Continuity of Care Document ---
Author Organization [facility] Address [address] [place] [id number]- Care Team Providers Care Property Insurance Agent Name Role Phone Not on Staff, PCP Primary Care Physician Unavail able Encounter [facility] [place] Date(s): 06/12/22 - 06/27/[address] [address]- Encounter Diagnosis Cerebral infarction, unspecified(Final) - Discharge Disposition: A-D/C Home Attending Physician: Nirali Cota MD Admitting Physician: Nirali Cota MD Referring Physician: Nirali Cota MD Allergies, Adverse Reactions, Alerts No Known Allergies Medications (Vitamin D3) Cholecalciferol 400 FPC units/mL oral syringe 1 mL = 10 [...] to Pharmacy Electronically, [facility]/pharmacy #[id number], Partial fill upon patient request if the [...] Team Related Persons Name: FAUZIA HASSAN Address: [address] [address]
--- OUTSIDE RECORDS SUMMARY | 2023-12-03 08:01 | XMS_ITS | Continuity of Care Document ---
Author Organization [facility] Address [address] [place] [address]- Care Team Providers Care Outside Machinist Apprentice Name Role Phone Not on Staff, PCP Primary Care Physician Unavail able Encounter [facility] [place] Date(s): 07/10/22 - 11/07/22 [facility] [address] [place] [id number]- Attending Physician: Kailee Romero MD Referring Physician: Gregoria SORIA, Janie Allergies, Adverse Reactions, Alerts No Known Allergies Medications (Vitamin D3) Cholecalciferol 400 CORRECTION units/mL oral syringe 1 mL = 10 [...] 06/03/22 11:08:00 EST, Route to Pharmacy Electronically, [facility]/pharmacy #[id number], Partial fill upon patient request if the [...] Name: Anthony Dozier RN Position: [facility] RN Member Role: Primary Care Nurse Name: Travon Armas RN Position: [facility] RN Member Role: Primary Care Nurse Name: Rylee Reyes RN Position: [facility] RN Member Role: Primary Care Nurse Name: Hernán Pettit RN Position: [facility] RN Member Role: Primary Care Nurse Name: Salas Chaudhari RN Position: [facility] RN Member Role: Primary Care Nurse Name: Not on Staff, PCP Position: [facility] Physician (General Medicine) Member Role: PCP Name: Waylon Garay RN Position: [facility] RN Member Role: Primary Care Nurse Care Team Related Persons Name: FAUZIA HASSAN Address: [address] [address]
--- OUTSIDE RECORDS SUMMARY | 2023-12-03 08:01 | XMS_ITS | Continuity of Care Document ---
Author Organization [facility] Address [address] [place] [phone]- Care Team Providers Care Mental Health Practitioner Name Role Phone Not on Staff, PCP Primary Care Physician Unavail able Encounter [facility] [place] Date(s): 10/21/22 - 11/20/22 [facility] [address] [place] [address]- Attending Physician: Rebeca Rosas Admitting Physician: Rebeca [...] 06/03/22 11:08:00 EST, Route to Pharmacy Electronically, [facility]/pharmacy #[id number], Partial fill upon patient request if the [...] Team Personnel Name: Anthony Dozier RN Position: [facility] RN Member Role: Primary Care Nurse Name: Travon Armas RN Position: [facility] RN Member Role: Primary Care Nurse Name: Rylee Reyes RN Position: [facility] RN Member Role: Primary Care Nurse Name: Hernán Pettit RN Position: [facility] RN Member Role: Primary Care Nurse Name: Salas Chaudhari RN Position: [facility] RN Member Role: Primary Care Nurse Name: Not on Staff, PCP Position: [facility] Physician (General Medicine) Member Role: PCP Name: Waylon Garay RN Position: [facility] RN Member Role: Primary Care Nurse Care Team Related Persons Name: FAUZIA HASSAN Address: [address] [address]
--- OUTSIDE RECORDS SUMMARY | 2023-12-03 08:01 | XMS_ITS | Continuity of Care Document ---
Author Organization [facility] Address [address] [place] [address]- Care Team Providers Care Rocket Scientist Name Role Phone Not on Staff, PCP Primary Care Physician Unavail able Encounter [facility] Date(s): 05/17/22 - 06/16/[address] [address]- Allergies, Adverse Reactions, Alerts No Known Allergies Medications (Vitamin D3) Cholecalciferol 400 DETENTION units/mL oral syringe 1 mL = 10 [...] 06/03/22 11:08:00 EST, Route to Pharmacy Electronically, [facility]/pharmacy #[id number], Partial fill upon patient request if the [...] Team Personnel Name: Anthony Dozier RN Position: [facility] RN Member Role: Primary Care Nurse Name: Travon Armas RN Position: [facility] RN Member Role: Primary Care Nurse Name: Rylee Reyes RN Position: [facility] RN Member Role: Primary Care Nurse Name: Hernán Pettit RN Position: [facility] RN Member Role: Primary Care Nurse Name: Salas Chaudhari RN Position: [facility] RN Member Role: Primary Care Nurse Name: Not on Staff, PCP Position: [facility] Physician (General Medicine) Member Role: PCP Name: Waylon Garay RN Position: [facility] RN Member Role: Primary Care Nurse Care Team Related Persons Name: FAUZIA HASSAN Address: [address] [address]
== END 2023-12-02 05:29 | disposition home or self-care (01) ==
PROVIDERS: Emergency Provider Emergency Medicine; PCP Internal Medicine
DX: R07.89 Other chest pain (principal); R42 Dizziness and giddiness; R06.02 Shortness of breath; Z79.899 Other long term (current) drug therapy
CPT/HCPCS: 36415; 71045; 80048; 83880; 84484; 85025; 93005; 99285

== ENCOUNTER 2023-12-23 14:15 | Outpatient (REF) | payer OTHER, SELFPAY ==
[2023-12-26 09:12] LABS: TS Negative Control Passed; TS Panel A 0; TS Panel B 0; TS Positive Control Passed; TSpotTB Negative (Negative)
== END 2023-12-23 14:16 | disposition home or self-care (01) ==
LOC: HO.CHCLDS 14:15
PROVIDERS: Visit Provider Pediatrics
DX: Z13.89 Encounter for screening for other disorder (principal)
CPT/HCPCS: 36415; 86481

== ENCOUNTER 2024-12-24 10:25 | Outpatient (REF) | payer OTHER, SELFPAY ==
--- OUTSIDE RECORDS SUMMARY | 2024-12-23 13:15 | XMS_ITS | Encounter Summary ---
Author Organization [employer] [place] Address [address] [facility] 7 [place] [address] Care Team Providers Care Senior Engineering Specialist Name Role Phone Maria Luisa Briseno MD Primary Care Provider [phone] Encounter Details Date Type Department Care Team ([facility] st Contact Info) Description 12/23/2024 1:15 PM EDT Office Visit [facility] MED & PEDS [address], [place] [phone] Maria Luisa Briseno MD [address] [place] [address] Dyslipidemia (Primary Dx); Primary hypertension; Cerebrovascular accident (CVA), unspecified mechanism (CMS/HCC) Social History Tobacco Use Types Packs/Day Years Used Date Smoking Tobacco: Never Passive Smoke Exposure: Never Smokeless Tobacco: Never Depression Answer Date Recorded Patient Health Questionnaire-9 Score 4 12/23/2024 Patient Health Questionnaire-9 Score 4 12/23/2024 Last PHQ-9: Questionnaire Data Not on file 0 12/23/2024 Housing Stability Answer Date Recorded What is your housing situation today? I have jay tran 09/20/[address] you li ve. Do you have problems with any of the following? None of the above 09/20/2024 Food Insecurity Answer Date Recorded Within the past 12 months, y ou worried that your food would run out before you got money to buy more: Never True 09/20/2024 Within the past 12 months,th e food you bought just didn't last and you didn't have enough money to get more: Never True 12/2024 Transportation Answer Date Recorded In the past 12 months, has l ack of transportation kept you from medical appts, meetings, work or from getting things needed for daily living? No 09/20/2024 Utilities Answer Date Recorded In the past 12 months, has t he electric, gas, oil or water company threatened to shut off services in your home? No 09/20/2024 Depression Answer Date Recorded Patient Health Questionnaire-2 Score 2 12/23/2024 Internet Access Answer Date Recorded Internet Access Q1 Yes 09/20/2024 Internet Access Q2 Not on file 09/20/2024 Sex and Gender Information Value Date Recorded Sex Assigned at Male 02/11/2022 10:36 AM EDT Legal Sex Male 10:36 AM EDT Gender Identity Male 06/06/2022 9:13 AM EST Sexual Orientation Straight 02/11/2022 10 :36 AM EDT documented as of this encounter Last Filed Vital Signs Vital Sign Reading Time Taken Comments Blood Pressure 142/70 12/23/2024 1:02 PM EDT Pulse 64 12/23/2024 1:02 PM EDT Temperature 37.5 C (99.5 F) 12/23/2024 1:02 PM EDT Respiratory Rate 16 12/23/2024 1:02 PM EDT Oxygen Saturation - - Inhaled Oxygen Concentration - - Weight 67.6 kg (149 lb) 12/23/2024 1:02 PM EDT Height 177.8 cm (5' 10 ) 12/23/2024 1:02 PM EDT Body Mass Index 21.38 12/23/2024 1:02 PM EDT documented in this encounter Functional Status * Over the past 2 weeks, how often have you been bothered by any of the following problems? Question Answer Date of Assessment Author Patient Health Questionnaire -2 Score 2 12/23/2024 1:01 PM EDT Sam Knowles MA * Little interest or pleasure in doing things Answer Date of Assessment Author Several days 12/23/2024 1:01 PM EDT Yina Knowles MA * Feeling down, depressed, or hopeless Answer Date of Assessment Author Several days 12/23/2024 1:01 PM EDT Yina Knowles MA * Trouble falling or staying asleep, or sleeping too much Answer Date of Assessment Author Not at all 12/23/2024 1:01 PM EDT Yina Knowles MA * Feeling tired or having little energy Answer Date of Assessment Author Several days 12/23/2024 1:01 PM EDT Yina Knowles MA * Poor appetite or overeating Answer Date of Assessment Author Not at all 12/23/2024 1:01 PM EDT Yina Knowles MA * Feeling bad about yourself - or that you are a failure or have let yourself or your family down Answer Date of Assessment Author Not at all 12/23/2024 1:01 PM EDT Yina Knowles MA * Trouble concentrating on things, such as reading the newspaper or watching television Answer Date of Assessment Author Several days 12/23/2024 1:01 PM EDT Yina Knowles MA * Moving or speaking so slowly that other people could have noticed? Or the opposite - being so fidgety or restless that you have been moving around a lot more than usual. Answer Date of Assessment Author Not at all 12/23/2024 1:01 PM EDT Yina Knowles MA * Thoughts that you would be better off or hurting yourself in some way Answer Date of Assessment Author Not at all 12/23/2024 1:01 PM EDT Yina Knowles MA * Patient Health Questionnaire-9 Score Answer Date of Assessment Author 4 12/23/2024 1:01 PM EDT Yina Knowles MA * How difficult have these problems made it for you to do your work, take care of things at home, or get along with other people? Answer Date of Assessment Author Not difficult at all 12/23/2024 1:01 PM EDT Yina Brown MA documented as of this encounter Progress Notes * Maria Luisa Briseno MD - 12/23/2024 1:15 PM EDT Subjective Patient ID: Shaheed King is a 83 y.o. male who presents for follow-up. Shaheed is an 83-year-old male patient of ours here with son who is his main caregiver for follow-upHealthcare maintenance. 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 Patient has gained a little bit of weight since last visit but son says that due to having dentures he is not eating a lot of protein as he cannot chew meats very well. No new complaints of urinary incontinence, blood in stool, insomnia etc. Review of Systems Constitutional: Negative for activity change, chills, fever and unexpected weight change. Respiratory: Negative for cough, shortness of breath and wheezing. Cardiovascular: Negative for chest pain, palpitations and leg swelling. Gastrointestinal: Negative for abdominal pain, blood in stool and constipation. Endocrine: Negative for polydipsia and polyuria. Genitourinary: Negative for decreased urine volume, difficulty urinating, dysuria, enuresis and hematuria. Musculoskeletal: Negative for arthralgias and gait problem. Skin: Negative for color change and rash. Neurological: Positive for numbness. Negative for dizziness, light-headedness and headaches. Hematological: Negative for adenopathy. Psychiatric/Behavioral: Negative for dysphoric mood, hallucinations, sleep disturbance and suicidalideas. The patient is not nervous/anxious. Objective BP (!) 142/70 (BP Location: Left arm, Patient Position: Sitting, BP Cuff Size: Adult) Pulse 64 Temp 99.5 ??F (37.5 ??C) (Oral) Resp 16 Ht 5' 10 (1.778 m) Wt 149 lb (67.6 kg) BMI 21.38 kg/m?? Physical Exam Vitals reviewed. Constitutional: General: He is not in acute distress. Appearance: Normal appearance. He is not ill-appearing. Comments: Well-dressed, clean looking HENT: Head: Normocephalic. Right Ear: Tympanic membrane normal. Left Ear: Tympanic membrane normal. Mouth/Throat: Mouth: Mucous membranes are moist. Eyes: Pupils: Pupils are equal, round, and reactive to light. Cardiovascular: Rate and Rhythm: Normal rate and regular rhythm. Heart sounds: Normal heart sounds. No murmur heard. Pulmonary: Effort: Pulmonary effort is normal. No respiratory distress. Breath sounds: Normal breath sounds. Abdominal: Palpations: Abdomen is soft. Musculoskeletal: Right lower leg: No edema. Left lower leg: No edema. Skin: Findings: No rash. Neurological: Mental Status: He is alert and oriented to person, place, and time. Mental status is at baseline. Motor: Weakness and atrophy present. Psychiatric: Mood and Affect: Mood normal. Behavior: Behavior normal. Thought Content: Thought content normal. Judgment: Judgment normal. Assessment/Plan Diagnoses and all orders for this visit: Dyslipidemia Comments: Patient is on high-dose Lipitor. Denies side effect. Due for fasting labs which were ordered today.Will discuss results with son who is main caregiver. Orders: - Albumin, Random Urine W/Creatinine; Future - CBC auto differential; Future - Basic Metabolic Panel, Fasting; Future - Hepatic Function Panel; Future - Lipid Panel, Standard; Future - TSH W/Reflex to FT4; Future - Vitamin B12/Folate, Serum Panel; Future Primary hypertension Comments: BP well-controlled on current meds amlodipine and carvedilol. Also on baby aspirin daily due to history of stroke. Continue with no changes. Call if systolic values ranging above 140 frequently. Otherwise follow-up with me in 6 months. Call son with results of blood work when available. Shingrix vaccine prescribed today and will be received at [facility] pharmacy. Placed patient on flu shot waiting list. Orders: - Albumin, Random Urine W/Creatinine; Future - CBC auto differential; Future - Basic Metabolic Panel, Fasting; Future - Hepatic Function Panel; Future - Lipid Panel, Standard; Future - TSH W/Reflex to FT4; Future - Vitamin B12/Folate, Serum Panel; Future Cerebrovascular accident (CVA), unspecified mechanism (CMS/HCC) Comments: Patient with right upper extremity residual weakness. Uses cane for ambulation. Ensuring 1 to twicea day prescribed today as he has dentures and appetite varies frequently. Orders: - Albumin, Random Urine W/Creatinine; Future - CBC auto differential; Future - Basic Metabolic Panel, Fasting; Future - Hepatic Function Panel; Future - Lipid Panel, Standard; Future - TSH W/Reflex to FT4; Future - Vitamin B12/Folate, Serum Panel; Future Other orders - Acetaminophen 500 MG capsule; Take 1 capsule orally tid prn pain - zoster vaccine-recombinant adjuvanted (Shingrix) 50 MCG/0.5ML vaccine; Inject 0.5 mL (50 mcg) into the muscle 1 (one) time for 1 dose. documented in this encounter Plan of Treatment Scheduled Orders Name Type Priority Associated Diagnoses Orde r Schedule Albumin, Random Urine W/Creatinine Lab Routine Dyslipidemia Primary hypertension Cerebrovascular accident (CVA), unspecified mechanism (CMS/HCC) Expected: 12/23/2024 (Approximate), Expires: 12/23/2025 CBC auto differential Lab Routine Dyslipidemia Primary hypertension Cerebrovascular accident (CVA), unspecified mechanism (CMS/HCC) Expected: 12/23/2024 (Approximate), Expires: 12/23/2025 Basic Metabolic Panel, Fasting Lab Routine Dyslipidemia Primary hypertension Cerebrovascular accident (CVA), unspecified mechanism (CMS/HCC) Expected: 12/23/2024 (Approximate), Expires: 12/23/2025 Hepatic Function Panel Lab Routine Dyslipidemia Primary hypertension Cerebrovascular accident (CVA), unspecified mechanism (CMS/HCC) Expected: 12/23/2024 (Approximate), Expires: 12/23/2025 Lipid Panel, Standard Lab Routine Dyslipidemia Primary hypertension Cerebrovascular accident (CVA), unspecified mechanism (CMS/HCC) Expected: 12/23/2024 (Approximate), Expires: 12/23/2025 TSH W/Reflex to FT4 Lab Routine Dyslipidemia Primary hypertension Cerebrovascular accident (CVA), unspecified mechanism (CMS/HCC) Expected: 12/23/2024 (Approximate), Expires: 12/23/2025 Vitamin B12/Folate, Serum Panel Lab Routine Dyslipidemia Primary hypertension Cerebrovascular accident (CVA), unspecified mechanism (CMS/HCC) Expected: 12/23/2024, Expires: 12/23/2025 documented as of this encounter Visit Diagnoses Diagnosis Dyslipidemia- Primary Other and unspecified hyperlipidemia Primary hypertension Unspecified essential hypertension Cerebrovascular accident (CVA), unspecified mechanism (CMS/HCC) documented in this encounter Additional Health Concerns Assessment Noted Time PHQ-9 Depression Total Score: 4 12/24/19 25 1:01 PM EDT documented as of this encounter Care Teams Senior Engineering Specialist Relationship Specialty Start Date End Date Maria Luisa Briseno MD [address] [place] [id number] PCP - General Internal Medicine 06/06/22 documented as of this encounter
--- OUTSIDE RECORDS SUMMARY | 2024-12-24 11:57 | XMS_ITS | Encounter Summary ---
Author Organization [employer] Address 75 [facility] 7 [place] [address] Care Team Providers Care Induction Machine Setter Name Role Phone Maria Luisa Briseno MD Primary Care Provider [phone] Reason for Visit * Reason Comments Med Refill Encounter Details Date Type Department Care Team ([facility] st Contact Info) Description 03/13/2023 Refill [facility] CHC MED & PEDS [address] [place], [place] [phone] Maria Luisa Briseno MD [address] [place] [address] Social History Tobacco Use Types Packs/Day Years Used Date Smoking Tobacco: Never Passive Smoke Exposure: Never Smokeless Tobacco: Never Depression Answer Date Recorded Patient Health Questionnaire-9 Score 8 07/23/2022 Housing Stability Answer Date Recorded What is your housing situation today? I have jayaurora tran 01/29/[address] you li ve. Do you have problems with any of the following? None of the above 01/29/2023 Food Insecurity Answer Date Recorded Within the past 12 months, y ou worried that your food would run out before you got money to buy more: Never True 01/29/2023 Within the past 12 months,th e food you bought just didn't last and you didn't have enough money to get more: Never True Transportation Answer Date Recorded In the past 12 months, has l ack of transportation kept you from medical appts, meetings, work or from getting things needed for daily living? No 01/29/2023 Utilities Answer Date Recorded In the past 12 months, has t he electric, gas, oil or water company threatened to shut off services in your home? No 01/29/2023 Depression Answer Date Recorded Patient Health Questionnaire-2 Score 0 07/23/2022 Sex and Gender Information Value Date Recorded Sex Assigned at Male 02/11/2022 10:36 AM EDT Legal Sex Male 10:36 AM EDT Gender Identity Male 06/06/2022 9:13 AM EST Sexual Orientation Straight 02/11/2022 10 :36 AM EDT documented as of this encounter Plan of Treatment Not on file documented as of this encounter Visit Diagnoses Not on filedocumented in this encounter Additional Health Concerns Assessment Noted Time PHQ-9 Depression Total Score: 8 07/24/19 10:15 AM EDT documented as of this encounter Care Teams Induction Machine Setter Relationship Specialty Start Date End Date Maria Luisa Briseno MD [address] [place] [address] PCP - General Internal Medicine 06/06/22 documented as of this encounter
--- OUTSIDE RECORDS SUMMARY | 2024-12-24 11:57 | XMS_ITS | Clinical Summary ---
Author Organization [employer] Address [address] [facility] 7t [place] [address] Care Team Providers Care Architectural Draftsman Name Role Phone Maria Luisa Briseno MD Primary Care Provider [phone] Allergies No known active allergies Medications FeroSul 325 (65 Fe) MG tablet Take 1 tablet by mouth with breakfast, with lunch, and with evening meal. 05/22/19 23 Active ketorolac (Acular) 0.5 % ophthalmic solution PLEASE SEE ATTACHED FOR DETAILED DIRECTIONS 09/05/19 23 Active baclofen (Lioresal) 10 MG tabletIndicati ons:Muscle spasm Take 0.5 tablets (5 mg) by mouth 3 times daily. 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 90 tablet 3 06/04/19 25 Active hydrALAZINE (Apresoline) 25 MG tablet TAKE 1 TABLET (25 MG) BY MOUTH 3 TIMES DAILY 90 tablet 1 06/25/19 25 Active pantoprazole (ProtoNix) 40 MG EC tablet TAKE 1 TABLET BY MOUTH TWICE DAILY BEFORE BREAKFAST AND BEFORE EVENING MEAL 60 tablet 1 09/14/19 25 Active amLODIPine (Norvasc) 10 MG tablet TAKE 1 TABLET BY MOUTH EVERY DAY IN THE MORNING 30 tablet 5 10/22/19 25 Active gabapentin (Neurontin) 100 MG capsule TAKE 2 CAPSULES BY MOUTH AT BEDTIME 60 capsule 3 12/02/19 25 Active atorvastatin (Lipitor) 80 MG tablet TAKE 1 TABLET BY MOUTH EVERYDAY AT BEDTIME 90 tablet 1 12/21/19 25 Active carvedilol (Coreg) 6.25 MG tablet TAKE 2 TABLETS BY MOUTH TWICE DAILY AFTER MEALS 120 tablet 12/23/19 25 Active Acetaminophen 500 MG capsule Take 1 capsule orally tid prn pain 30 capsule 3 12/24/19 25 Active atorvastatin (Lipitor) 80 MG tablet TAKE 1 TABLET BY MOUTH EVERYDAY AT BEDTIME 90 tablet 1 06/29/19 25 025 Discontinued gabapentin (Neurontin) 100 MG capsule TAKE 2 CAPSULES BY MOUTH AT BEDTIME 60 capsule 3 07/08/19 25 025 Discontinued carvedilol (Coreg) 6.25 MG tablet TAKE 2 TABLETS BY MOUTH TWICE DAILY AFTER MEALS 120 tablet 11/25/19 25 025 Discontinued zoster vaccine-recomb inant adjuvanted (Shingrix) 50 MCG/0.5ML vaccine Inject 0.5 mL (50 mcg) into the muscle 1 (one) time for 1 dose. 0.5 mL 12/24/19 25 025 Active Problems Problem Noted Date Diagnosed Date Hypertension 01/31/2023 Assessment & Plan (01/31/2023 11:48 AM EDT): Controlled: Patient had a decrease of blood pressure medication: 50mg to 25mg. -Advised to keep monitoring blood pressure at home. -Follow up in 1 week. Non-ST elevation myocardial infarction (NSTEMI) 06/06/2022 Stroke 06/06/2022 Dyslipidemia 06/06/2022 Encounters Date Type Department Care Team Description 12/23/2024 1:15 PM EDT Office Visit [facility] MED & PEDS [address] [place] [address] Maria Luisa Briseno MD Dyslipidemia (Primary Dx); Primary hypertension; Cerebrovascular accident (CVA), unspecified mechanism (CMS/HCC) 12/23/2024 Travel 12/22/2024 Refill [facility] MED & PEDS [address] [place] [address] Maria Luisa Briseno MD 12/21/2024 Telephone [facility] [address] [place] [address] Maria Luisa Briseno MD Chart Prep 12/20/2024 Refill [facility] MED & PEDS [address] [place] [address] Maria Luisa Briseno MD 12/01/2024 Refill [facility] MED [facility] PEDS [address] [place] [address] Maria Luisa Briseno MD 11/23/2024 Refill [facility] PEDS [address] [place] [address] Mraia Luisa Briseno MD 10/21/2024 Refill [facility] PEDS [address] [place] [address] Hanny Gottlieb MD 09/29/2024 Telephone [facility] [address] [place] [id number] Maria Luisa Briseno MD No Show 09/28/2024 Telephone [facility] MED [facility] PEDS [address] [place] [address] Maria Luisa Briseno MD Chart Prep from Last 3 Months Immunizations Immunization Administration Dates Next Due Influenza injectable quadrivalent preservative f ree 01/07/2023 Zoster, Recombinant 12/23/2024 Social History Tobacco Use Types Packs/Day Years Used Date Smoking Tobacco: Never Passive Smoke Exposure: Never Smokeless Tobacco: Never Tobacco Cessation:Counseling Given: Not Answered Depression Answer Date Recorded Patient Health Questionnaire-9 [...] Orientation Straight 02/11/2022 10 :36 AM EDT Last Filed Vital Signs Vital Sign Reading Time Taken Comments Blood Pressure 142/70 12/23/2024 1:02 PM EDT Pulse 64 12/23/2024 1:02 PM EDT Temperature 37.5 C (99.5 F) 12/23/2024 1:02 PM EDT Respiratory Rate 16 12/23/2024 1:02 PM EDT Oxygen Saturation 98% 06/30/2023 3:21 PM EDT Inhaled Oxygen Concentration - - Weight 67.6 kg (149 lb) 12/23/2024 1:02 PM EDT Height 177.8 cm (5' 10 ) 12/23/2024 1:02 PM EDT Body Mass Index 21.38 12/23/2024 1:02 PM EDT Plan of Treatment Health Maintenance Due Date Last Done Comments Lipid Panel 1940 DTaP/Tdap/Td Vaccines (1 - Tdap) 1961 Pneumococcal Vaccine: 50+ Years (1 of 2 - PCV) 1961 RSV Patients and Patients Aged 60 years or older (1 - 1-dose 75+ series) 2017 COVID-19 Vaccine (1 - 2023-2 5 season) 2024 Influenza Vaccine (#1) 2024 01/07/2023 Zoster Vaccines (2 of 2) 02/17/2025 12/23/2024 SDOH Screening 09/20/2025 09/20/2024 Alcohol/Substance Use Screening 12/23/2025 12/23/2024 Depression Screening 12/23/2025 12/23/2024, 12/23/2024 Tobacco Screening 12/23/2025 12/23/2024 HIB Vaccines Aged Out No longer eligi ble based on patient's age to complete this topic HPV Vaccines Aged Out No longer eligi ble based on patient's age to complete this topic Hepatitis A Vaccines Aged Out No long er eligible based on patient's age to complete this topic Hepatitis B Vaccines Aged Out No long er eligible based on patient's age to complete this topic IPV Vaccines Aged Out No longer eligi ble based on patient's age to complete this topic Meningococcal B Vaccine Aged Out No l onger eligible based on patient's age to complete this topic Meningococcal Vaccine Aged Out No hayden nasir eligible based on patient's age to complete this topic RSV under 20 months Aged Out No longe r eligible based on patient's age to complete this topic Rotavirus Vaccines Aged Out No longer eligible based on patient's age to complete this topic Insurance [facility] [employer] (O D-SNP) ALE[place]ER SHEIKH [id number] Care Teams Architectural Draftsman Relationship Specialty Start Date End Date Maria Luisa Briseno MD [address] [place] [id number] PCP - General Internal Medicine 06/06/22
--- OUTSIDE RECORDS SUMMARY | 2024-12-24 11:57 | XMS_ITS | Encounter Summary ---
Author Organization [employer] Address [address] [facility] 7 [place] [address] Care Team Providers Care Manager Of Training Name Role Phone Maria Luisa Briseno MD Primary Care Provider [phone] Reason for Visit * Reason Onset Date Comments Med Refill 08/11/2023 Encounter Details Date Type Department Care Team ([facility] st Contact Info) Description 08/11/2023 Refill [facility] MED & PEDS [address] [place] [address] Maria Luisa Briseno MD [address] [place] [address] Social History Tobacco Use Types Packs/Day Years Used Date Smoking Tobacco: Never Passive Smoke Exposure: Never Smokeless Tobacco: Never Depression Answer Date Recorded Patient Health Questionnaire-9 Score 8 07/23/2022 Housing Stability Answer Date Recorded What is your housing situation today? I have jay tran 01/29/[address] you [...] documented as of this encounter Care Teams Manager Of Training Relationship Specialty Start Date End Date Maria Luisa Briseno MD [address] [place] [address] PCP - General Internal Medicine 06/06/22 documented as of this encounter
--- OUTSIDE RECORDS SUMMARY | 2024-12-24 11:57 | XMS_ITS | Encounter Summary ---
Author Organization [employer] Address 75 [facility] 7t [place] [address] Care Team Providers Care Application Security Architect Name Role Phone Maria Luisa Briseno MD Primary Care Provider [phone] Reason for Visit * Reason Comments Med Refill Encounter Details Date Type Department Care Team ([facility] st Contact Info) Description 07/26/2024 Refill [facility] CHC MED & PEDS [address] [place], [place] [phone] Marlene Corona MD [address] [place] [address] Social History Tobacco Use Types Packs/Day Years Used Date Smoking Tobacco: Never Passive Smoke Exposure: Never Smokeless Tobacco: Never Depression Answer Date Recorded Patient Health Questionnaire-9 Score 8 07/23/2022 Housing Stability Answer Date Recorded What is your housing situation today? I have jay marc 01/29/[address] you li [...] documented as of this encounter Care Teams Application Security Architect Relationship Specialty Start Date End Date Maria Luisa Briseno MD [address] [place] [address] PCP - General Internal Medicine 06/06/22 documented as of this encounter
--- OUTSIDE RECORDS SUMMARY | 2024-12-24 11:57 | XMS_ITS | Encounter Summary ---
Author Organization [employer] Address [address] [facility] 7 [place] [address] Care Team Providers Care Armor Reconnaissance Specialist Name Role Phone Maria Luisa Briseno MD Primary Care Provider [phone] Reason for Visit * Reason Comments Med Refill Encounter Details Date Type Department Care Team ([facility] st Contact Info) Description 07/26/2024 Refill [facility] CHC MED & PEDS [address] [place], [place] [phone] Maria Luisa Briseno MD [address] [place] [address] Social History Tobacco Use Types Packs/Day Years [...] documented as of this encounter Care Teams Armor Reconnaissance Specialist Relationship Specialty Start Date End Date Maria Luisa Briseno MD [address] [place] [address] PCP - General Internal Medicine 06/06/22 documented as of this encounter
--- OUTSIDE RECORDS SUMMARY | 2024-12-24 11:57 | XMS_ITS | Encounter Summary ---
Author Organization [employer] Address [address] [facility] [address] [place] [address] Care Team Providers Care Tinner Automatic Name Role Phone Maria Luisa Briseno MD Primary Care Provider [phone] Encounter Details Date Type Department Care Team (Latest Contact Info) Description 12/23/2024 Travel Social History Tobacco Use Types Packs/Day Years [...] AM EDT documented as of this encounter Functional Status * Over the past 2 weeks, how often have you been bothered by any of the following problems? Question Answer Date of Assessment Author Patient Health Questionnaire -2 Score 2 12/23/2024 1:01 PM Sam Alanis MA * Little interest or pleasure in doing things Answer Date of Assessment Author Several days 12/23/2024 1:01 PM Yina Alanis MA * Feeling down, depressed, or hopeless Answer Date of Assessment Author Several days 12/23/2024 1:01 PM Yina Alanis MA * Trouble falling or staying asleep, or sleeping too much Answer Date of Assessment Author Not at all 12/23/2024 1:01 PM Yina Alanis MA * Feeling tired or having little energy Answer Date of Assessment Author Several days 12/23/2024 1:01 PM Yina Alanis MA * Poor appetite or overeating Answer Date of Assessment Author Not at all 12/23/2024 1:01 PM Yina Alanis MA * Feeling bad about yourself - or that you are a failure or have let yourself or your family down Answer Date of Assessment Author Not at all 12/23/2024 1:01 PM Yina Alanis MA * Trouble concentrating on things, such as reading the newspaper or watching television Answer Date of Assessment Author Several days 12/23/2024 1:01 PM Yina Alanis MA * Moving or speaking so slowly that other people could have noticed? Or the opposite - being so fidgety or restless that you have been moving around a lot more than usual. Answer Date of Assessment Author Not at all 12/23/2024 1:01 PM Yina Alanis MA * Thoughts that you would be [...] Brown MA documented as of this encounter Plan of Treatment Not on file documented as of this encounter Visit Diagnoses Not on filedocumented in this encounter Additional Health Concerns Assessment Noted Time PHQ-9 Depression Total Score: 4 12/24/19 25 1:01 PM EDT documented as of this encounter Care Teams Tinner Automatic Relationship Specialty Start Date End Date Maria Luisa Briseno MD [address] [place] [id number] PCP - General Internal Medicine 06/06/22 documented as of this encounter
--- OUTSIDE RECORDS SUMMARY | 2024-12-24 11:57 | XMS_ITS | Encounter Summary ---
Author Organization [employer] Address [address] [facility] 7 [place] [address] Care Team Providers Care Pipe Liner Name Role Phone Maria Luisa Briseno MD Primary Care Provider [phone] Reason for Visit * Reason Onset Date Comments status 07/01/2022 Encounter Details Date Type Department Care Team (Late st Contact Info) Description 07/01/2022 Telephone [facility] [address] [place] [address] Maria Luisa Briseno MD [address] [place] [address] status Social History Tobacco Use Types Packs/Day Years Used Date Smoking Tobacco: Never Smokeless Tobacco: Never Sex and Gender Information Value Date Recorded Sex Assigned at Male 02/11/2022 10:36 AM EDT Legal Sex Male 10:36 AM EDT Gender Identity Male 06/06/2022 9:13 AM EST Sexual Orientation Straight 02/11/2022 10 :36 AM EDT COVID-19 Exposure Response Date Recorded In the last 10 days, have yo u been in contact with someone who was confirmed or suspected to have Coronavirus/COVID-19? No / Unsure 06/06/2022 9:08 AM EST documented as of this encounter Miscellaneous Notes * Telephone Encounter - Laurie Brady RN - 07/01/2022 1:03 PM EDT Please f/u with below. Thank you. * Telephone Encounter - Jameel Nathen - 07/01/2022 12:50 PM EDT Tc from [facility] Requesting status on doc faxed over needs to be sign and faxed over to Please contact suhas at [phone] documented in this encounter Plan of Treatment Not on file documented as of this encounter Visit Diagnoses Not on filedocumented in this encounter Additional Health Concerns Assessment Noted Time PHQ-9 Depression Total Score: 0 06/06/19 9:30 AM EST documented as of this encounter Care Teams Pipe Liner Relationship Specialty Start Date End Date Maria Luisa Briseno MD [address] [place] [address] PCP - General Internal Medicine 06/06/22 documented as of this encounter
--- OUTSIDE RECORDS SUMMARY | 2024-12-24 11:57 | XMS_ITS | Encounter Summary ---
Author Organization [employer] Address [address] [facility] 7 [place] [address] Care Team Providers Care Data Communications Software Consultant Name Role Phone Maria Luisa Briseno MD Primary Care Provider [phone] Reason for Visit * Reason Comments Med Refill Encounter Details Date Type Department Care Team ([facility] st Contact Info) Description 12/20/2024 Refill [facility] PEDS [address] [place], [place] [phone] Maria Luisa Briseno MD [address] [place] [address] Social History Tobacco Use Types Packs/Day Years [...] Recorded Patient Health Questionnaire-2 Score 0 07/23/2022 Internet Access Answer Date Recorded Internet Access [...] documented as of this encounter Care Teams Data Communications Software Consultant Relationship Specialty Start Date End Date Maria Luisa Briseno MD [address] [place] [phone] PCP - General Internal Medicine 06/06/22 documented as of this encounter
--- OUTSIDE RECORDS SUMMARY | 2024-12-24 11:57 | XMS_ITS | Encounter Summary ---
Author Organization [employer] Address [address] [facility] [address] [place] [address] Care Team Providers Care Airplane Engineer Name Role Phone Maria Luisa Briseno MD Primary Care Provider [phone] Reason for Visit * Reason Comments Med Refill Encounter Details Date Type Department Care Team ([facility] st Contact Info) Description 12/22/2024 Refill [facility] PEDS [address] [place], [place] [phone] Maria Luisa Briseno MD [address] [place] [address] Social History Tobacco Use Types Packs/Day Years [...] Time PHQ-9 Depression Total Score: 8 07/24/19 23 10:15 AM EDT documented as of this encounter Care Teams Airplane Engineer Relationship Specialty Start Date End Date Maria Luisa Briseno MD [address] [place] [address] PCP - General Internal Medicine 06/06/22 documented as of this encounter
--- OUTSIDE RECORDS SUMMARY | 2024-12-24 11:57 | XMS_ITS | Encounter Summary ---
Author Organization [employer] Address [address] [facility] [address] [place] [address] Care Team Providers Care Head Of Commission Department Name Role Phone Maria Luisa Briseno MD Primary Care Provider [phone] Reason for Visit * Reason Onset Date Comments Chart Prep 12/21/2024 Encounter Details Date Type Department Care Team ([facility] st Contact Info) Description 12/21/2024 Telephone [facility] MED [facility] PEDS [address] [place], [place] [phone] Maria Luisa Briseno MD [address] [place] [address] Chart Prep Social History Tobacco Use Types Packs/Day Years [...] AM EDT documented as of this encounter Miscellaneous Notes * Telephone Encounter - Yina Knowles MA - 12/21/2024 9:21 AM EDT Chart Prep Labs: done Images: done Referrals: not applicable Vaccines due: PCV20, Tdap, RSV, and Zoster Screenings: not applicable Overdue care gaps: SBIRT, PHQ-9, and Tobacco documented in this encounter Plan of Treatment Not on file documented as of this encounter Visit Diagnoses Not on filedocumented in this encounter Additional Health Concerns Assessment Noted Time PHQ-9 Depression Total Score: 8 07/24/19 23 10:15 AM EDT documented as of this encounter Care Teams Head Of Commission Department Relationship Specialty Start Date End Date Maria Luisa Briseno MD [address] [place] [id number] PCP - General Internal Medicine 06/06/22 documented as of this encounter
[2024-12-24 14:24] LABS: MANUAL DIFF FLAG NO
[2024-12-24 14:32] LABS: Hematocrit 38.0 % (42.0-52.0); Hemoglobin 12.6 g/dl (14.0-18.0); Imm Gran Abs Auto 0.02 X10*3/uL (0.00-0.03); Imm Gran Pct Auto 0.2 % (0.0-0.4); Lymphocytes Absolute Auto 1.3 X10*3/uL (1.2-4.9); Mean Corpuscular HGB Conc 33.2 g/dl (31.0-36.0); Mean Corpuscular Hemoglobin 30.0 pg (27.0-33.0); Mean Corpuscular Volume 90.5 fL (80.0-98.0); NRBC Abs Auto 0.000 X10*3/uL (0.0-0.012); NRBC Pct Auto 0.0 /100WBC (0.0-0.2); Platelet Count 181 X10*3/uL (160-400); Red Blood Count 4.20 X10*6/uL (4.60-5.80); White Blood Count 8.6 X10*3/uL (4.8-10.8)
[2024-12-24 15:16] LABS: Alanine Aminotransferase 17 U/L (0-40); Albumin Level 4.5 g/dL (3.5-5.0); Alkaline Phosphatase 94 U/L (39-117); Anion Gap 12 (12-20); Aspartate Amino Transferase 26 U/L (5-37); Blood Urea Nitrogen 12 mg/dL (9-16); Calcium 9.0 mg/dL (8.4-10.2); Carbon Dioxide 25 mmol/L (22-29); Chloride 108 mmol/L (96-108); Cholesterol 113 mg/dL (<200); Estimated Glomerular Filt Rate 58; HDL Cholesterol 36 mg/dL (>40); Potassium 3.6 mmol/L (3.3-5.1); Sodium 141 mmol/L (135-145); Total Protein 7.8 g/dL (6.5-8.0); Triglycerides 102 mg/dL (<150)
[2024-12-24 15:39] LABS: Folate 6.7 ng/mL (> or = 4.0); Vitamin B12 309 pg/mL (200-900)
== END 2024-12-24 10:26 | disposition home or self-care (01) ==
LOC: HO.CHCLDS 10:25
PROVIDERS: Visit Provider Pediatrics
DX: I10 Essential (primary) hypertension (principal); I63.9 Cerebral infarction, unspecified; E78.5 Hyperlipidemia, unspecified
CPT/HCPCS: 36415; 80048; 80061; 80076; 82607; 82746; 84443; 85025